=== PATIENT | male | born 1955 | race Caucasian/White ===

== ENCOUNTER 2022-11-02 16:09 | Emergency (ER) | payer MEDICARE, OTHER, SELFPAY ==
[2022-11-02 16:12] VITALS: BP 157/88; PULSE 61; RESP 16; TEMP 36.7; O2SAT 98
--- NOTE | 2022-11-02 17:08 | DI.RAD.S_ITS ---
PROCEDURE: XR LUMBAR SPINE 2-3V INDICATIONS: Lumbar radiculopathy, spasms, history compression fracture TECHNIQUE: 3 views of the lumbar spine were acquired. COMPARISON: None. FINDINGS: Bones: 5 [id number] vertebrae are present. Small vertebral body osteophytes. Disc space height loss most pronounced at L2-L3 and L5-S1. There is normal bony alignment. No vertebral body compression fractures. No suspicious bony lesions. Soft tissues: Overlying bowel gas pattern is normal. No suspicious soft tissue calcifications. IMPRESSION: [id number] lumbar spine DDD. Dictated by: Ten Chadwick M.D. on 11/02/2022 at 17:32 Approved by: Ten Chadwick M.D. on 11/02/2022 at 17:34
--- NOTE | 2022-11-02 17:09 | ED_ITS ---
HPI - Back Pain/Injury <BA Morris - Last Filed: 11/02/22 18:20> General Chief Complaint: Back Pain/Injury Stated Complaint: back pain Time Seen by Provider: 11/02/22 16:52 Source: patient History of Present Illness HPI Narrative: This is a 67-year-old gentleman presents emergency department low back pain over the last 24 hours with spasms of his low back, primarily on the left side and his upper legs. He denies any weakness, sensation changes, groin paresthesia, dizziness, fever, urinary frequency, incontinence or retention. States that 20 years ago he had a compression fracture of his lumbar spine and has had occasio nal flares of his low back none for many years. He denies any weakness, states that he had spasms and was difficult to sleep. He mowed the lawn yesterday with which exacerbated his low back pain. Related Data Previous Rx's Medication Instructions Recorded hydrocodone 5 mg-acetaminophen 325 1 tab PO TID PRN pain #14 tabs 11/02/22 mg tablet lidocaine 5 % topical patch 1 patch topical DAILY #15 ea 11/02/22 (Lidoderm) naproxen 375 mg tablet 375 mg PO BID PRN pain #20 tabs 11/02/22 omeprazole 20 mg capsule,delayed 20 mg PO BID 7 days #14 caps 11/02/22 release prednisone 50 mg tablet 50 mg PO DAILY #5 tabs 11/02/22 Allergies Allergy/AdvReac Type Severity Reaction Status Date / Time iodine AdvReac Verified 11/02/22 16:16 Penicillins AdvReac Verified 11/02/22 16:16 Review of Systems <BA Morris - Last Filed: 11/02/22 18:20> Review of Systems ROS Unobtainable: All systems reviewed & are unremarkable except as noted in HPI and below Exam <BA Morris - Last Filed: 11/02/22 18:20> Narrative Exam Narrative: Reviewed vitals signs and nursing notes. General: Pleasant, sitting upright, in no acute distress, well groomed, afebrile HEENT: symmetrical facial expressions, moist mucous membranes, neck is supple CV: regular rate and rhythm, warm extremities Respiratory: normal work of breathing, without tachypnea or hypoxia. GI: abdomen soft, nondistended, without CVA tenderness bilaterally. MSK: moves all extremities, no weakness, normal tone, ambulatory without deficit, no tenderness along his cervical/thoracic/lumbar or sacral spine, paraspinal musculature especially on the left side of his lumbar spine is tense, no sensation deficit, normal reflexes, flexion extension against resistance is equal bilaterally on his lower extremities. No rash or sensation deficit. Skin: brisk capillary refill, without rash or wound Neuro: clear speech and normal cognition, A&O x3, GCS 15, no focal motor or sensation deficits Initial Vital Signs Initial Vital Signs: Vital Signs Temperature 98.0 F 11/02/22 16:12 Pulse Rate 61 11/02/22 16:12 Respiratory Rate 16 11/02/22 16:12 Blood Pressure 157/88 H 11/02/22 16:12 Pulse Oximetry 98 11/02/22 16:12 Oxygen Delivery Method Room Air 11/02/22 16:12 <Cal Samuel DO - Last Filed: 11/03/22 12:16> Initial Vital Signs Initial Vital Signs: Vital Signs Temperature 98.0 F 11/02/22 16:12 Pulse Rate 61 11/02/22 16:12 Respiratory Rate 16 11/02/22 16:12 Blood Pressure 157/88 H 11/02/22 16:12 Pulse Oximetry 98 11/02/22 16:12 Oxygen Delivery Method Room Air 11/02/22 16:12 Course <BA Morris - Last Filed: 11/02/22 18:20> Orders Ordered: Discontinued Medications Hydrocodone Bitart/Acetaminophen (Hydrocodone/Acet 5/325 Tablet) 1 tab PO NOW ONE Stop: 11/02/22 16:54 Last Admin: 11/02/22 17:16 Dose: 1 tab Documented By: JAZ Ketorolac Tromethamine (Ketorolac 30 Mg/Ml Vial) 30 mg IM NOW ONE Stop: 11/02/22 16:54 Last Admin: 11/02/22 17:15 Dose: 30 mg Documented By: JAZ Lidocaine (Lidocaine Patch 1 Each Adh..Patch) 1 each TOP NOW ONE Stop: 11/02/22 16:54 Last Admin: 11/02/22 17:15 Dose: 1 each Documented By: JAZ Methocarbamol (Methocarbamol 500 Mg Tablet) 750 mg PO NOW ONE Stop: 11/02/22 16:54 Last Admin: 11/02/22 17:14 Dose: 750 mg Documented By: JAZ Prednisone (Prednisone 20 Mg Tablet) 60 mg PO NOW ONE Stop: 11/02/22 17:09 Last Admin: 11/02/22 17:14 Dose: 60 mg Documented By: JAZ Vital Signs Vital signs: Vital Signs - 8 hr 11/02/22 16:12 11/02/22 17:44 Temperature 98.0 F Pulse Rate 61 50 L Respiratory Rate 16 17 Blood Pressure 157/88 H 148/84 H Pulse Oximetry 98 98 Oxygen Delivery Method Room Air Room Air <Cal Samuel DO - Last Filed: 11/03/22 12:16> Orders Ordered: Discontinued Medications Hydrocodone Bitart/Acetaminophen (Hydrocodone/Acet 5/325 Tablet) 1 tab PO NOW ONE Stop: 11/02/22 16:54 Last Admin: 11/02/22 17:16 Dose: 1 tab Documented By: JAZ Ketorolac Tromethamine (Ketorolac 30 Mg/Ml Vial) 30 mg IM NOW ONE Stop: 11/02/22 16:54 Last Admin: 11/02/22 17:15 Dose: 30 mg Documented By: JAZ Lidocaine (Lidocaine Patch 1 Each Adh..Patch) 1 each TOP NOW ONE Stop: 11/02/22 16:54 Last Admin: 11/02/22 17:15 Dose: 1 each Documented By: JAZ Methocarbamol (Methocarbamol 500 Mg Tablet) 750 mg PO NOW ONE Stop: 11/02/22 16:54 Last Admin: 11/02/22 17:14 Dose: 750 mg Documented By: JAZ Prednisone (Prednisone 20 Mg Tablet) 60 mg PO NOW ONE Stop: 11/02/22 17:09 Last Admin: 11/02/22 17:14 Dose: 60 mg Documented By: JAZ Vital Signs Vital signs: Vital Signs - 8 hr 11/02/22 16:12 11/02/22 17:44 Temperature 98.0 F Pulse Rate 61 50 L Respiratory Rate 16 17 Blood Pressure 157/88 H 148/84 H Pulse Oximetry 98 98 Oxygen Delivery Method Room Air Room Air MDM - Back Pain/Injury <BA Morris - Last Filed: 11/02/22 18:20> Imaging Data Lumbar XR: Radiologist's Impression: PROCEDURE:? XR LUMBAR SPINE 2-3V ? INDICATIONS:? Lumbar radiculopathy, spasms, history compression fracture ? TECHNIQUE:? 3 views of the lumbar spine were acquired.? ? COMPARISON:? None. ? FINDINGS:? ? Bones:? 5 pfh-jst-[id number] vertebrae are present.? Small vertebral body osteophytes.? Disc space height loss most pronounced at L2-L3 and L5-S1.? There is normal bony alignment.? No vertebral body compression fractures.? No suspicious bony lesions.? ? Soft tissues:? Overlying bowel gas pattern is normal.? No suspicious soft tissue calcifications.? ? ? IMPRESSION:? [id number]-lk-[id number] lumbar spine DDD. ? ? Dictated by: Ten Chadwick M.D. on 11/02/2022 at 17:32 ? ? Approved by: Ten Chadwick M.D. on 11/02/2022 at 17:34 ? MDM Narrative Medical decision making narrative: Chief Complaint: Exacerbation of low back pain left-sided sciatica Independent historian: Patient Multiple etiologies for patient's complaint considered including, but not limited to: disc injury/herniation, nerve compression/radiculopathy, paraspinal or other muscular strain, chronic pain, acute fracture, urinary tract infection, osteoarthritis, degenerative disc disease, cauda equina, osteomyelitis, epidural abscess, spinal stenosis, ligamental injury. I have independently reviewed the patient's vital signs and nursing notes as well as prior records if available. My interpretation of imaging: Lumbar spine x-ray shows reduced disk height between L2 and 3 and L5-S1. Course of care: Patient's pain had moderately improved by the time of discharge, x-ray was negative for compression fracture other acute abnormality. breading machine tender but free of any obvious external abnormalities. Patient exam notes decreased range of motion and muscle spasm, but no CVA tenderness, or vertebral point tenderness. There are no symptoms of cauda equina such as saddle anesthesia, and decreased reflexes, decreased sensation or strength. Discussed MRI as patient was concerned about this but he does not have any groin paresthesia, red flag symptoms of back pain, urinary retention or muscle weakness, his reflexes were tested and equal bilaterally, no weakness to lower extremities on exam. Left leg lift exacerbates his symptoms. He will follow up with his primary care provider for referral to physical therapy and or advanced imaging as needed. He was given muscle relaxers, prednisone, naproxen, lidocaine patches and omeprazole and hydrocodone for his week Social considerations that may affect disposition: none Questions are addressed and there is agreement with the plan and for follow-up. I consulted with the ED attending physician Dr. Samuel as needed for higher level of care considerations and they were available for discussion and recommendations regarding plan of care and diagnostic testing. Patient is appropriate for outpatient management. Discharge Plan Departure Patient Disposition: Home Clinical Impression: Lumbar back pain with radiculopathy affecting left lower extremity Degenerative disc disease Qualifiers: Spinal region: lumbosacral Qualified Code(s): M51.37 - Other intervertebral disc degeneration, lumbosacral region Instructions: DI for Sciatica, DI for Muscle Strain, DI for Back Spasm Activity Restrictions/Additional Instructions: *You have been diagnosed with radiculopathy meaning nerve root irritation and pain coming from your lumbar spine. You have degenerative disc disease of your lumbar spine meaning the discs are worn out between L2 and 3 and L5 and S1. There are no compression fractures now, no suspicious bony areas of concern. If you do not have improvement in the next 1-2 days, please have your primary care provider order you an MRI or come back to the emergency department especially if you have weakness, numbness, tingling, if you are unable to urinate, or if you have a fever. These are concerning symptoms. Take the next dose of prednisone tomorrow, and take it daily with food and water, omeprazole to protect your s tomach from the acid in the medications. Take naproxen morning and night as needed for pain, it may provide better pain control than diclofenac. Use lidocaine patches over the painful area to come down this tissue. You can leave it on for 12 hours. Use a pain pill every 6 hours for breakthrough pain and to help you sleep. Avoid constipation and take MiraLax daily if you have it at home. Follow-up with your primary care provider for referral to physical therapy and for an MRI if *What to do: *Please continue to take your regular medications as directed. [ ] New medication prescriptions sent to your pharmacy: [ ] [ ] New medication written as a paper prescription [ ] No new medications given *Please call and schedule follow up with your primary care provider in 2-3 days, at least for an update. Let them know you were seen in the Emergency Department for the above problem. We will electronically transmit a record of today's note if your PCP or specialist is in our system. *If you do not have a primary care provider please contact [phone] to establish care with one of the [facility] primary care providers. *Return to the Emergency Department for worsening symptoms, inability to keep liquids down, fever greater than 101F, chills, or other concerning symptom. Prescriptions: New prednisone 50 mg tablet 50 mg PO DAILY Qty: 5 0RF lidocaine [Lidoderm] 5 % adhesive patch,medicated 1 patch topical DAILY Qty: 15 0RF Rx Instructions: leave on most painful area for up to 12 hrs naproxen 375 mg tablet 375 mg PO BID PRN (Reason: pain) Qty: 20 0RF hydrocodone-acetaminophen 5-325 mg tablet 1 tab PO TID PRN (Reason: pain) Qty: 14 0RF omeprazole 20 mg capsule,delayed release(DR/EC) 20 mg PO BID 7 Days Qty: 14 0RF Referrals: [facility] [Provider Group] Veronica Michele PA-C [Non-Staff] - Stand Alone Forms: Patient Portal/API <Cal Samuel, - Last Filed: 11/03/22 12:16> Cosign ED Attending Latriceature Attestation: I was immediately available in the department for consultation. Documentation has been reviewed. I agree with assessment and plan.
[2022-11-02] MEDS: methocarbamoL 500 MG TABLET 750 MG PO (17:14)
[2022-11-02] MEDS: predniSONE 20 MG TABLET 60 MG PO (17:14)
[2022-11-02] MEDS: LIDOCAINE PATCH 1 EACH ADH..PATCH TOP (17:15)
[2022-11-02] MEDS: KETOROLAC 30 MG/ML VIAL IM (17:15)
[2022-11-02] MEDS: HYDROCODONE/ACET 5/325 TABLET 1 TAB PO (17:16)
[2022-11-02 17:17] VITALS: BMI 25.0
[2022-11-02 17:44] VITALS: BP 148/84; PULSE 50; RESP 17; O2SAT 98
== END 2022-11-02 17:52 | disposition home or self-care (01) ==
PROVIDERS: Emergency Provider Nurse Practitioner Critical Care Medicine
DX: M54.16 Radiculopathy, lumbar region (principal); M51.37 Other intervertebral disc degeneration, lumbosacral region
CPT/HCPCS: 72100; 96372; 99283; 99284; J1885

== ENCOUNTER 2023-10-29 15:15 | Outpatient (RCR) | payer MEDICARE, OTHER, SELFPAY ==
--- NOTE | 2023-08-22 18:26 | PT.OPPOC ---
Addendum entered and electronically signed by Jo Johnson, PT 10/08/23 15:26: POC resent 10/07 Original Note: Physical, Occupational & Speech Therapy At [facility] Current Diagnoses Presence of left artificial shoulder joint (08/22/23) Visit Care Team Role Provider Type Jaylan Jimenez PA-C Attending Provider Non-Staff Referring Provider Specialty: Medical Address: [address] [place] [address], [facility] Fax: Email: Plan Of Care PT-OP-T Assessment and Plan Start: 08/16/23 18:27 Freq: Status: Active Protocol: Document 08/22/23 16:48 [facility] (Rec: 08/22/23 18:07 [facility] [id number]) Physical Therapy Assessment Rehab Potential Rehabilitation Potential Good Evaluation Complexity Number of Personal Factors/Comorbidities 3 or More Number of Body Systems Impaired 4 or More Clinical Presentation at Evaluation Evolving Impairments Impairments Activity Tolerance, Coordination,Functional Activities,Functional Mobility ,Pain,Posture,ROM,Soft Tissue Mobility,Strength Goals ROM Short Term Goal (STG) Pt will have full AROM in all planes except ER (d/t protocol ) w/o pain STG Duration 10/08 Correction Goal (LTG) Pt will have full ER at side and 90/90 ER to allow full return to activity w/o pain LTG Duration 6/ strength Impairment n/t d/t protocol Short Term Goal (STG) pt will be indep w/HEP w/o cues needed STG Duration 10/08/23 Box Icer Goal (LTG) pt will score at least 4+/5 on all MMT in all planes L shoulder to allow return to LTG Duration 6/5 activity Box Icer Goal (LTG) Pt will be able to return to gym workout, hiking w/a backpack, bike and kaying w/o inc pain LTG Duration 11/14/23 Quick dash Impairment 54.5 Short Term Goal (STG) Pt will improve quick dash score to no higher than 34 to show improved functional ability. STG Duration 10/08 Box Icer Goal (LTG) Pt will improve quick dash score to no higher than 7 to show improved functional ability. LTG Duration 11/14/23 Assessment Summary Assessment Pt presents 7 weeks s/p Ream and run TSA with good pain control and good report from surgeon at follow up this week . He is still not allowed to stretch into ER and cannot do IR w/resistance until cleared by physician. He is typically very active at the gym (push ups, pull ups, planks) and notes core exercises help him manage his chronic back pain so that is inc w/inabilityt o do those exercises. He likes to kayak, wt lift, bike and hike but is unable to do those activities right now d/t restrictions. He will have slow progression d/t surgeon protocol and will benefit from skilled PT to address his limitations and return him back to high level function. Physical Therapy Plan Frequency and Duration Frequency of Treatment 1-2x/wk Duration of treatment (weeks) 12 Plan of Care Start Date 08/22/23 Plan of Care End Date 11/14/23 Therapeutic Interventions Therapeutic Interventions Gait Training,Home Exercise Program,Joint Mobilizations, Manual Therapy,Neuromuscular Re-education,Patient/Caregiver Education,Self-Care/Home Management,Soft Tissue Mobilization,Taping, Therapeutic Activities, Therapeutic Exercises Modalities Cold Pack/Ice Massage,Electric Stimulation,Hot Packs, Infrared Therapy,Ultrasound Next Visit Focus/Plan Next Note Type Treatment Note Next Visit Plan no ER past neutral; no resisted IR core exercises w/UE use but no WB on shoulder, go over exercises from pt website [email or web address]- [email or web address] Gentle STM & work on gentle jt mobs for mobility Plan of Care Dates Plan of Care Start Date 08/22/23 Plan of Care End Date 11/14/23 Electronically Signed by: Jo Johnson, PT 08/27/23 4350 If you are in agreement with this Plan of Care, please return a signed and dated copy. I have reviewed this Plan of Care and certify that the skilled therapy services above are required to meet the patient?s needs. Physician Signature Date Printed Name and Credentials Clinical Instructor Signature Printed Name and Credentials
--- NOTE | 2023-08-22 18:26 | PT.OIE ---
Current Diagnoses Presence of left artificial shoulder joint (08/22/23) Visit Care Team Role Provider Type Jaylan Jimenez PA-C Attending Provider Non-Staff Referring Provider Specialty: Medical Address: [address] [place] [address], [place], [place], [facility] Fax: Email: Physical Therapy Initial Evaluation PT-OP-A Visit Information Start: 08/16/23 18:27 Freq: Status: Active Protocol: Document 08/22/23 16:48 [facility] (Rec: 08/22/23 18:07 [facility] [id number]) Out-Patient Physical Therapy Visit Information Visit Information Visit Type Initial Evaluation Visit Note 06/20 Visit Start Time 16:50 Visit Stop Time 17:45 Visit Number 1 Number of FAMILY SERVICES COORDINATOR Visits 0 Precautions Precautions no ER past neutral; no resisted IR PT-OP-B Current Condition Start: 08/16/23 18:27 Freq: Status: Active Protocol: Document 08/22/23 16:48 [facility] (Rec: 08/22/23 18:07 [facility] [id number]) Current Condition History of Current Condition Onset Date 7 weeks Current Complaints ream and run TSA L History of Current Condition Pt reports ream and run TSA 7 weeks ago. Pt saw the doctor 2 days ago and is happy w/ recovery. Next follow up in 6 weeks. Pt reports no stretching into ER and no IR against resistance. He has herniated disc in his back that he has to be mindful of and has to have a really strong core. Pt reports shoulder just wore out. Pt is left handed Pt protocol: [email or web address]. html Treatment Goals Patient/Caregiver Goals Be able to do push ups, pull ups, planks, wt lifting, kayaking, bike, hike ( backpacking) PT-OP-C Subjective Start: 08/16/23 18:27 Freq: Status: Active Protocol: Document 08/22/23 16:48 [facility] (Rec: 08/27/23 15:07 [facility] [id number]) Patient Questionnaires Quick Dash- Upper Extremity Quick Dash UE Score 54.5 PT-OP-J Posture/Palpation/Skin Start: 08/16/23 18:27 Freq: Status: Active Protocol: Document 08/22/23 16:48 [facility] (Rec: 08/22/23 18:07 [facility] [id number]) Posture Evaluation Comments Posture Comments downward rotated, abd, elevated L scap, ant in glenoid (humerus) L>R; 1st rib elevated L PT-OP-K Range of Motion Start: 08/16/23 18:27 Freq: Status: Active Protocol: Document 08/22/23 16:48 [facility] (Rec: 08/22/23 18:07 [facility] [id number]) Shoulder Goniometric Range of Motion Shoulder Left Passive Flexion 130 Abduction 110 Internal Rotation 62 Comments IR at 45 deg Right Active Flexion 154 Extension 72 Abduction 180 External Rotation at 90 degrees 86 Abduction Internal Rotation 34 Internal Rotation Behind Back (text) T5 Left Active Flexion 112 Extension 58 Abduction 123 Internal Rotation Behind Back (text) L5 Comments scap elevation w/overhead PT-OP-Q Treatments Start: 08/16/23 18:27 Freq: Status: Active Protocol: Document 08/22/23 16:48 [facility] (Rec: 08/22/23 18:07 [facility] [id number]) Self-Care/Home Management Treatment Education Other Education 24 min: discussion of procedure and mm that they retract and how subscapularis works. Discussed w/pt apprpriate shoulder mechanics w/model (discussed ribs, scap, AC, SC, and GH mobility needs ); edu re: importance of core rehab for shoulder rehab PT-OP-T Assessment and Plan Start: 08/16/23 18:27 Freq: Status: Active Protocol: Document 08/22/23 16:48 [facility] (Rec: 08/22/23 18:07 [facility] [id number]) Physical Therapy Assessment Rehab Potential Rehabilitation Potential Good Evaluation Complexity Number of Personal Factors/Comorbidities 3 or More Number of Body Systems Impaired 4 or More Clinical Presentation at Evaluation Evolving Impairments Impairments Activity Tolerance, Coordination,Functional Activities,Functional Mobility ,Pain,Posture,ROM,Soft Tissue Mobility,Strength Goals ROM Short Term Goal (STG) Pt will have full AROM in all planes except ER (d/t protocol ) w/o pain STG Duration 4/30 Detention Goal (LTG) Pt will have full ER at side and 90/90 ER to allow full return to activity w/o pain LTG Duration 6/5 strength Impairment n/t d/t protocol Short Term Goal (STG) pt will be indep w/HEP w/o cues needed STG Duration 10/08/23 Dry Transfer Worker Goal (LTG) pt will score at least 4+/5 on all MMT in all planes L shoulder to allow return to LTG Duration 11/13 activity Detention Goal (LTG) Pt will be able to return to gym workout, hiking w/a backpack, bike and kaying w/o inc pain LTG Duration 11/14/23 Quick dash Impairment 54.5 Short Term Goal (STG) Pt will improve quick dash score to no higher than 34 to show improved functional ability. STG Duration 10/08 Detention Goal (LTG) Pt will improve quick dash score to no higher than 7 to show improved functional ability. LTG Duration 11/14/23 Assessment Summary Assessment Pt presents 7 weeks s/p Ream and run TSA with good pain control and good report from surgeon at follow up this week . He is still not allowed to stretch into ER and cannot do IR w/resistance until cleared by physician. He is typically very active at the gym (push ups, pull ups, planks) and notes core exercises help him manage his chronic back pain so that is inc w/inabilityt o do those exercises. He likes to kayak, wt lift, bike and hike but is unable to do those activities right now d/t restrictions. He will have slow progression d/t surgeon protocol and will benefit from skilled PT to address his limitations and return him back to high level function. Physical Therapy Plan Frequency and Duration Frequency of Treatment 1-2x/wk Duration of treatment (weeks) 12 Plan of Care Start Date 08/22/23 Plan of Care End Date 11/14/23 Therapeutic Interventions Therapeutic Interventions Gait Training,Home Exercise Program,Joint Mobilizations, Manual Therapy,Neuromuscular Re-education,Patient/Caregiver Education,Self-Care/Home Management,Soft Tissue Mobilization,Taping, Therapeutic Activities, Therapeutic Exercises Modalities Cold Pack/Ice Massage,Electric Stimulation,Hot Packs, Infrared Therapy,Ultrasound Next Visit Focus/Plan Next Note Type Treatment Note Next Visit Plan no ER past neutral; no resisted IR core exercises w/UE use but no WB on shoulder, go over exercises from pt website [email or web address]. Medication [email or web address]- exercises.html Gentle STM & work on gentle jt mobs for mobility
--- NOTE | 2023-08-23 09:00 | PT-OP ANOTE ---
[facility] office called re: sending protocol and chart notes and surgical report. Person on phone notes she will send a message over.
--- NOTE | 2023-08-29 18:01 | PT.OTN ---
Current Diagnoses Presence of left artificial shoulder joint (08/29/23) Physical Therapy Treatment Note PT-OP-A Visit Information Start: 08/16/23 18:27 Freq: Status: Active Protocol: Document 08/29/23 17:34 [facility] (Rec: 08/30/23 14:04 [facility] [id number]) Out-Patient Physical Therapy Visit Information Visit Information Visit Type Treatment Note Visit Start Time 16:47 Visit Stop Time 17:40 Visit Number 2 Number of VALIDATION SCIENTIST Visits 0 PT-OP-B Current Condition Start: 08/16/23 18:27 Freq: Status: Active Protocol: Document 08/22/23 16:48 [facility] (Rec: 08/22/23 18:07 [facility] [id number]) Current Condition History of Current Condition Onset Date 7 weeks Current Complaints ream and run TSA L History of Current Condition Pt reports ream and run TSA 7 weeks ago. Pt saw the doctor 2 days ago and is happy w/ recovery. Next follow up in 6 weeks. Pt reports no stretching into ER and no IR against resistance. He has herniated disc in his back that he has to be mindful of and has to have a really strong core. Pt reports shoulder just wore out. Pt is left handed Pt protocol: [email or web address]. html Treatment Goals Patient/Caregiver Goals Be able to do push ups, pull ups, planks, wt lifting, kayaking, bike, hike ( backpacking) PT-OP-C Subjective Start: 08/16/23 18:27 Freq: Status: Active Protocol: Document 08/29/23 17:34 [facility] (Rec: 08/30/23 14:04 [facility] [id number]) OP-PT Subjective Patient Comments Patient Comments Pt reports compliance w/ exercises PT-OP-J Posture/Palpation/Skin Start: 08/16/23 18:27 Freq: Status: Active Protocol: Document 08/22/23 16:48 [facility] (Rec: 08/22/23 18:07 [facility] [id number]) Posture Evaluation Comments Posture Comments downward rotated, abd, elevated L scap, ant in glenoid (humerus) L>R; 1st rib elevated L PT-OP-K Range of Motion Start: 08/16/23 18:27 Freq: Status: Active Protocol: Document 08/22/23 16:48 [facility] (Rec: 08/22/23 18:07 [facility] [id number]) Shoulder Goniometric Range of Motion Shoulder Left Passive Flexion 130 Abduction 110 Internal Rotation 62 Comments IR at 45 deg Right Active Flexion 154 Extension 72 Abduction 180 External Rotation at 90 degrees 86 Abduction Internal Rotation 34 Internal Rotation Behind Back (text) T5 Left Active Flexion 112 Extension 58 Abduction 123 Internal Rotation Behind Back (text) L5 Comments scap elevation w/overhead PT-OP-Q Treatments Start: 08/16/23 18:27 Freq: Status: Active Protocol: Document 08/29/23 17:34 [facility] (Rec: 08/30/23 14:04 [facility] [id number]) Therapeutic Exercises Supine Exercises foam roll Supine Exercise Name B flex Side bilateral Reps/Minutes 10 bug Side bilateral Reps/Minutes 20 Comments max cues for spine neutral throughout Standing Exercises paloff press Side bilateral Equipment Used peach band 2 bands Reps/Minutes 20 ea Manual Therapy Treatment Soft Tissue Mobilization superior Body Location L UT, scalenes, LS Mobilization Type Rolling Intensity/Depth Moderate Comments sup & s/l w/shrug and cervical rot pec Body Location L major/minor Mobilization Type Rolling,Sustained Pressure Intensity/Depth Moderate Body Position Supine Comments w/flex Joint Mobilizations AC Joint L clavicle ant FM w/shrug Body Position Sidelying rib Joint L 1 and 2 caudal FM w/shrug Body Position Sidelying SC Joint L caudal FM w/shrug Body Position Sidelying Self-Care/Home Management Treatment Education Other Education 15 min: edu re: anatomy of subscap w/use of skeleton and edu of shoulder mechanics. Edu how manual will help w/his ROM and how important it is to get this early. 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 [employer] Repair Goal (LTG) Pt will have full ER at side and 90/90 ER to allow full return to activity w/o pain LTG Duration 6/5 strength Impairment n/t d/t protocol Short Term Goal (STG) pt will be indep w/HEP w/o cues needed STG Duration 10/08/23 [employer] Rep[employer] Goal (LTG) pt will score at least 4+/5 on all MMT in all planes L shoulder to allow return to LTG Duration 11/13 activity Usp Goal (LTG) Pt will be able to return to gym workout, hiking w/a backpack, bike and kaying w/o inc pain LTG Duration 11/14/23 Quick dash Impairment 54.5 Short Term Goal (STG) Pt will improve quick dash score to no higher than 34 to show improved functional ability. STG Duration 10/08 Usp Goal (LTG) Pt will improve quick dash score to no higher than 7 to show improved functional ability. LTG Duration 11/14/23 Assessment Summary Assessment Pt did well with new exercises w/o c/o pain and had imrpoved flex after foam roll. He did well w/core exercises w/cues and was reminded progression of strength must be very slow and gradual. He had improved flex w/manual mobs but did not have much improve w/L rib depression as signficiant soft tissue restriction. Physical Therapy Plan Frequency and Duration Frequency of Treatment 1-2x/wk Duration of treatment (weeks) 12 Plan of Care Start Date 08/22/23 Plan of Care End Date 11/14/23 Next Visit Focus/Plan Next Note Type Treatment Note Next Visit Plan no ER past neutral; no resisted IR core exercises w/UE use but no WB on shoulder, go over exercises from pt website [email or web address] for form Gentle STM & work on gentle jt mobs for mobility (AC, GH, SC , thoracic, ribs, scap
--- NOTE | 2023-08-31 16:51 | PT.OTN ---
Current Diagnoses Presence of left artificial shoulder joint (08/31/23) Physical Therapy Treatment Note PT-OP-A Visit Information Start: 08/16/23 18:27 Freq: Status: Active Protocol: Document 08/31/23 15:25 [facility] (Rec: 08/31/23 16:51 [facility] [id number]) Out-Patient Physical Therapy Visit Information Visit Information Visit Type Treatment Note Visit Start Time 16:47 Visit Stop Time 17:40 Visit Number 3 Number of COLD PRESS OPERATOR Visits 0 PT-OP-B Current Condition Start: 08/16/23 18:27 Freq: Status: Active Protocol: Document 08/22/23 16:48 [facility] (Rec: 08/22/23 18:07 [facility] [id number]) Current Condition History of Current Condition Onset Date 7 weeks Current Complaints ream and run TSA L History of Current Condition Pt reports ream and run TSA 7 weeks ago. Pt saw the doctor 2 days ago and is happy w/ recovery. Next follow up in 6 weeks. Pt reports no stretching into ER and no IR against resistance. He has herniated disc in his back that he has to be mindful of and has to have a really strong core. Pt reports shoulder just wore out. Pt is left handed Pt protocol: [email or web address]. html Treatment Goals Patient/Caregiver Goals Be able to do push ups, pull ups, planks, wt lifting, kayaking, bike, hike ( backpacking) PT-OP-C Subjective Start: 08/16/23 18:27 Freq: Status: Active Protocol: Document 08/31/23 15:25 [facility] (Rec: 08/31/23 16:51 [facility] [id number]) OP-PT Subjective Patient Comments Patient Comments Pt reports HEP compliance and increased back pain since surgery, including inability to sleep in bed and now sleeping in recliner. His foam roller is half the length so he's lying on it with another one at his low back. PT-OP-J Posture/Palpation/Skin Start: 08/16/23 18:27 Freq: Status: Active Protocol: Document 08/22/23 16:48 [facility] (Rec: 08/22/23 18:07 [facility] [id number]) Posture Evaluation Comments Posture Comments downward rotated, abd, elevated L scap, ant in glenoid (humerus) L>R; 1st rib elevated L PT-OP-K Range of Motion Start: 08/16/23 18:27 Freq: Status: Active Protocol: Document 08/22/23 16:48 [facility] (Rec: 08/22/23 18:07 [facility] [id number]) Shoulder Goniometric Range of Motion Shoulder Left Passive Flexion 130 Abduction 110 Internal Rotation 62 Comments IR at 45 deg Right Active Flexion 154 Extension 72 Abduction 180 External Rotation at 90 degrees 86 Abduction Internal Rotation 34 Internal Rotation Behind Back (text) T5 Left Active Flexion 112 Extension 58 Abduction 123 Internal Rotation Behind Back (text) L5 Comments scap elevation w/overhead PT-OP-Q Treatments Start: 08/16/23 18:27 Freq: Status: Active Protocol: Document 08/31/23 15:25 [facility] (Rec: 08/31/23 16:51 [facility] [id number]) Therapeutic Exercises Supine Exercises foam roll Supine Exercise Name B flex Side bilateral Equipment Used full black foam roller Reps/Minutes 10 Comments cues for gentle, pain-free range only and PPT bug Supine Exercise Name 1. TrA w/ PPT & breathwork 2. w/ deadbug 3. BKFO Side bilateral Equipment Used self-monitoring for TrA Reps/Minutes 20 Comments max cues for spine neutral throughout Standing Exercises paloff press Side bilateral Equipment Used peach band 2 bands Reps/Minutes 20 ea Manual Therapy Treatment Soft Tissue Mobilization superior Body Location L UT, scalenes, LS Mobilization Type Cross-Friction,Instrument Assisted,Rolling,Sustained Pressure,Trigger Point Release Intensity/Depth Moderate Body Position Hooklying Comments w/ cervical rot and breathwork -I/s pt in self-STM to L UT w/ theracane pec Body Location L major/minor Mobilization Type Rolling,Sustained Pressure Intensity/Depth Moderate Body Position Supine Comments w/flex and breathwork. Manual Techniques PROM Type flex/abd Body Location LUE Body Position Hooklying Reps/Duration 4' Comments I can tell you've increased my range of motion already. Self-Care/Home Management Treatment Education Other Education -I/s pt in self-STM w/ theracane -Pt i/s in self-monitoring TrA for appropriate activation. -Edu to pt re: deep breathing for pain dampening and decreasing muscle guarding, as well as relationship with diaphragm and core to understand importance of not breathholding w/ ex's. PT-OP-T Assessment and Plan Start: 08/16/23 18:27 Freq: Status: Active Protocol: Document 08/31/23 15:25 [facility] (Rec: 08/31/23 16:51 [facility] [id number]) Physical Therapy Assessment Goals ROM Short Term Goal (STG) Pt will have full AROM in all planes except ER (d/t protocol ) w/o pain STG Duration 10/08 Snf Goal (LTG) Pt will have full ER at side and 90/90 ER to allow full return to activity w/o pain LTG Duration 11/13 strength Impairment n/t d/t protocol Short Term Goal (STG) pt will be indep w/HEP w/o cues needed STG Duration 10/08/23 Snf Goal (LTG) pt will score at least 4+/5 on all MMT in all planes L shoulder to allow return to LTG Duration 6 activity Snf Goal (LTG) Pt will be able to return to gym workout, hiking w/a backpack, bike and kaying w/o inc pain LTG Duration 11/14/23 Quick dash Impairment 54.5 Short Term Goal (STG) Pt will improve quick dash score to no higher than 34 to show improved functional ability. STG Duration 10/08 Snf Goal (LTG) Pt will improve quick dash score to no higher than 7 to show improved functional ability. LTG Duration 11/14/23 Assessment Summary Assessment Treatment focus on core education, strengthening, and LUE manual therapy. Pt i/s in self-monitoring TrA for appropriate activation. He requires tactile cues to maintain PPT w/ TrA activation and breathwork w/ bug and w/ BKFO but demo's improved performance w/ repetition and cueing. Edu to pt re: deep breathing for pain dampening and decreasing muscle guarding, as well as relationship with diaphragm and core to understand importance of not breathholding w/ ex's. I/s pt in self-STM w/ theracanePt's pain-free L shoulder range of motion improves after manual therapy. Physical Therapy Plan Frequency and Duration Frequency of Treatment 1-2x/wk Duration of treatment (weeks) 12 Plan of Care Start Date 08/22/23 Plan of Care End Date 11/14/23 Therapeutic Interventions Therapeutic Interventions Gait Training,Home Exercise Program,Joint Mobilizations, Manual Therapy,Neuromuscular Re-education,Patient/Caregiver Education,Self-Care/Home Management,Soft Tissue Mobilization,Taping, Therapeutic Activities, Therapeutic Exercises Modalities Cold Pack/Ice Massage,Electric Stimulation,Hot Packs, Infrared Therapy,Ultrasound Next Visit Focus/Plan Next Note Type Treatment Note Next Visit Plan no ER past neutral; no resisted IR core exercises w/UE use but no WB on shoulder, go over exercises from pt website [email or web address] for form Gentle STM & work on gentle jt mobs for mobility (AC, GH, SC , thoracic, ribs, scap
--- NOTE | 2023-09-04 17:00 | PT.OTN ---
Current Diagnoses Presence of left artificial shoulder joint (09/04/23) Physical Therapy Treatment Note PT-OP-A Visit Information Start: 08/16/23 18:27 Freq: Status: Active Protocol: Document 09/04/23 14:16 [facility] (Rec: 09/04/23 16:48 [facility] [id number]) Out-Patient Physical Therapy Visit Information Visit Information Visit Type Treatment Note Visit Start Time 15:18 Visit Stop Time 16:15 Visit Number 4 Number of SED HIGH SCHOOL TEACHER Visits 1 PT-OP-B Current Condition Start: 08/16/23 18:27 Freq: Status: Active Protocol: Document 08/22/23 16:48 [facility] (Rec: 08/22/23 18:07 [facility] [id number]) Current Condition History of Current Condition Onset Date 7 weeks Current Complaints ream and run TSA L History of Current Condition Pt reports ream and run TSA 7 weeks ago. Pt saw the doctor 2 days ago and is happy w/ recovery. Next follow up in 6 weeks. Pt reports no stretching into ER and no IR against resistance. He has herniated disc in his back that he has to be mindful of and has to have a really strong core. Pt reports shoulder just wore out. Pt is left handed Pt protocol: [email or web address]. html Treatment Goals Patient/Caregiver Goals Be able to do push ups, pull ups, planks, wt lifting, kayaking, bike, hike ( backpacking) PT-OP-C Subjective Start: 08/16/23 18:27 Freq: Status: Active Protocol: Document 09/04/23 14:16 [facility] (Rec: 09/04/23 16:48 [facility] [id number]) OP-PT Subjective Patient Comments Patient Comments Froilan brings personal theracane and reports effective for working on trigger points, and is awaiting full foam roller. Significant knot around back of shoulder (he gestures to posterior capsule). He has some back soreness and wants to review core ex's. PT-OP-J Posture/Palpation/Skin Start: 08/16/23 18:27 Freq: Status: Active Protocol: Document 08/22/23 16:48 [facility] (Rec: 08/22/23 18:07 [facility] [id number]) Posture Evaluation Comments Posture Comments downward rotated, abd, elevated L scap, ant in glenoid (humerus) L>R; 1st rib elevated L PT-OP-K Range of Motion Start: 08/16/23 18:27 Freq: Status: Active Protocol: Document 08/22/23 16:48 [facility] (Rec: 08/22/23 18:07 [facility] [id number]) Shoulder Goniometric Range of Motion Shoulder Left Passive Flexion 130 Abduction 110 Internal Rotation 62 Comments IR at 45 deg Right Active Flexion 154 Extension 72 Abduction 180 External Rotation at 90 degrees 86 Abduction Internal Rotation 34 Internal Rotation Behind Back (text) T5 Left Active Flexion 112 Extension 58 Abduction 123 Internal Rotation Behind Back (text) L5 Comments scap elevation w/overhead PT-OP-Q Treatments Start: 08/16/23 18:27 Freq: Status: Active Protocol: Document 09/04/23 14:16 [facility] (Rec: 09/04/23 16:48 [facility] [id number]) Therapeutic Exercises Supine Exercises foam roll Supine Exercise Name B flex Side bilateral Equipment Used full black foam roller Reps/Minutes 10 Comments cues for gentle, pain-free range only and PPT bug Supine Exercise Name 1. TrA w/ PPT & breathwork 2. w/ deadbug 3. BKFO Side bilateral Equipment Used self-monitoring for TrA Reps/Minutes 20 Comments max cues for spine neutral throughout Manual Therapy Treatment Soft Tissue Mobilization superior Body Location L UT, LS, posterior deltoid Mobilization Type Instrument Assisted,Rolling, Sustained Pressure,Trigger Point Release Intensity/Depth Moderate Body Position Hooklying Comments w/flex and breathwork -I/s pt in self-STM to L UT w/ tennis ball. pec Body Location L major/minor Mobilization Type Cross-Friction,Rolling, Sustained Pressure Intensity/Depth Moderate Body Position Hooklying Comments w/flex and breathwork. Manual Techniques PROM Type flex/abd Body Location LUE Body Position Hooklying Comments improved pain-free range w/ tennis ball under L lateral border of scapula. Self-Care/Home Management Treatment Education Other Education -I/s pt in self-STM w/ tennis ball. -Reviewed appropriate TrA activation w/ PPT and breatwork using self- monitoring. -Significant time spent discussing w/ pt importance of increasing hold time w/ stretch to one minute and emphasizing breathwork to increase pain-free ROM. Review of importance of scapular setting w/ HEP and not breathholding to push through ex's/stretches. PT-OP-T Assessment and Plan Start: 08/16/23 18:27 Freq: Status: Active Protocol: Document 09/04/23 14:16 [facility] (Rec: 09/04/23 16:48 [facility] [id number]) Physical Therapy Assessment Goals ROM Short Term Goal (STG) Pt will have full AROM in all planes except ER (d/t protocol ) w/o pain STG Duration 10/08 Apartment Property Manager Goal (LTG) Pt will have full ER at side and 90/90 ER to allow full return to activity w/o pain LTG Duration 11/13 strength Impairment n/t d/t protocol Short Term Goal (STG) pt will be indep w/HEP w/o cues needed STG Duration 10/08/23 Skilled Nursing Goal (LTG) pt will score at least 4+/5 on all MMT in all planes L shoulder to allow return to LTG Duration 6 activity Skilled Nursing Goal (LTG) Pt will be able to return to gym workout, hiking w/a backpack, bike and kaying w/o inc pain LTG Duration 11/14/23 Quick dash Impairment 54.5 Short Term Goal (STG) Pt will improve quick dash score to no higher than 34 to show improved functional ability. STG Duration 10/08 Skilled Nursing Goal (LTG) Pt will improve quick dash score to no higher than 7 to show improved functional ability. LTG Duration 11/14/23 Assessment Summary Assessment Treatment focus on HEP review, PROM for functional mobility, core ex's and emphasis on pain-free ROM. I/s pt in self- STM w/ tennis ball. Reviewed appropriate TrA activation w/ PPT and breatwork using self- monitoring; pt encouraged to reset after each rep up to ten reps at a time for supine marching and BKFO rather than to go to fatigue as he reports he did over the weekend, likely contributing to reported back soreness as pt is challenged to maintain PPT w/ breathwork. Significant time spent discussing w/ pt importance of increasing hold time w/ stretch to one minute and emphasizing breathwork to increase pain-free ROM. Review of importance of scapular setting w/ HEP and not breathholding to push through ex's/stretches. Physical Therapy Plan Frequency and Duration Frequency of Treatment 1-2x/wk Duration of treatment (weeks) 12 Plan of Care Start Date 08/22/23 Plan of Care End Date 11/14/23 Therapeutic Interventions Therapeutic Interventions Gait Training,Home Exercise Program,Joint Mobilizations, Manual Therapy,Neuromuscular Re-education,Patient/Caregiver Education,Self-Care/Home Management,Soft Tissue Mobilization,Taping, Therapeutic Activities, Therapeutic Exercises Modalities Cold Pack/Ice Massage,Electric Stimulation,Hot Packs, Infrared Therapy,Ultrasound Next Visit Focus/Plan Next Note Type Treatment Note Next Visit Plan no ER past neutral; no resisted IR core exercises w/UE use but no WB on shoulder, go over exercises from pt website [email or web address] for form Gentle STM & work on gentle jt mobs for mobility (AC, GH, SC , thoracic, ribs, scap
--- NOTE | 2023-09-04 17:03 | PT.OTN ---
Current Diagnoses Presence of left artificial shoulder joint (09/04/23) Physical Therapy Treatment Note PT-OP-A Visit Information Start: 08/16/23 18:27 Freq: Status: Active Protocol: Document 09/04/23 14:16 NBM (Rec: 09/04/23 16:48 [facility] [id number]) Out-Patient Physical Therapy Visit Information Visit Information Visit Type Treatment Note Visit Start Time 15:18 Visit Stop Time 16:15 Visit Number 4 Number of ECOMMER[employer] MERCHANDISING MANAGER Visits 1 PT-OP-B Current Condition Start: 08/16/23 18:27 Freq: Status: Active Protocol: Document 08/22/23 16:48 [facility] (Rec: 08/22/23 18:07 [facility] [id number]) Current Condition History of Current Condition Onset Date 7 weeks Current Complaints ream and run TSA L History of Current Condition Pt reports ream and run TSA 7 weeks ago. Pt saw the doctor 2 days ago and is happy w/ recovery. Next follow up in 6 weeks. Pt reports no stretching into ER and no IR against resistance. He has herniated disc in his back that he has to be mindful of and has to have a really strong core. Pt reports shoulder just wore out. Pt is left handed Pt protocol: [email or web address]. html Treatment Goals Patient/Caregiver Goals Be able to do push ups, pull ups, planks, wt lifting, kayaking, bike, hike ( backpacking) PT-OP-C Subjective Start: 08/16/23 18:27 Freq: Status: Active Protocol: Document 09/04/23 14:16 NBM (Rec: 09/04/23 16:48 [facility] [id number]) OP-PT Subjective Patient Comments Patient Comments Froilan brings personal theracane and reports effective for working on trigger points, and is awaiting full foam roller. Significant knot around back of shoulder (he gestures to posterior capsule). He has some back soreness and wants to review core ex's. PT-OP-J Posture/Palpation/Skin Start: 08/16/23 18:27 Freq: Status: Active Protocol: Document 08/22/23 16:48 [facility] (Rec: 08/22/23 18:07 [facility] [id number]) Posture Evaluation Comments Posture Comments downward rotated, abd, elevated L scap, ant in glenoid (humerus) L>R; 1st rib elevated L PT-OP-K Range of Motion Start: 08/16/23 18:27 Freq: Status: Active Protocol: Document 08/22/23 16:48 [facility] (Rec: 08/22/23 18:07 [facility] [id number]) Shoulder Goniometric Range of Motion Shoulder Left Passive Flexion 130 Abduction 110 Internal Rotation 62 Comments IR at 45 deg Right Active Flexion 154 Extension 72 Abduction 180 External Rotation at 90 degrees 86 Abduction Internal Rotation 34 Internal Rotation Behind Back (text) T5 Left Active Flexion 112 Extension 58 Abduction 123 Internal Rotation Behind Back (text) L5 Comments scap elevation w/overhead PT-OP-Q Treatments Start: 08/16/23 18:27 Freq: Status: Active Protocol: Document 09/04/23 14:16 [facility] (Rec: 09/04/23 16:48 [facility] [id number]) Therapeutic Exercises Supine Exercises foam roll Supine Exercise Name B flex Side bilateral Equipment Used full black foam roller Reps/Minutes 10 Comments cues for gentle, pain-free range only and PPT bug Supine Exercise Name 1. TrA w/ PPT & breathwork 2. w/ deadbug 3. BKFO Side bilateral Equipment Used self-monitoring for TrA Reps/Minutes 20 Comments max cues for spine neutral throughout Manual Therapy Treatment Soft Tissue Mobilization superior Body Location L UT, LS, posterior deltoid Mobilization Type Instrument Assisted,Rolling, Sustained Pressure,Trigger Point Release Intensity/Depth Moderate Body Position Hooklying Comments w/flex and breathwork -I/s pt in self-STM to L UT w/ tennis ball. pec Body Location L major/minor Mobilization Type Cross-Friction,Rolling, Sustained Pressure Intensity/Depth Moderate Body Position Hooklying Comments w/flex and breathwork. Manual Techniques PROM Type flex/abd Body Location LUE Body Position Hooklying Comments improved pain-free range w/ tennis ball under L lateral border of scapula. Self-Care/Home Management Treatment Education Other Education -I/s pt in self-STM w/ tennis ball. -Reviewed appropriate TrA activation w/ PPT and breatwork using self- monitoring. -Significant time spent discussing w/ pt importance of increasing hold time w/ stretch to one minute and emphasizing breathwork to increase pain-free ROM. Review of importance of scapular setting w/ HEP and not breathholding to push through ex's/stretches. -Verbal discussion of body mechanics w/ ADLs to protect low back- Do's & Don'ts HO given. PT-OP-T Assessment and Plan Start: 08/16/23 18:27 Freq: Status: Active Protocol: Document 09/04/23 14:16 NB (Rec: 09/04/23 16:48 [facility] [id number]) Physical Therapy Assessment Goals ROM Short Term Goal (STG) Pt will have full AROM in all planes except ER (d/t protocol ) w/o pain STG Duration 10/08 Senior Living Goal (LTG) Pt will have full ER at side and 90/90 ER to allow full return to activity w/o pain LTG Duration 11/13 strength Impairment n/t d/t protocol Short Term Goal (STG) pt will be indep w/HEP w/o cues needed STG Duration 10/08/23 Senior Living Goal (LTG) pt will score at least 4+/5 on all MMT in all planes L shoulder to allow return to LTG Duration 11/13 activity Electrical Maintenance Man Goal (LTG) Pt will be able to return to gym workout, hiking w/a backpack, bike and kaying w/o inc pain LTG Duration 11/14/23 Quick dash Impairment 54.5 Short Term Goal (STG) Pt will improve quick dash score to no higher than 34 to show improved functional ability. STG Duration 10/08 Senior Living Goal (LTG) Pt will improve quick dash score to no higher than 7 to show improved functional ability. LTG Duration 11/14/23 Assessment Summary Assessment Treatment focus on HEP review, PROM for functional mobility, core ex's and emphasis on pain-free ROM. I/s pt in self- STM w/ tennis ball. Reviewed appropriate TrA activation w/ PPT and breatwork using self- monitoring; pt encouraged to reset after each rep up to ten reps at a time for supine marching and BKFO rather than to go to fatigue as he reports he did over the weekend, likely contributing to reported back soreness as pt is challenged to maintain PPT w/ breathing. Significant time spent discussing w/ pt importance of increasing hold time w/ stretch to one minute and emphasizing breathwork to increase pain-free ROM. Review of importance of scapular setting w/ HEP and not breathholding to push through ex's/stretches. Verbal discussion of body mechanics w / ADLs to protect low back; pt dicscouraged from using weightbelt with bending/ lifting activities at this time - Do's & Don'ts HO given. Physical Therapy Plan Frequency and Duration Frequency of Treatment 1-2x/wk Duration of treatment (weeks) 12 Plan of Care Start Date 08/22/23 Plan of Care End Date 11/14/23 Therapeutic Interventions Therapeutic Interventions Gait Training,Home Exercise Program,Joint Mobilizations, Manual Therapy,Neuromuscular Re-education,Patient/Caregiver Education,Self-Care/Home Management,Soft Tissue Mobilization,Taping, Therapeutic Activities, Therapeutic Exercises Modalities Cold Pack/Ice Massage,Electric Stimulation,Hot Packs, Infrared Therapy,Ultrasound Next Visit Focus/Plan Next Note Type Treatment Note Next Visit Plan no ER past neutral; no resisted IR core exercises w/UE use but no WB on shoulder, go over exercises from pt website [email or web address] for form Gentle STM & work on gentle jt mobs for mobility (AC, GH, SC , thoracic, ribs, scap
--- NOTE | 2023-09-04 17:05 | PT.OTN ---
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 Pt saw the doctor 2 days ago and is happy w/ recovery. Next follow up in 6 weeks. Pt reports no stretching into ER and no IR against resistance. He has herniated disc in his back that he has to be mindful of and has to have a really strong core. Pt reports shoulder just wore out. Pt is left handed Pt protocol: Https// [email or web address]-[email or web address]. html Treatment Goals Patient/Caregiver Goals Be able to do push ups, pull ups, planks, wt lifting, kayaking, bike, hike ( backpacking) PT-OP-C Subjective Start: 08/16/23 18:27 Freq: Status: Active Protocol: Document 09/04/23 14:16 NBM (Rec: 09/04/23 16:48 [facility] [id number]) OP-PT Subjective Patient Comments Patient Comments Froilan brings personal theracane and reports effective for working on trigger points, and is awaiting full foam roller. Significant knot around back of shoulder (he gestures to posterior capsule). He has some back soreness and wants to review core ex's. PT-OP-J Posture/Palpation/Skin Start: 08/16/23 18:27 Freq: Status: Active Protocol: Document 08/22/23 16:48 [facility] (Rec: 08/22/23 18:07 [facility] [id number]) Posture Evaluation Comments Posture Comments downward rotated, abd, elevated L scap, ant in glenoid (humerus) L>R; 1st rib elevated L PT-OP-K Range of Motion Start: 08/16/23 18:27 Freq: Status: Active Protocol: Document 08/22/23 16:48 [facility] (Rec: 08/22/23 18:07 [facility] [id number]) Shoulder Goniometric Range of Motion Shoulder Left Passive Flexion 130 Abduction 110 Internal Rotation 62 Comments IR at 45 deg Right Active Flexion 154 Extension 72 Abduction 180 External Rotation at 90 degrees 86 Abduction Internal Rotation 34 Internal Rotation Behind Back (text) T5 Left Active Flexion 112 Extension 58 Abduction 123 Internal Rotation Behind Back (text) L5 Comments scap elevation w/overhead PT-OP-Q Treatments Start: 08/16/23 18:27 Freq: Status: Active Protocol: Document 09/04/23 14:16 [facility] (Rec: 09/04/23 16:48 [facility] [id number]) Therapeutic Exercises Supine Exercises foam roll Supine Exercise Name B flex Side bilateral Equipment Used full black foam roller Reps/Minutes 10 Comments cues for gentle, pain-free range only and PPT bug Supine Exercise Name 1. TrA w/ PPT & breathwork 2. w/ deadbug 3. BKFO Side bilateral Equipment Used self-monitoring for TrA Reps/Minutes 20 Comments max cues for spine neutral throughout Sitting Exercises Pulleys Sitting Exercise Name flex Side left Resistance AAROM Equipment Used seated, mirror Comments HEP review; visual cues for L UT overactivation Manual Therapy Treatment Soft Tissue Mobilization superior Body Location L UT, LS, posterior deltoid Mobilization Type Instrument Assisted,Rolling, Sustained Pressure,Trigger Point Release Intensity/Depth Moderate Body Position Hooklying Comments w/flex and breathwork -I/s pt in self-STM to L UT w/ tennis ball. pec Body Location L major/minor Mobilization Type Cross-Friction,Rolling, Sustained Pressure Intensity/Depth Moderate Body Position Hooklying Comments w/flex and breathwork. Manual Techniques PROM Type flex/abd Body Location LUE Body Position Hooklying Comments improved pain-free range w/ tennis ball under L lateral border of scapula. Self-Care/Home Management Treatment Education Other Education -I/s pt in self-STM w/ tennis ball. -Reviewed appropriate TrA activation w/ PPT and breatwork using self- monitoring. -Significant time spent discussing w/ pt importance of increasing hold time w/ stretch to one minute and emphasizing breathwork to increase pain-free ROM. Review of importance of scapular setting w/ HEP and not breathholding to push through ex's/stretches. -Verbal discussion of body mechanics w/ ADLs to protect low back- Do's & Don'ts HO given. PT-OP-T Assessment and Plan Start: 08/16/23 18:27 Freq: Status: Active Protocol: Document 09/04/23 14:16 [facility] (Rec: 09/04/23 16:48 [facility] [id number]) Physical Therapy Assessment Goals ROM Short Term Goal (STG) Pt will have full AROM in all planes except ER (d/t protocol ) w/o pain STG Duration 10/08 Conditioner Tender Goal (LTG) Pt will have full ER at side and 90/90 ER to allow full return to activity w/o pain LTG Duration 6 strength Impairment n/t d/t protocol Short Term Goal (STG) pt will be indep w/HEP w/o cues needed STG Duration 10/08/23 [facility] Goal (LTG) pt will score at least 4+/5 on all MMT in all planes L shoulder to allow return to LTG Duration 6/ activity [facility] Goal (LTG) Pt will be able to return to gym workout, hiking w/a backpack, bike and kaying w/o inc pain LTG Duration 11/14/23 Quick dash Impairment 54.5 Short Term Goal (STG) Pt will improve quick dash score to no higher than 34 to show improved functional ability. STG Duration 10/08 Conditioner Tender Goal (LTG) Pt will improve quick dash score to no higher than 7 to show improved functional ability. LTG Duration 11/14/23 Assessment Summary Assessment Treatment focus on HEP review, PROM for functional mobility, core ex's and emphasis on pain-free ROM. I/s pt in self- STM w/ tennis ball. Reviewed appropriate TrA activation w/ PPT and breatwork using self- monitoring; pt encouraged to reset after each rep up to ten reps at a time for supine marching and BKFO rather than to go to fatigue as he reports he did over the weekend, likely contributing to reported back soreness as pt is challenged to maintain PPT w/ breathing. Significant time spent discussing w/ pt importance of increasing hold time w/ stretch to one minute and emphasizing breathwork to increase pain-free ROM. Review of importance of scapular setting w/ HEP and not breathholding to push through ex's/stretches. Verbal discussion of body mechanics w / ADLs to protect low back; pt dicscouraged from using weightbelt with bending/ lifting activities at this time - Do's & Don'ts HO given. Physical Therapy Plan Frequency and Duration Frequency of Treatment 1-2x/wk Duration of treatment (weeks) 12 Plan of Care Start Date 08/22/23 Plan of Care End Date 11/14/23 Therapeutic Interventions Therapeutic Interventions Gait Training,Home Exercise Program,Joint Mobilizations, Manual Therapy,Neuromuscular Re-education,Patient/Caregiver Education,Self-Care/Home Management,Soft Tissue Mobilization,Taping, Therapeutic Activities, Therapeutic Exercises Modalities Cold Pack/Ice Massage,Electric Stimulation,Hot Packs, Infrared Therapy,Ultrasound Next Visit Focus/Plan Next Note Type Treatment Note Next Visit Plan no ER past neutral; no resisted IR core exercises w/UE use but no WB on shoulder, go over exercises from pt website [email or web address]- [email or web address] for form Gentle STM & work on gentle jt mobs for mobility (AC, GH, SC , thoracic, ribs, scap
--- NOTE | 2023-09-12 18:08 | PT.OTN ---
Current Diagnoses Presence of left artificial shoulder joint (09/12/23) Physical Therapy Treatment Note PT-OP-A Visit Information Start: 08/16/23 18:27 Freq: Status: Active Protocol: Document 09/12/23 15:18 [facility] (Rec: 09/12/23 18:08 [facility] [id number]) Out-Patient Physical Therapy Visit Information Visit Information Visit Type Treatment Note Visit Start Time 15:19 Visit Stop Time 16:04 Visit Number 5 Number of MANAGER LEARNING Visits 0 PT-OP-B Current Condition Start: 08/16/23 18:27 Freq: Status: Active Protocol: Document 08/22/23 16:48 [facility] (Rec: 08/22/23 18:07 [facility] [id number]) Current Condition History of Current Condition Onset Date 7 weeks Current Complaints ream and run TSA L History of Current Condition Pt reports ream and run TSA 7 weeks ago. Pt saw the doctor 2 days ago and is happy w/ recovery. Next follow up in 6 weeks. Pt reports no stretching into ER and no IR against resistance. He has herniated disc in his back that he has to be mindful of and has to have a really strong core. Pt reports shoulder just wore out. Pt is left handed Pt protocol: Https// [email or web address] /2011/12shoulder-[email or web address]. html Treatment Goals Patient/Caregiver Goals Be able to do push ups, pull ups, planks, wt lifting, kayaking, bike, hike ( backpacking) PT-OP-C Subjective Start: 08/16/23 18:27 Freq: Status: Active Protocol: Document 09/12/23 15:18 [facility] (Rec: 09/12/23 18:08 [facility] [id number]) OP-PT Subjective Patient Comments Patient Comments Pt reports he feels like he isn't where he should be. PT-OP-J Posture/Palpation/Skin Start: 08/16/23 18:27 Freq: Status: Active Protocol: Document 08/22/23 16:48 [facility] (Rec: 08/22/23 18:07 [facility] [id number]) Posture Evaluation Comments Posture Comments downward rotated, abd, elevated L scap, ant in glenoid (humerus) L>R; 1st rib elevated L PT-OP-K Range of Motion Start: 08/16/23 18:27 Freq: Status: Active Protocol: Document 08/22/23 16:48 [facility] (Rec: 08/22/23 18:07 [facility] [id number]) Shoulder Goniometric Range of Motion Shoulder Left Passive Flexion 130 Abduction 110 Internal Rotation 62 Comments IR at 45 deg Right Active Flexion 154 Extension 72 Abduction 180 External Rotation at 90 degrees 86 Abduction Internal Rotation 34 Internal Rotation Behind Back (text) T5 Left Active Flexion 112 Extension 58 Abduction 123 Internal Rotation Behind Back (text) L5 Comments scap elevation w/overhead PT-OP-Q Treatments Start: 08/16/23 18:27 Freq: Status: Active Protocol: Document 09/12/23 15:18 [facility] (Rec: 09/12/23 18:08 [facility] [id number]) Therapeutic Exercises Supine Exercises flex Supine Exercise Name UE assist Reps/Minutes 2 min Comments cues for back down serratus punch Side bilateral Equipment Used 15# Reps/Minutes 5 x w/wt; 15x no wt Comments taken to no wt for form chest press Side bilateral Equipment Used 15# Reps/Minutes 10 Comments cues for slow and controlled bug Supine Exercise Name alt august w/cues for core Side bilateral Reps/Minutes 5 Comments shows good control today Sidelying Exercises sleeper stretch Side right Reps/Minutes 30sec Sitting Exercises stretch Sitting Exercise Name abd Side left Reps/Minutes 2 min Comments cues for scap down Standing Exercises row Side bilateral Equipment Used L4 band Reps/Minutes 10 Comments min cues for scap IR Standing Exercise Name towel behind back Side right Reps/Minutes 1 min cross body add Standing Exercise Name cues for scap down and arm // to ground Side left Reps/Minutes 30 sec Manual Therapy Treatment Soft Tissue Mobilization inf Body Location L lat, teres Mobilization Type Sustained Pressure Intensity/Depth Moderate Body Position Supine Comments w/flex scar Mobilization Type Myofascial Release,Sustained Pressure Intensity/Depth sup to mod Body Position Supine Comments w/flex pt taught how to do self work pec Body Location L major/minor Mobilization Type Rolling,Sustained Pressure Intensity/Depth Moderate Body Position Hooklying Comments w/flex Joint Mobilizations AC Joint L clavicle ant FM w/shrug Body Position Sidelying rib Joint L 1 caudal FM w/shrug Body Position Sidelying PT-OP-T Assessment and Plan Start: 08/16/23 18:27 Freq: Status: Active Protocol: Document 09/12/23 15:18 [facility] (Rec: 09/12/23 18:08 [facility] [id number]) Physical Therapy Assessment Goals ROM Short Term Goal (STG) Pt will have full AROM in all planes except ER (d/t protocol ) w/o pain STG Duration 10/08 Manager Renewable [employer] Goal (LTG) Pt will have full ER at side and 90/90 ER to allow full return to activity w/o pain LTG Duration 11/13 strength Impairment n/t d/t protocol Short Term Goal (STG) pt will be indep w/HEP w/o cues needed STG Duration 10/08/23 [facility] Goal (LTG) pt will score at least 4+/5 on all MMT in all planes L shoulder to allow return to LTG Duration 11/13 activity Manager [employer] Goal (LTG) Pt will be able to return to gym workout, hiking w/a backpack, bike and kaying w/o inc pain LTG Duration 11/14/23 Quick dash Impairment 54.5 Short Term Goal (STG) Pt will improve quick dash score to no higher than 34 to show improved functional ability. STG Duration 10/08 Manager [employer] Goal (LTG) Pt will improve quick dash score to no higher than 7 to show improved functional ability. LTG Duration 11/14/23 Assessment Summary Assessment pt did well overall w/ exercises from physician but did need cues w/serratus punch and standing chest press for scap position along arm position during stretches. Pt had imrpoved flex w/manual and understood edu for self scar mobs. Physical Therapy Plan Frequency and Duration Frequency of Treatment 1-2x/wk Duration of treatment (weeks) 12 Plan of Care Start Date 08/22/23 Plan of Care End Date 11/14/23 Next Visit Focus/Plan Next Note Type Treatment Note Next Visit Plan no ER past neutral; no resisted IR review serratus punch, chest press strength exercises focus manually for improved scar mobility and GHJ mobility
--- NOTE | 2023-09-17 18:15 | PT.OTN ---
Current Diagnoses Presence of left artificial shoulder joint (09/17/23) Physical Therapy Treatment Note PT-OP-A Visit Information Start: 08/16/23 18:27 Freq: Status: Active Protocol: Document 09/17/23 17:46 [facility] (Rec: 09/17/23 18:15 [facility] [id number]) Out-Patient Physical Therapy Visit Information Visit Information Visit Type Treatment Note Visit Start Time 16:52 Visit Stop Time 16:37 Visit Number 6 Number of DRILLING SUPERVISOR Visits 0 PT-OP-B Current Condition Start: 08/16/23 18:27 Freq: Status: Active Protocol: Document 08/22/23 16:48 [facility] (Rec: 08/22/23 18:07 [facility] [id number]) Current Condition History of Current Condition Onset Date 7 weeks Current Complaints ream and run TSA L History of Current Condition Pt reports ream and run TSA 7 weeks ago. Pt saw the doctor 2 days ago and is happy w/ recovery. Next follow up in 6 weeks. Pt reports no stretching into ER and no IR against resistance. He has herniated disc in his back that he has to be mindful of and has to have a really strong core. Pt reports shoulder just wore out. Pt is left handed Pt protocol: [email or web address]. html Treatment Goals Patient/Caregiver Goals Be able to do push ups, pull ups, planks, wt lifting, kayaking, bike, hike ( backpacking) PT-OP-C Subjective Start: 08/16/23 18:27 Freq: Status: Active Protocol: Document 09/17/23 17:46 [facility] (Rec: 09/17/23 18:15 [facility] [id number]) OP-PT Subjective Patient Comments Patient Comments Pt reports he feels like the work on him is helping a lot. PT-OP-J Posture/Palpation/Skin Start: 08/16/23 18:27 Freq: Status: Active Protocol: Document 08/22/23 16:48 [facility] (Rec: 08/22/23 18:07 [facility] [id number]) Posture Evaluation Comments Posture Comments downward rotated, abd, elevated L scap, ant in glenoid (humerus) L>R; 1st rib elevated L PT-OP-K Range of Motion Start: 08/16/23 18:27 Freq: Status: Active Protocol: Document 08/22/23 16:48 [facility] (Rec: 08/22/23 18:07 [facility] [id number]) Shoulder Goniometric Range of Motion Shoulder Left Passive Flexion 130 Abduction 110 Internal Rotation 62 Comments IR at 45 deg Right Active Flexion 154 Extension 72 Abduction 180 External Rotation at 90 degrees 86 Abduction Internal Rotation 34 Internal Rotation Behind Back (text) T5 Left Active Flexion 112 Extension 58 Abduction 123 Internal Rotation Behind Back (text) L5 Comments scap elevation w/overhead PT-OP-Q Treatments Start: 08/16/23 18:27 Freq: Status: Active Protocol: Document 09/17/23 17:46 [facility] (Rec: 09/17/23 18:15 [facility] [id number]) Therapeutic Exercises Supine Exercises serratus punch Side bilateral Equipment Used 10# Reps/Minutes 10 Comments improved form today Standing Exercises chest press Side bilateral Equipment Used 5# Reps/Minutes 8 Comments less cues for form Manual Therapy Treatment Soft Tissue Mobilization scar Mobilization Type Myofascial Release,Sustained Pressure Intensity/Depth sup to mod Body Position Supine Comments w/flex pt taught how to do self work Joint Mobilizations GH Joint L Comments post translation & glide, inf translation and glide, lat gapping FM AC Joint L clavicle ant FM w/shrug Body Position Sidelying PT-OP-T Assessment and Plan Start: 08/16/23 18:27 Freq: Status: Active Protocol: Document 09/17/23 17:46 [facility] (Rec: 09/17/23 18:15 [facility] [id number]) Physical Therapy Assessment Goals ROM Short Term Goal (STG) Pt will have full AROM in all planes except ER (d/t protocol ) w/o pain STG Duration 10/08 [facility] Goal (LTG) Pt will have full ER at side and 90/90 ER to allow full return to activity w/o pain LTG Duration 6/5 strength Impairment n/t d/t protocol Short Term Goal (STG) pt will be indep w/HEP w/o cues needed STG Duration 10/08/23 Usp Goal (LTG) pt will score at least 4+/5 on all MMT in all planes L shoulder to allow return to LTG Duration 6/5 activity Usp Goal (LTG) Pt will be able to return to gym workout, hiking w/a backpack, bike and kaying w/o inc pain LTG Duration 11/14/23 Quick dash Impairment 54.5 Short Term Goal (STG) Pt will improve quick dash score to no higher than 34 to show improved functional ability. STG Duration 10/08 Pharmaceutical Botanist Goal (LTG) Pt will improve quick dash score to no higher than 7 to show improved functional ability. LTG Duration 11/14/23 Assessment Summary Assessment Pt had improved mechanics w/ flex after manual and improved Hadd after manual. He also did show positive for med n tension which likely cotnributes to his pain c/o downt o elbow and wrist mostly noted during Hadd. Signficiant GH restrictions and ACJ restrictions remain Physical Therapy Plan Frequency and Duration Frequency of Treatment 1-2x/wk Duration of treatment (weeks) 12 Plan of Care Start Date 08/22/23 Plan of Care End Date 11/14/23 Next Visit Focus/Plan Next Note Type Treatment Note Next Visit Plan no ER past neutral; no resisted IR focus manually for improved scar mobility and GHJ mobility and neuro re-edu through ROM
--- NOTE | 2023-09-19 17:44 | PT.OTN ---
Current Diagnoses Presence of left artificial shoulder joint (09/19/23) Physical Therapy Treatment Note PT-OP-A Visit Information Start: 08/16/23 18:27 Freq: Status: Active Protocol: Document 09/19/23 16:05 [facility] (Rec: 09/19/23 17:44 [facility] [id number]) Out-Patient Physical Therapy Visit Information Visit Information Visit Type Treatment Note Visit Start Time 16:06 Visit Stop Time 16:46 Visit Number 7 Number of CONTRACT COORDINATOR Visits 0 PT-OP-B Current Condition Start: 08/16/23 18:27 Freq: Status: Active Protocol: Document 08/22/23 16:48 [facility] (Rec: 08/22/23 18:07 [facility] [id number]) Current Condition History of Current Condition Onset Date 7 weeks Current Complaints ream and run TSA L History of Current Condition Pt reports ream and run TSA 7 weeks ago. Pt saw the doctor 2 days ago and is happy w/ recovery. Next follow up in 6 weeks. Pt reports no stretching into ER and no IR against resistance. He has herniated disc in his back that he has to be mindful of and has to have a really strong core. Pt reports shoulder just wore out. Pt is left handed Pt protocol: [email or web address]. html Treatment Goals Patient/Caregiver Goals Be able to do push ups, pull ups, planks, wt lifting, kayaking, bike, hike ( backpacking) PT-OP-C Subjective Start: 08/16/23 18:27 Freq: Status: Active Protocol: Document 09/19/23 16:05 [facility] (Rec: 09/19/23 17:44 [facility] [id number]) OP-PT Subjective Patient Comments Patient Comments Pt reports he dec shrugs to 5Lbs and that stopped pain in neck. he did try doing slowly lowering after pully w/5lb and his range was dec overhead ater. PT-OP-J Posture/Palpation/Skin Start: 08/16/23 18:27 Freq: Status: Active Protocol: Document 08/22/23 16:48 [facility] (Rec: 08/22/23 18:07 [facility] [id number]) Posture Evaluation Comments Posture Comments downward rotated, abd, elevated L scap, ant in glenoid (humerus) L>R; 1st rib elevated L PT-OP-K Range of Motion Start: 08/16/23 18:27 Freq: Status: Active Protocol: Document 08/22/23 16:48 [facility] (Rec: 08/22/23 18:07 [facility] [id number]) Shoulder Goniometric Range of Motion Shoulder Left Passive Flexion 130 Abduction 110 Internal Rotation 62 Comments IR at 45 deg Right Active Flexion 154 Extension 72 Abduction 180 External Rotation at 90 degrees 86 Abduction Internal Rotation 34 Internal Rotation Behind Back (text) T5 Left Active Flexion 112 Extension 58 Abduction 123 Internal Rotation Behind Back (text) L5 Comments scap elevation w/overhead PT-OP-Q Treatments Start: 08/16/23 18:27 Freq: Status: Active Protocol: Document 09/19/23 16:05 [facility] (Rec: 09/19/23 17:44 [facility] [id number]) Therapeutic Exercises Sitting Exercises Pulleys Sitting Exercise Name flex w/sustained hold at end range Side left Reps/Minutes 2 min Manual Therapy Treatment Soft Tissue Mobilization inf Body Location L lat, teres Mobilization Type Sustained Pressure Intensity/Depth Moderate Body Position Supine Comments w/flex scar Mobilization Type Myofascial Release,Sustained Pressure Intensity/Depth sup to mod Body Position Supine Comments w/flex pt taught how to do self work superior Body Location L UT, LS, posterior deltoid Mobilization Type Rolling,Sustained Pressure, Trigger Point Release Intensity/Depth Moderate Body Position Hooklying Comments w/flex and breathwork pec Body Location L major/minor Mobilization Type Rolling,Sustained Pressure Intensity/Depth Moderate Body Position Hooklying Comments w/flex Joint Mobilizations thoracic Comments transverse T1-3 R FM GH Comments L post w/IR FM and inf w/flex FM AC Joint L clavicle ant FM w/flex Body Position Sidelying rib Comments L 1st caudal supine and seated w/SB 1st AP, 3-5 AP FM w/habd 2nd PA FM SC Joint L caudal FM w/flex Body Position Supine PT-OP-T Assessment and Plan Start: 08/16/23 18:27 Freq: Status: Active Protocol: Document 09/19/23 16:05 [facility] (Rec: 09/19/23 17:44 [facility] [id number]) Physical Therapy Assessment Goals ROM Short Term Goal (STG) Pt will have full AROM in all planes except ER (d/t protocol ) w/o pain STG Duration 10/08 Regional Account Director Goal (LTG) Pt will have full ER at side and 90/90 ER to allow full return to activity w/o pain LTG Duration 11/13 strength Impairment n/t d/t protocol Short Term Goal (STG) pt will be indep w/HEP w/o cues needed STG Duration 10/08/23 Regional Account Director Goal (LTG) pt will score at least 4+/5 on all MMT in all planes L shoulder to allow return to LTG Duration 11/13 activity Residential Goal (LTG) Pt will be able to return to gym workout, hiking w/a backpack, bike and kaying w/o inc pain LTG Duration 11/14/23 Quick dash Impairment 54.5 Short Term Goal (STG) Pt will improve quick dash score to no higher than 34 to show improved functional ability. STG Duration 10/08 Residential Goal (LTG) Pt will improve quick dash score to no higher than 7 to show improved functional ability. LTG Duration 11/14/23 Assessment Summary Assessment Pt had limited flex today compared to sunday and was restored w/rib and cervicothoracic work and further improvement w/further manual work. Physical Therapy Plan Frequency and Duration Frequency of Treatment 1-2x/wk Duration of treatment (weeks) 12 Plan of Care Start Date 08/22/23 Plan of Care End Date 11/14/23 Next Visit Focus/Plan Next Note Type Treatment Note Next Visit Plan no ER past neutral; no resisted IR focus manually for improved scar mobility and GHJ mobility and neuro re-edu through ROM
--- NOTE | 2023-09-25 11:09 | PT.OTN ---
Current Diagnoses Presence of left artificial shoulder joint (09/25/23) Physical Therapy Treatment Note PT-OP-A Visit Information Start: 08/16/23 18:27 Freq: Status: Active Protocol: Document 09/25/23 11:05 [facility] (Rec: 09/25/23 11:09 [facility] [id number]) Out-Patient Physical Therapy Visit Information Visit Information Visit Type Treatment Note Visit Start Time 08:19 Visit Stop Time 09:00 Visit Number 8 Number of CUSTOMER EXPERIENCE PROFESSIONAL Visits 0 Precautions Precautions no ER past neutral; no resisted IR no lat raises PT-OP-B Current Condition Start: 08/16/23 18:27 Freq: Status: Active Protocol: Document 08/22/23 16:48 [facility] (Rec: 08/22/23 18:07 [facility] [id number]) Current Condition History of Current Condition Onset Date 7 weeks Current Complaints ream and run TSA L History of Current Condition Pt reports ream and run TSA 7 weeks ago. Pt saw the doctor 2 days ago and is happy w/ recovery. Next follow up in 6 weeks. Pt reports no stretching into ER and no IR against resistance. He has herniated disc in his back that he has to be mindful of and has to have a really strong core. Pt reports shoulder just wore out. Pt is left handed Pt protocol: Https// [email or web address] /[email or web address]/shoulder-[email or web address]. html Treatment Goals Patient/Caregiver Goals Be able to do push ups, pull ups, planks, wt lifting, kayaking, bike, hike ( backpacking) PT-OP-C Subjective Start: 08/16/23 18:27 Freq: Status: Active Protocol: Document 09/25/23 11:05 [facility] (Rec: 09/25/23 11:09 [facility] [id number]) OP-PT Subjective Patient Comments Patient Comments pt reports he has less pain since last session but still feels like lacking range PT-OP-J Posture/Palpation/Skin Start: 08/16/23 18:27 Freq: Status: Active Protocol: Document 08/22/23 16:48 [facility] (Rec: 08/22/23 18:07 [facility] [id number]) Posture Evaluation Comments Posture Comments downward rotated, abd, elevated L scap, ant in glenoid (humerus) L>R; 1st rib elevated L PT-OP-K Range of Motion Start: 08/16/23 18:27 Freq: Status: Active Protocol: Document 08/22/23 16:48 [facility] (Rec: 08/22/23 18:07 [facility] [id number]) Shoulder Goniometric Range of Motion Shoulder Left Passive Flexion 130 Abduction 110 Internal Rotation 62 Comments IR at 45 deg Right Active Flexion 154 Extension 72 Abduction 180 External Rotation at 90 degrees 86 Abduction Internal Rotation 34 Internal Rotation Behind Back (text) T5 Left Active Flexion 112 Extension 58 Abduction 123 Internal Rotation Behind Back (text) L5 Comments scap elevation w/overhead PT-OP-Q Treatments Start: 08/16/23 18:27 Freq: Status: Active Protocol: Document 09/25/23 11:05 [facility] (Rec: 09/25/23 11:09 [facility] [id number]) Therapeutic Exercises Sidelying Exercises sleeper stretch Sidelying Exercise Name cues for pillow support so doesn't move trunk Side right Reps/Minutes 30sec Standing Exercises flex Standing Exercise Name stretch at wall w/lift off Side bilateral Manual Therapy Treatment Soft Tissue Mobilization circumfrential Body Location L shoulder and brachium w/flex and IR Mobilization Type Myofascial Release Intensity/Depth Superficial Body Position Supine scar Mobilization Type Myofascial Release,Sustained Pressure Intensity/Depth sup to mod Body Position Supine Comments w/flex superior Body Location L UT, LS, posterior deltoid Mobilization Type Rolling,Sustained Pressure, Trigger Point Release Intensity/Depth Moderate Body Position Hooklying Comments w/flex and breathwork pec Body Location L major/minor Mobilization Type Rolling,Sustained Pressure Intensity/Depth Moderate Body Position Hooklying Comments w/flex Joint Mobilizations thoracic Comments transverse and PA seated T 6 and7 FM GH Comments L post translation L inf w/flex FM AC Joint L clavicle ant FM w/flex Body Position Sidelying rib Comments L 1st caudal seated FM, L Ext torsion rib 6 and 7 ; L SB rib 7 FM SC Joint L caudal FM w/flex Body Position Supine PT-OP-T Assessment and Plan Start: 08/16/23 18:27 Freq: Status: Active Protocol: Document 09/25/23 11:05 [facility] (Rec: 09/25/23 11:09 [facility] [id number]) Physical Therapy Assessment Goals ROM Short Term Goal (STG) Pt will have full AROM in all planes except ER (d/t protocol ) w/o pain STG Duration 10/08 Group Home Goal (LTG) Pt will have full ER at side and 90/90 ER to allow full return to activity w/o pain LTG Duration 11/13 strength Impairment n/t d/t protocol Short Term Goal (STG) pt will be indep w/HEP w/o cues needed STG Duration 10/08/23 Group Home Goal (LTG) pt will score at least 4+/5 on all MMT in all planes L shoulder to allow return to LTG Duration 11/13 activity Group Home Goal (LTG) Pt will be able to return to gym workout, hiking w/a backpack, bike and kaying w/o inc pain LTG Duration 11/14/23 Quick dash Impairment 54.5 Short Term Goal (STG) Pt will improve quick dash score to no higher than 34 to show improved functional ability. STG Duration 10/08 Stock Checkerer Goal (LTG) Pt will improve quick dash score to no higher than 7 to show improved functional ability. LTG Duration 11/14/23 Assessment Summary Assessment pt cont to improve w/mobility but does cont to c/o pain at post and lat shoulder w/end range motion (flex and Hadd). He is still lacking end range flex motion at this time. Physical Therapy Plan Frequency and Duration Frequency of Treatment 1-2x/wk Duration of treatment (weeks) 12 Plan of Care Start Date 08/22/23 Plan of Care End Date 11/14/23 Next Visit Focus/Plan Next Note Type Treatment Note Next Visit Plan no ER past neutral; no resisted IR focus manually for improved scar mobility and GHJ mobility and neuro re-edu through ROM
--- NOTE | 2023-09-27 16:21 | PT.OTN ---
Current Diagnoses Presence of left artificial shoulder joint (09/27/23) Physical Therapy Treatment Note PT-OP-A Visit Information Start: 08/16/23 18:27 Freq: Status: Active Protocol: Document 09/27/23 14:17 [facility] (Rec: 09/27/23 16:20 [facility] [id number]) Out-Patient Physical Therapy Visit Information Visit Information Visit Type Treatment Note Visit Note Access Code: [email or web address] Visit Start Time 14:33 Visit Stop Time 15:16 Visit Number 9 Number of PATIENT SERVICE REPRESENTATIVE Visits 1 Precautions Precautions no ER past neutral; no resisted IR no lat raises PT-OP-B Current Condition Start: 08/16/23 18:27 Freq: Status: Active Protocol: Document 08/22/23 16:48 [facility] (Rec: 08/22/23 18:07 [facility] [id number]) Current Condition History of Current Condition Onset Date 7 weeks Current Complaints ream and run TSA L History of Current Condition Pt reports ream and run TSA 7 weeks ago. Pt saw the doctor 2 days ago and is happy w/ recovery. Next follow up in 6 weeks. Pt reports no stretching into ER and no IR against resistance. He has herniated disc in his back that he has to be mindful of and has to have a really strong core. Pt reports shoulder just wore out. Pt is left handed Pt protocol: Https// [email or web address] /2011/shoulder-exercises. html Treatment Goals Patient/Caregiver Goals Be able to do push ups, pull ups, planks, wt lifting, kayaking, bike, hike ( backpacking) PT-OP-C Subjective Start: 08/16/23 18:27 Freq: Status: Active Protocol: Document 09/27/23 14:17 [facility] (Rec: 09/27/23 16:20 [facility] [id number]) OP-PT Subjective Patient Comments Patient Comments Patient reports he has more motion. Patient reports performing exercises all the time, every time he thinks of them. 140 deg AROM left shoulder flexion start of session PT-OP-J Posture/Palpation/Skin Start: 08/16/23 18:27 Freq: Status: Active Protocol: Document 08/22/23 16:48 [facility] (Rec: 08/22/23 18:07 [facility] [id number]) Posture Evaluation Comments Posture Comments downward rotated, abd, elevated L scap, ant in glenoid (humerus) L>R; 1st rib elevated L PT-OP-K Range of Motion Start: 08/16/23 18:27 Freq: Status: Active Protocol: Document 08/22/23 16:48 [facility] (Rec: 08/22/23 18:07 [facility] [id number]) Shoulder Goniometric Range of Motion Shoulder Left Passive Flexion 130 Abduction 110 Internal Rotation 62 Comments IR at 45 deg Right Active Flexion 154 Extension 72 Abduction 180 External Rotation at 90 degrees 86 Abduction Internal Rotation 34 Internal Rotation Behind Back (text) T5 Left Active Flexion 112 Extension 58 Abduction 123 Internal Rotation Behind Back (text) L5 Comments scap elevation w/overhead PT-OP-Q Treatments Start: 08/16/23 18:27 Freq: Status: Active Protocol: Document 09/27/23 14:17 [facility] (Rec: 09/27/23 16:20 [facility] [id number]) Therapeutic Exercises Supine Exercises reclined shoulder flexion Side bilateral Reps/Minutes X10 Comments Pt ed rationale of reclined shoulder flexion flex Supine Exercise Name UE assist and without assist Reps/Minutes 10 second holds X 8 Sitting Exercises seated abduction Side left Reps/Minutes X2 Comments Pt initiated with fwd trunk lean, patient advised to avoid leaning fwd flexion table slide Side left Reps/Minutes X10 Manual Therapy Treatment Soft Tissue Mobilization inf Body Location L lat, teres Mobilization Type Cross-Friction,Rolling Intensity/Depth Moderate Body Position Sidelying scar Mobilization Type Cross-Friction,Sustained Pressure Intensity/Depth sup to mod Body Position Hooklying superior Body Location L UT, LS, posterior deltoid Mobilization Type Rolling,Sustained Pressure Intensity/Depth Moderate Body Position Hooklying pec Body Location L major/minor Mobilization Type Cross-Friction,Rolling Intensity/Depth Moderate Body Position Hooklying Joint Mobilizations scapular mobilization Joint left scapula Direction adduction and depression Grade IV Body Position Sidelying Reps/Duration IV thoracic Joint T1 through T 12 Direction PA Grade III Body Position Prone Reps/Duration 6 each GH Joint L Direction AP and inf Grade IV Body Position Hooklying Reps/Duration X16 each then X5 AP with flexion AC Joint inferior Grade III Body Position Hooklying rib Direction IV Body Position Sitting Comments 1st and 2nd inferiorly SC Joint inferior Grade III Body Position Hooklying PT-OP-T Assessment and Plan Start: 08/16/23 18:27 Freq: Status: Active Protocol: Document 09/27/23 14:17 [facility] (Rec: 09/27/23 16:20 [facility] [id number]) Physical Therapy Assessment Goals ROM Short Term Goal (STG) Pt will have full AROM in all planes except ER (d/t protocol ) w/o pain STG Duration 10/08 Wood Tank Erector Goal (LTG) Pt will have full ER at side and 90/90 ER to allow full return to activity w/o pain LTG Duration 11/13 strength Impairment n/t d/t protocol Short Term Goal (STG) pt will be indep w/HEP w/o cues needed STG Duration 10/08/23 Wood Tank Erector Goal (LTG) pt will score at least 4+/5 on all MMT in all planes L shoulder to allow return to LTG Duration 6 activity Wood Tank Erector Goal (LTG) Pt will be able to return to gym workout, hiking w/a backpack, bike and kaying w/o inc pain LTG Duration 11/14/23 Quick dash Impairment 54.5 Short Term Goal (STG) Pt will improve quick dash score to no higher than 34 to show improved functional ability. STG Duration 10/08 [facility] Goal (LTG) Pt will improve quick dash score to no higher than 7 to show improved functional ability. LTG Duration 11/14/23 Assessment Summary Assessment 147 deg AROM shoulder flexion, with patient reporting no increase in pain. Physical Therapy Plan Frequency and Duration Frequency of Treatment 1-2x/wk Duration of treatment (weeks) 12 Plan of Care Start Date 08/22/23 Plan of Care End Date 11/14/23 Next Visit Focus/Plan Next Note Type Treatment Note Next Visit Plan no ER past neutral; no resisted IR focus manually for improved scar mobility and GHJ mobility and neuro re-edu through ROM
--- NOTE | 2023-10-08 17:47 | PT.OTN ---
Current Diagnoses Presence of left artificial shoulder joint (10/08/23) Physical Therapy Treatment Note PT-OP-A Visit Information Start: 08/16/23 18:27 Freq: Status: Active Protocol: Document 10/08/23 15:46 [facility] (Rec: 10/08/23 17:45 [facility] [id number]) Out-Patient Physical Therapy Visit Information Visit Information Visit Type Progress Note Visit Note 06/20 Visit Start Time 15:20 Visit Stop Time 16:05 Visit Number 10 Number of ORE MIXER Visits 0 PT-OP-B Current Condition Start: 08/16/23 18:27 Freq: Status: Active Protocol: Document 08/22/23 16:48 [facility] (Rec: 08/22/23 18:07 [facility] [id number]) Current Condition History of Current Condition Onset Date 7 weeks Current Complaints ream and run TSA L History of Current Condition Pt reports ream and run TSA 7 weeks ago. Pt saw the doctor 2 days ago and is happy w/ recovery. Next follow up in 6 weeks. Pt reports no stretching into ER and no IR against resistance. He has herniated disc in his back that he has to be mindful of and has to have a really strong core. Pt reports shoulder just wore out. Pt is left handed Pt protocol: [email or web address]. html Treatment Goals Patient/Caregiver Goals Be able to do push ups, pull ups, planks, wt lifting, kayaking, bike, hike ( backpacking) PT-OP-C Subjective Start: 08/16/23 18:27 Freq: Status: Active Protocol: Document 10/08/23 15:46 [facility] (Rec: 10/08/23 17:45 [facility] [id number]) OP-PT Subjective Patient Comments Patient Comments pt was told he had bursitits from [facility]. He was given meloxicam and to rest for 1 week. He is feeling better so far. He is cleared by surgeon for all activites w/gradual progression PT-OP-J Posture/Palpation/Skin Start: 08/16/23 18:27 Freq: Status: Active Protocol: Document 08/22/23 16:48 [facility] (Rec: 08/22/23 18:07 [facility] [id number]) Posture Evaluation Comments Posture Comments downward rotated, abd, elevated L scap, ant in glenoid (humerus) L>R; 1st rib elevated L PT-OP-K Range of Motion Start: 08/16/23 18:27 Freq: Status: Active Protocol: Document 10/08/23 15:46 [facility] (Rec: 10/08/23 17:45 [facility] [id number]) Shoulder Goniometric Range of Motion Shoulder Left Active Flexion 135 Extension 69 Abduction 142 External Rotation at 90 degrees 63 Abduction External Rotation at 0 degrees Abduction 45 Internal Rotation Behind Back (text) T10 Comments scap elevation w/overhead PT-OP-M Strength Start: 08/16/23 18:27 Freq: Status: Active Protocol: Document 10/08/23 15:46 [facility] (Rec: 10/08/23 17:45 [facility] [id number]) Shoulder Strength Shoulder Manual Muscle Testing Right Flexion 5 Normal Extension 5 Normal Abduction (C5) 5 Normal Adduction 5 Normal External Rotation 5 Normal Internal Rotation 5 Normal Horizontal Abduction 5 Normal Horizontal Adduction 5 Normal Left Flexion 4+ Good+ Extension 5 Normal Abduction (C5) 3+ Fair+ External Rotation 3+ Fair+ Internal Rotation 3+ Fair+ Horizontal Abduction 4- Good- Horizontal Adduction 4+ Good+ PT-OP-Q Treatments Start: 08/16/23 18:27 Freq: Status: Active Protocol: Document 10/08/23 15:46 [facility] (Rec: 10/08/23 17:45 [facility] [id number]) Therapeutic Exercises Supine Exercises cervical stability Supine Exercise Name chin tuck lift w/slight shoudler lift Reps/Minutes 5 min working on form Comments cues for neutral core and neck Sidelying Exercises sideplank Sidelying Exercise Name knees and forearm w/lift of only trunk but keeping hip down Side left Reps/Minutes 10 sec x6 Comments cues for scap ER Side left Equipment Used towel at side Reps/Minutes 12 Standing Exercises ER Standing Exercise Name towel at side Side left Equipment Used orange band Reps/Minutes 4 stopped d/t pain IR Standing Exercise Name towel at side Side left Equipment Used orange band Reps/Minutes 12 Other Exercises Isometrics Other Exercise Name MMT Side bilateral AROM Other Exercise Name shoulder all planes Side left quadruped Other Exercise Name 1. alt UE lift 2. alt LE lift Side bilateral Reps/Minutes 12 ea Comments mod cues for neutral spine PT-OP-T Assessment and Plan Start: 08/16/23 18:27 Freq: Status: Active Protocol: Document 10/08/23 15:46 [facility] (Rec: 10/08/23 17:45 [facility] [id number]) Physical Therapy Assessment Goals ROM Short Term Goal (STG) Pt will have full AROM in all planes except ER (d/t protocol ) w/o pain 10/07-pain end range abd and flex and IR STG Duration 10/08 Well Service Pump Equipment Operator Goal (LTG) Pt will have full ER at side and 90/90 ER to allow full return to activity w/o pain 10/07-pain w/range LTG Duration 11/13 strength Impairment n/t d/t protocol Short Term Goal (STG) pt will be indep w/HEP w/o cues needed STG Duration achieved advancing as able Alf Goal (LTG) pt will score at least 4+/5 on all MMT in all planes L shoulder to allow return to full activities 10/07-weakness to L LTG Duration 11/13 activity Alf Goal (LTG) Pt will be able to return to gym workout, hiking w/a backpack, bike and kaying w/o inc pain 10/07-slowly returning to workout as cleared by MD LTG Duration 11/14/23 Quick dash Impairment 54.5 Short Term Goal (STG) Pt will improve quick dash score to no higher than 34 to show improved functional ability. 10/07-n/t STG Duration 10/08 Well Service Pump Equipment Operator Goal (LTG) Pt will improve quick dash score to no higher than 7 to show improved functional ability. LTG Duration 11/14/23 Assessment Summary Assessment Pt is making good progress w/ PT and improving with his ROM and w/overall mobility and is now cleared by MD for all activities w/slow progression back to them. He did well with MMT, but has notable weakness especially with rotations as would be expected. Pt did well w/IR w/band but pain w/ER so switched to AROM. DId well with WB activities and starting progressing pt back to his core exercises slowly and pt understands this. Cont PT for full ROM, strength and functional mobility. Physical Therapy Plan Frequency and Duration Frequency of Treatment 1-2x/wk Duration of treatment (weeks) 12 Plan of Care Start Date 08/22/23 Plan of Care End Date 11/14/23 Therapeutic Interventions Therapeutic Interventions Gait Training,Home Exercise Program,Joint Mobilizations, Manual Therapy,Neuromuscular Re-education,Patient/Caregiver Education,Self-Care/Home Management,Soft Tissue Mobilization,Taping, Therapeutic Activities, Therapeutic Exercises Modalities Cold Pack/Ice Massage,Electric Stimulation,Hot Packs, Infrared Therapy,Ultrasound Next Visit Focus/Plan Next Note Type Treatment Note Next Visit Plan no ER past neutral; no resisted IR focus manually for improved scar mobility and GHJ mobility and neuro re-edu through ROM
--- NOTE | 2023-10-10 17:46 | PT.OTN ---
Current Diagnoses Presence of left artificial shoulder joint (10/10/23) Physical Therapy Treatment Note PT-OP-A Visit Information Start: 08/16/23 18:27 Freq: Status: Active Protocol: Document 10/10/23 16:10 [facility] (Rec: 10/10/23 17:46 [facility] [id number]) Out-Patient Physical Therapy Visit Information Visit Information Visit Type Treatment Note Visit Note 07/21 Visit Start Time 15:18 Visit Stop Time 16:00 Visit Number 11 Number of SECTION REPAIRER Visits 0 PT-OP-B Current Condition Start: 08/16/23 18:27 Freq: Status: Active Protocol: Document 08/22/23 16:48 [facility] (Rec: 08/22/23 18:07 [facility] [id number]) Current Condition History of Current Condition Onset Date 7 weeks Current Complaints ream and run TSA L History of Current Condition Pt reports ream and run TSA 7 weeks ago. Pt saw the doctor 2 days ago and is happy w/ recovery. Next follow up in 6 weeks. Pt reports no stretching into ER and no IR against resistance. He has herniated disc in his back that he has to be mindful of and has to have a really strong core. Pt reports shoulder just wore out. Pt is left handed Pt protocol: Https// [email or web address]. html Treatment Goals Patient/Caregiver Goals Be able to do push ups, pull ups, planks, wt lifting, kayaking, bike, hike ( backpacking) PT-OP-C Subjective Start: 08/16/23 18:27 Freq: Status: Active Protocol: Document 10/10/23 16:10 [facility] (Rec: 10/10/23 17:46 [facility] [id number]) OP-PT Subjective Patient Comments Patient Comments Pt reports his back and shoulder are both feeling the best they have since his surgery. Stopped meloxicam today. PT-OP-J Posture/Palpation/Skin Start: 08/16/23 18:27 Freq: Status: Active Protocol: Document 08/22/23 16:48 [facility] (Rec: 08/22/23 18:07 [facility] [id number]) Posture Evaluation Comments Posture Comments downward rotated, abd, elevated L scap, ant in glenoid (humerus) L>R; 1st rib elevated L PT-OP-K Range of Motion Start: 08/16/23 18:27 Freq: Status: Active Protocol: Document 10/08/23 15:46 [facility] (Rec: 10/08/23 17:45 [facility] [id number]) Shoulder Goniometric Range of Motion Shoulder Left Active Flexion 135 Extension 69 Abduction 142 External Rotation at 90 degrees 63 Abduction External Rotation at 0 degrees Abduction 45 Internal Rotation Behind Back (text) T10 Comments scap elevation w/overhead PT-OP-M Strength Start: 08/16/23 18:27 Freq: Status: Active Protocol: Document 10/08/23 15:46 [facility] (Rec: 10/08/23 17:45 [facility] [id number]) Shoulder Strength Shoulder Manual Muscle Testing Right Flexion 5 Normal Extension 5 Normal Abduction (C5) 5 Normal Adduction 5 Normal External Rotation 5 Normal Internal Rotation 5 Normal Horizontal Abduction 5 Normal Horizontal Adduction 5 Normal Left Flexion 4+ Good+ Extension 5 Normal Abduction (C5) 3+ Fair+ External Rotation 3+ Fair+ Internal Rotation 3+ Fair+ Horizontal Abduction 4- Good- Horizontal Adduction 4+ Good+ PT-OP-Q Treatments Start: 08/16/23 18:27 Freq: Status: Active Protocol: Document 10/10/23 16:10 [facility] (Rec: 10/10/23 17:46 [facility] [id number]) Therapeutic Exercises Supine Exercises cervical stability Supine Exercise Name chin tuck lift w/slight shoudler lift Reps/Minutes 2 min total Comments cues for neutral core and neck Sidelying Exercises sideplank Sidelying Exercise Name knees and forearm w/lift of only trunk but keeping hip down Side left Reps/Minutes 10 sec x2 Comments cues for scap Standing Exercises ER Standing Exercise Name towel at side Side left Equipment Used lvl 2 Reps/Minutes 4 IR Standing Exercise Name towel at side Side left Equipment Used Lvl 2 Reps/Minutes 12 Other Exercises quadruped Other Exercise Name 1. alt UE lift 2. alt LE lift 3. bird dog Side bilateral Reps/Minutes 1.3 2.5 3.8 Comments mod cues for neutral spine w/ bird dog Manual Therapy Treatment Soft Tissue Mobilization circumfrential Body Location L shoulder and brachium w/flex and IR Mobilization Type Myofascial Release Intensity/Depth Superficial Body Position Supine scar Mobilization Type Cross-Friction,Sustained Pressure Intensity/Depth sup to mod Body Position Hooklying Comments w/IR pec Body Location L major/minor Mobilization Type Cross-Friction,Rolling Intensity/Depth Moderate Body Position Hooklying Joint Mobilizations GH Comments lat gapping, inf glide, distraction, post glide w/IR rib Comments L 1st rib inf FM PT-OP-T Assessment and Plan Start: 08/16/23 18:27 Freq: Status: Active Protocol: Document 10/10/23 16:10 [facility] (Rec: 10/10/23 17:46 [facility] [id number]) Physical Therapy Assessment Goals ROM Short Term Goal (STG) Pt will have full AROM in all planes except ER (d/t protocol ) w/o pain 10/07-pain end range abd and flex and IR STG Duration 10/08 Fdc Goal (LTG) Pt will have full ER at side and 90/90 ER to allow full return to activity w/o pain 10/07-pain w/range LTG Duration 11/13 strength Impairment n/t d/t protocol Short Term Goal (STG) pt will be indep w/HEP w/o cues needed STG Duration achieved advancing as able Medical Social Worker Goal (LTG) pt will score at least 4+/5 on all MMT in all planes L shoulder to allow return to full activities 10/07-weakness to L LTG Duration 11/13 activity Fdc Goal (LTG) Pt will be able to return to gym workout, hiking w/a backpack, bike and kaying w/o inc pain 10/07-slowly returning to workout as cleared by MD LTG Duration 11/14/23 Quick dash Impairment 54.5 Short Term Goal (STG) Pt will improve quick dash score to no higher than 34 to show improved functional ability. 10/07-n/t STG Duration 10/08 Medical Social Worker Goal (LTG) Pt will improve quick dash score to no higher than 7 to show improved functional ability. LTG Duration 11/14/23 Assessment Summary Assessment Pt is demonstrating improved overall range today w/IR behind back improving by a couple inches. DId well with IR/ER resistance w/min cues today. Physical Therapy Plan Frequency and Duration Frequency of Treatment 1-2x/wk Duration of treatment (weeks) 12 Plan of Care Start Date 08/22/23 Plan of Care End Date 11/14/23 Next Visit Focus/Plan Next Note Type Treatment Note Next Visit Plan full ROM and strengthening focus manually for improved scar mobility and GHJ mobility and neuro re-edu through ROM
--- NOTE | 2023-10-22 16:08 | PT.OTN ---
Current Diagnoses Presence of left artificial shoulder joint (10/22/23) Physical Therapy Treatment Note PT-OP-A Visit Information Start: 08/16/23 18:27 Freq: Status: Active Protocol: Document 10/22/23 15:18 [facility] (Rec: 10/22/23 16:08 [facility] [id number]) Out-Patient Physical Therapy Visit Information Visit Information Visit Type Treatment Note Visit Note 08/18 Visit Start Time 15:19 Visit Stop Time 16:00 Visit Number 12 Number of [place] Visits 0 PT-OP-B Current Condition Start: 08/16/23 18:27 Freq: Status: Active Protocol: Document 08/22/23 16:48 [facility] (Rec: 08/22/23 18:07 [facility] [id number]) Current Condition History of Current Condition Onset Date 7 weeks Current Complaints ream and run TSA L History of Current Condition Pt reports ream and run TSA 7 weeks ago. Pt saw the doctor 2 days ago and is happy w/ recovery. Next follow up in 6 weeks. Pt reports no stretching into ER and no IR against resistance. He has herniated disc in his back that he has to be mindful of and has to have a really strong core. Pt reports shoulder just wore out. Pt is left handed Pt protocol: [email or web address]. html Treatment Goals Patient/Caregiver Goals Be able to do push ups, pull ups, planks, wt lifting, kayaking, bike, hike ( backpacking) PT-OP-C Subjective Start: 08/16/23 18:27 Freq: Status: Active Protocol: Document 10/22/23 15:18 [facility] (Rec: 10/22/23 16:08 [facility] [id number]) OP-PT Subjective Patient Comments Patient Comments Pt reports shoulder is better and feels like ROM is better PT-OP-J Posture/Palpation/Skin Start: 08/16/23 18:27 Freq: Status: Active Protocol: Document 08/22/23 16:48 [facility] (Rec: 08/22/23 18:07 [facility] [id number]) Posture Evaluation Comments Posture Comments downward rotated, abd, elevated L scap, ant in glenoid (humerus) L>R; 1st rib elevated L PT-OP-K Range of Motion Start: 03/07/24 18:27 Freq: Status: Active Protocol: Document 10/08/23 15:46 [facility] (Rec: 10/08/23 17:45 [facility] [id number]) Shoulder Goniometric Range of Motion Shoulder Left Active Flexion 135 Extension 69 Abduction 142 External Rotation at 90 degrees 63 Abduction External Rotation at 0 degrees Abduction 45 Internal Rotation Behind Back (text) T10 Comments scap elevation w/overhead PT-OP-M Strength Start: 08/16/23 18:27 Freq: Status: Active Protocol: Document 10/08/23 15:46 [facility] (Rec: 10/08/23 17:45 [facility] [id number]) Shoulder Strength Shoulder Manual Muscle Testing Right Flexion 5 Normal Extension 5 Normal Abduction (C5) 5 Normal Adduction 5 Normal External Rotation 5 Normal Internal Rotation 5 Normal Horizontal Abduction 5 Normal Horizontal Adduction 5 Normal Left Flexion 4+ Good+ Extension 5 Normal Abduction (C5) 3+ Fair+ External Rotation 3+ Fair+ Internal Rotation 3+ Fair+ Horizontal Abduction 4- Good- Horizontal Adduction 4+ Good+ PT-OP-Q Treatments Start: 08/16/23 18:27 Freq: Status: Active Protocol: Document 10/22/23 15:18 [facility] (Rec: 10/22/23 16:08 [facility] [id number]) Therapeutic Exercises Prone Exercises push up Prone Exercise Name knees Side bilateral Reps/Minutes partial range to full progress to 10 plank Prone Exercise Name on bosu w/around the world Side bilateral Reps/Minutes 6 ea direction Sidelying Exercises sideplank Sidelying Exercise Name knees and forearm w/partial lift Side left Reps/Minutes 12 Comments cues for scap Sitting Exercises IR Sitting Exercise Name 90/90 Side left Equipment Used lvl 1 Reps/Minutes 15 ER Sitting Exercise Name 90/90 Side left Reps/Minutes 1. 12 no wt 2. 15 2# Manual Therapy Treatment Soft Tissue Mobilization lat Body Location L delt Comments w/IR circumfrential Body Location L shoulder and brachium w/flex and IR Mobilization Type Myofascial Release Intensity/Depth Superficial Body Position Supine scar Mobilization Type Cross-Friction,Sustained Pressure Intensity/Depth sup to mod Body Position Hooklying Comments w/IR pec Body Location L major/minor Mobilization Type Cross-Friction,Rolling Intensity/Depth Moderate Body Position Hooklying Joint Mobilizations GH Comments L post and Inf glide w/IR progressing towards 90 deg abd PT-OP-T Assessment and Plan Start: 08/16/23 18:27 Freq: Status: Active Protocol: Document 10/22/23 15:18 [facility] (Rec: 10/22/23 16:08 [facility] [id number]) Physical Therapy Assessment Goals ROM Short Term Goal (STG) Pt will have full AROM in all planes except ER (d/t protocol ) w/o pain 10/07-pain end range abd and flex and IR STG Duration 10/08 [facility]ci Goal (LTG) Pt will have full ER at side and 90/90 ER to allow full return to activity w/o pain 10/07-pain w/range LTG Duration 11/13 strength Impairment n/t d/t protocol Short Term Goal (STG) pt will be indep w/HEP w/o cues needed STG Duration achieved advancing as able Fci Goal (LTG) pt will score at least 4+/5 on all MMT in all planes L shoulder to allow return to full activities 10/07-weakness to L LTG Duration 11/13 activity Slate Worker Goal (LTG) Pt will be able to return to gym workout, hiking w/a backpack, bike and kaying w/o inc pain 10/07-slowly returning to workout as cleared by MD LTG Duration 11/14/23 Quick dash Impairment 54.5 Short Term Goal (STG) Pt will improve quick dash score to no higher than 34 to show improved functional ability. 10/07-n/t STG Duration 10/08 Slate Worker Goal (LTG) Pt will improve quick dash score to no higher than 7 to show improved functional ability. LTG Duration 11/14/23 Assessment Summary Assessment Improved tolerance w/exercises andimproved ability to IR after manual. Encouraged to hold a little longer w/ motorcycle Physical Therapy Plan Frequency and Duration Frequency of Treatment 1-2x/wk Duration of treatment (weeks) 12 Plan of Care Start Date 08/22/23 Plan of Care End Date 11/14/23 Next Visit Focus/Plan Next Note Type Treatment Note Next Visit Plan full ROM and strengthening focus manually for improved scar mobility and GHJ mobility and neuro re-edu through ROM
--- NOTE | 2023-10-29 17:35 | PT.OTN ---
Current Diagnoses Presence of left artificial shoulder joint (10/29/23) Physical Therapy Treatment Note PT-OP-A Visit Information Start: 08/16/23 18:27 Freq: Status: Active Protocol: Document 10/29/23 17:23 [facility] (Rec: 10/29/23 17:29 [facility] [id number]) Out-Patient Physical Therapy Visit Information Visit Information Visit Type Treatment Note Visit Note 09/18 Visit Start Time 15:20 Visit Stop Time 16:00 Visit Number 13 Number of SOIL FERTILITY EXTENSION SPECIALIST Visits 0 PT-OP-B Current Condition Start: 08/16/23 18:27 Freq: Status: Active Protocol: Document 08/22/23 16:48 [facility] (Rec: 08/22/23 18:07 [facility] [id number]) Current Condition History of Current Condition Onset Date 7 weeks Current Complaints ream and run TSA L History of Current Condition Pt reports ream and run TSA 7 weeks ago. Pt saw the doctor 2 days ago and is happy w/ recovery. Next follow up in 6 weeks. Pt reports no stretching into ER and no IR against resistance. He has herniated disc in his back that he has to be mindful of and has to have a really strong core. Pt reports shoulder just wore out. Pt is left handed Pt protocol: Https// [email or web address]. html Treatment Goals Patient/Caregiver Goals Be able to do push ups, pull ups, planks, wt lifting, kayaking, bike, hike ( backpacking) PT-OP-C Subjective Start: 08/16/23 18:27 Freq: Status: Active Protocol: Document 10/29/23 17:23 [facility] (Rec: 10/29/23 17:29 [facility] [id number]) OP-PT Subjective Patient Comments Patient Comments Pt reports IR is better but still limited PT-OP-J Posture/Palpation/Skin Start: 08/16/23 18:27 Freq: Status: Active Protocol: Document 08/22/23 16:48 [facility] (Rec: 08/22/23 18:07 [facility] [id number]) Posture Evaluation Comments Posture Comments downward rotated, abd, elevated L scap, ant in glenoid (humerus) L>R; 1st rib elevated L PT-OP-K Range of Motion Start: 08/16/23 18:27 Freq: Status: Active Protocol: Document 10/08/23 15:46 [facility] (Rec: 10/08/23 17:45 [facility] [id number]) Shoulder Goniometric Range of Motion Shoulder Left Active Flexion 135 Extension 69 Abduction 142 External Rotation at 90 degrees 63 Abduction External Rotation at 0 degrees Abduction 45 Internal Rotation Behind Back (text) T10 Comments scap elevation w/overhead PT-OP-M Strength Start: 08/16/23 18:27 Freq: Status: Active Protocol: Document 10/08/23 15:46 [facility] (Rec: 10/08/23 17:45 [facility] [id number]) Shoulder Strength Shoulder Manual Muscle Testing Right Flexion 5 Normal Extension 5 Normal Abduction (C5) 5 Normal Adduction 5 Normal External Rotation 5 Normal Internal Rotation 5 Normal Horizontal Abduction 5 Normal Horizontal Adduction 5 Normal Left Flexion 4+ Good+ Extension 5 Normal Abduction (C5) 3+ Fair+ External Rotation 3+ Fair+ Internal Rotation 3+ Fair+ Horizontal Abduction 4- Good- Horizontal Adduction 4+ Good+ PT-OP-Q Treatments Start: 08/16/23 18:27 Freq: Status: Active Protocol: Document 10/29/23 17:23 [facility] (Rec: 10/29/23 17:29 [facility] [id number]) Therapeutic Exercises Standing Exercises IR Standing Exercise Name lift behind back Side left Reps/Minutes 8 attempts Manual Therapy Treatment Soft Tissue Mobilization circumfrential Body Location L shoulder and brachium w/ IR Mobilization Type Myofascial Release Intensity/Depth Superficial Body Position Supine scar Mobilization Type Cross-Friction,Sustained Pressure Intensity/Depth sup to mod Body Position Hooklying Comments w/IR Joint Mobilizations thoracic Comments transverse glide R T2-3 FM w/ IR behind back GH Comments lat gap w/post glide w/IR behind back supine FM; inf glide FM w/abd AC Comments clavicle ant FM w/IR PT-OP-T Assessment and Plan Start: 08/16/23 18:27 Freq: Status: Active Protocol: Document 10/29/23 17:23 [facility] (Rec: 10/29/23 17:29 [facility] [id number]) Physical Therapy Assessment Goals ROM Short Term Goal (STG) Pt will have full AROM in all planes except ER (d/t protocol ) w/o pain 10/07-pain end range abd and flex and IR STG Duration 10/08 Assisted Goal (LTG) Pt will have full ER at side and 90/90 ER to allow full return to activity w/o pain 10/07-pain w/range LTG Duration 11/13 strength Impairment n/t d/t protocol Short Term Goal (STG) pt will be indep w/HEP w/o cues needed STG Duration achieved advancing as able Domestic Laundry Worker Goal (LTG) pt will score at least 4+/5 on all MMT in all planes L shoulder to allow return to full activities 10/07-weakness to L LTG Duration 11/13 activity Assisted Goal (LTG) Pt will be able to return to gym workout, hiking w/a backpack, bike and kaying w/o inc pain 10/07-slowly returning to workout as cleared by MD LTG Duration 11/14/23 Quick dash Impairment 54.5 Short Term Goal (STG) Pt will improve quick dash score to no higher than 34 to show improved functional ability. 10/07-n/t STG Duration 10/08 Assisted Goal (LTG) Pt will improve quick dash score to no higher than 7 to show improved functional ability. LTG Duration 11/14/23 Assessment Summary Assessment Pt did well with manual therapy with improved IR behind back w/ability to lay supine and get hand under small of back. Improved IR in standing from T7 to T6. Unable to do lift off on L but given exercise attempts for HEP. Physical Therapy Plan Frequency and Duration Frequency of Treatment 1-2x/wk Duration of treatment (weeks) 12 Plan of Care Start Date 08/22/23 Plan of Care End Date 11/14/23 Next Visit Focus/Plan Next Note Type Treatment Note Next Visit Plan full ROM and strengthening focus manually for improved scar mobility and GHJ mobility and neuro re-edu through ROM
--- NOTE | 2023-10-31 10:25 | PT.OPDS ---
Current Diagnoses Presence of left artificial shoulder joint (10/29/23) Visit Care Team Role Provider Type Jaylan Jimenez PA-C Attending Provider Non-Staff Referring Provider Specialty: Medical Address: [address] [place] [address], [place], [place], [facility] Fax: Email: Visit Number Visit Number 13 Discharge Summary PT-OP-B Current Condition Start: 08/16/23 18:27 Freq: Status: Active Protocol: Document 08/22/23 16:48 [facility] (Rec: 08/22/23 18:07 [facility] [id number]) Current Condition History of Current Condition Onset Date 7 weeks Current Complaints ream and run TSA L History of Current Condition Pt reports ream and run TSA 7 weeks ago. Pt saw the doctor 2 days ago and is happy w/ recovery. Next follow up in 6 weeks. Pt reports no stretching into ER and no IR against resistance. He has herniated disc in his back that he has to be mindful of and has to have a really strong core. Pt reports shoulder just wore out. Pt is left handed Pt protocol: Https// [email or web address].[email or web address] /2011/shoulder-exercises. html Treatment Goals Patient/Caregiver Goals Be able to do push ups, pull ups, planks, wt lifting, kayaking, bike, hike ( backpacking) PT-OP-C Subjective Start: 08/16/23 18:27 Freq: Status: Active Protocol: Document 10/29/23 17:23 [facility] (Rec: 10/29/23 17:29 [facility] [id number]) OP-PT Subjective Patient Comments Patient Comments Pt reports IR is better but still limited PT-OP-J Posture/Palpation/Skin Start: 08/16/23 18:27 Freq: Status: Active Protocol: Document 08/22/23 16:48 [facility] (Rec: 08/22/23 18:07 [facility] [id number]) Posture Evaluation Comments Posture Comments downward rotated, abd, elevated L scap, ant in glenoid (humerus) L>R; 1st rib elevated L PT-OP-K Range of Motion Start: 08/16/23 18:27 Freq: Status: Active Protocol: Document 10/08/23 15:46 [facility] (Rec: 10/08/23 17:45 [facility] [id number]) Shoulder Goniometric Range of Motion Shoulder Left Active Flexion 135 Extension 69 Abduction 142 External Rotation at 90 degrees 63 Abduction External Rotation at 0 degrees Abduction 45 Internal Rotation Behind Back (text) T10 Comments scap elevation w/overhead PT-OP-M Strength Start: 08/16/23 18:27 Freq: Status: Active Protocol: Document 10/08/23 15:46 [facility] (Rec: 10/08/23 17:45 [facility] [id number]) Shoulder Strength Shoulder Manual Muscle Testing Right Flexion 5 Normal Extension 5 Normal Abduction (C5) 5 Normal Adduction 5 Normal External Rotation 5 Normal Internal Rotation 5 Normal Horizontal Abduction 5 Normal Horizontal Adduction 5 Normal Left Flexion 4+ Good+ Extension 5 Normal Abduction (C5) 3+ Fair+ External Rotation 3+ Fair+ Internal Rotation 3+ Fair+ Horizontal Abduction 4- Good- Horizontal Adduction 4+ Good+ PT-OP-T Assessment and Plan Start: 08/16/23 18:27 Freq: Status: Active Protocol: Document 10/31/23 10:13 [facility] (Rec: 11/01/23 10:25 [facility] [id number]) Physical Therapy Assessment Goals ROM Short Term Goal (STG) Pt will have full AROM in all planes except ER (d/t protocol ) w/o pain 10/07-pain end range abd and flex and IR STG Duration tightness at end range General Labor Goal (LTG) Pt will have full ER at side and 90/90 ER to allow full return to activity w/o pain 10/07-pain w/range LTG Duration mild tightness strength Impairment dec core stability Short Term Goal (STG) pt will be indep w/HEP w/o cues needed STG Duration achieved advancing as able Group Home Goal (LTG) pt will score at least 4+/5 on all MMT in all planes L shoulder to allow return to full activities 10/07-weakness to L LTG Duration improved L activity General Labor Goal (LTG) Pt will be able to return to gym workout, hiking w/a backpack, bike and kaying w/o inc pain 10/07-slowly returning to workout as cleared by MD LTG Duration has not returned but returnign to core exercises Quick dash Impairment 54.5 Short Term Goal (STG) Pt will improve quick dash score to no higher than 34 to show improved functional ability. 10/07-n/t STG Duration nt but pt restricted partially from LB General Labor Goal (LTG) Pt will improve quick dash score to no higher than 7 to show improved functional ability. LTG Duration 11/14/23 Assessment Summary Assessment Pt is indep w/HEP and is progressing w/ROM and strength w/HEP and had much improved IR after last session. Pt starting PT for Lumbar pain as this is greater issue for him at this time. Close this case to focus on lumbar pain. He has made good progress in ROM and strength w/PT for L shoulder and has returned to more of his back workout exercises taht load shoulder w /o issue and just some modification. DC case for pt to work on LBP w/different referral Physical Therapy Plan Discharge Physical Therapy Discharge Comments close case to start LB case
== END 2023-11-07 13:37 ==
LOC: PHYS 15:15
PROVIDERS: Referring Provider Physician Assistant; Visit Provider Physician Assistant
DX: Z96.612 Presence of left artificial shoulder joint (principal)
CPT/HCPCS: 97110; 97112; 97140; 97162; 97535

== ENCOUNTER 2024-01-02 16:00 | Outpatient (RCR) | payer MEDICARE, OTHER, SELFPAY ==
--- NOTE | 2023-10-31 17:57 | PT.OIE ---
Current Diagnoses Other chronic pain (10/31/23) Low back pain, unspecified (10/31/23) Abnormal posture (10/31/23) Weakness (10/31/23) Visit Care Team Role Provider Type Brigitte Hopper PA-C Attending Provider Non-Staff Family Provider Primary Care Provider Referring Provider Specialty: Medical Address: [address] [place], [place] [address], [address] Email: Physical Therapy Initial Evaluation PT-OP-A Visit Information Start: 10/30/23 17:39 Freq: Status: Active Protocol: Document 10/31/23 15:21 [facility] (Rec: 10/31/23 18:14 [facility] [id number]) Out-Patient Physical Therapy Visit Information Visit Information Visit Type Initial Evaluation Visit Note 06/20 Visit Start Time 15:21 Visit Stop Time 16:11 Visit Number 1 Number of AGRICULTURAL ECONOMICS TEACHER Visits 0 PT-OP-B Current Condition Start: 10/30/23 17:39 Freq: Status: Active Protocol: Document 10/31/23 15:21 [facility] (Rec: 10/31/23 18:14 [facility] [id number]) Current Condition History of Current Condition Current Complaints LBP History of Current Condition Pt reports back pain started around 49 years old. He was working out and it went out on him when working out. He was wt lifting doing bench press w /ball under his back. That was the first time his back gave out on him. He couldn't get into the car. He had to lean back in the car and went to hospital. He was given morphine and tried to sit him up and he had extreme pain, so admitted him and was on meds for 2 days. Did PT at that point and it did help. Knows xrays were done and vertebrae were touching. He has a routine that helps his back ( plank and sideplanks). He always has some back pain but that helps manage it. Last year prior to shoulder replacement, did PT idd pain science work which did help. They did build up tolerance w/ activity w/flex etc and it did help. After shoulder replacement, he was limited in exercises. He is focusing on shoulder exercises now and now he cannot lay on bed on back w/o inc pain in back d/t back hurting after a few hours. Has been sleeping in recliner. Denies pain down legs typically. His toes tingle sometimes. He did a couple days ago have pain in post L thigh while doing squat jumps. Prior to surgery, he would hold wts and 18 in step ups and that helped. One of the things that really aggrevates his pain is lunges w/wt. Avoids lunges d/t this. doesn' t run anymore d/t back pain. Limit of back is 2.5 miles. hills don't seem to inc back pain more along the way. walks up the hill backwards until feels quads fatigues then goes fwd; ritiual that pops back ( LTR)-improves pain. pelvic clocks on ball ,mini sit ups over tennis ball Prior Treatments and Tests IMPRESSION: Wxev-ld-dwczblem lumbar spine DDD. Treatment Goals Patient/Caregiver Goals be able to do yard work, be able to jump, be able to sleep in bed PT-OP-C Subjective Start: 10/30/23 17:39 Freq: Status: Active Protocol: Document 10/31/23 15:21 [facility] (Rec: 10/31/23 18:14 [facility] [id number]) Patient Questionnaires Oswestry Low Back Index Oswestry Score 20/50 OP-PT Pain Assessment Location back pain Pain Location Details L>R SI Scale Used worst: 5 Frequency Constant Pain Duration hours Pain Aggravating Factors Standing,Sitting Other Pain Aggravating Factors >2.5 miles, laying supine Pain Alleviating Factors Heat Other Pain Alleviating Factors back roll in his chair, ritual that pops back PT-OP-F Manual Assessment Start: 10/30/23 17:39 Freq: Status: Active Protocol: Document 10/31/23 15:21 [facility] (Rec: 10/31/23 18:14 [facility] [id number]) Manual Assessments Soft Tissue Assessment Soft Tissue Mobility Assessment L greater trochanter sore, L QL tightness PT-OP-G Mobility & Gait Start: 10/30/23 17:39 Freq: Status: Active Protocol: Document 10/31/23 15:21 [facility] (Rec: 10/31/23 18:14 [facility] [id number]) OP Gait Assessment Comments Gait Comments dec ant dep of L pelvis w/gait PT-OP-J Posture/Palpation/Skin Start: 10/30/23 17:39 Freq: Status: Active Protocol: Document 10/31/23 15:21 [facility] (Rec: 10/31/23 18:14 [facility] [id number]) Posture Evaluation Kian Postural Classification System Kian Postural Classifications Posterior/Posterior Vertebral Compression Test 2 Lumbar Protective Mechanism Left AP 0 Lumbar Protective Mechanism Right AP 2 Lumbar Protective Mechanism Left PA 2 Lumbar Protective Mechanism Right PA 2 Comments Posture Comments R rot, L shoulder higher, L foot turned out more: L liac crest higher; equal greater troch PT-OP-K Range of Motion Start: 10/30/23 17:39 Freq: Status: Active Protocol: Document 10/31/23 15:21 [facility] (Rec: 10/31/23 18:14 [facility] [id number]) Lumbar Spine Range of Motion Lumbar Spine Active Percentage Flexion 50 Extension 70 Rotation Left 70 Rotation Right 70 Lateral Flexion Left 50 Lateral Flexion Right 75 Comments pain L w/L SB & w/flex PT-OP-L Special Tests Start: 10/30/23 17:39 Freq: Status: Active Protocol: Document 10/31/23 15:21 [facility] (Rec: 10/31/23 18:14 [facility] [id number]) Special Tests Lumbar Spine Special Tests Nilson Comments mild B iliacus tightness SLR Test Results positive L Slump Test Results positive B (L inc tension) PT-OP-M Strength Start: 10/30/23 17:39 Freq: Status: Active Protocol: Document 10/31/23 15:21 [facility] (Rec: 10/31/23 18:14 [facility] [id number]) Hip Strength Hip Manual Muscle Testing Right Flexion (L2) 4+ Good+ Extension (S1) 4+ Good+ Abduction 5 Normal Adduction 4+ Good+ External Rotation 5 Normal Internal Rotation 5 Normal Left Flexion (L2) 4- Good- Extension (S1) 4- Good- Abduction 4+ Good+ Adduction 4+ Good+ External Rotation 5 Normal Internal Rotation 5 Normal Comments dec core engagment w/LLE MMT Knee Strength Knee Manual Muscle Testing Right Flexion (S2) 5 Normal Extension (L3) 5 Normal Left Flexion (S2) 5 Normal Extension (L3) 5 Normal PT-OP-T Assessment and Plan Start: 10/30/23 17:39 Freq: Status: Active Protocol: Document 10/31/23 15:21 [facility] (Rec: 10/31/23 18:14 [facility] [id number]) Physical Therapy Assessment Rehab Potential Rehabilitation Potential Good Evaluation Complexity Number of Personal Factors/Comorbidities 3 or More Number of Body Systems Impaired 4 or More Clinical Presentation at Evaluation Evolving Impairments Impairments Activity Tolerance,Functional Activities,Functional Mobility ,Gait,Pain,Posture,ROM,Soft Tissue Mobility,Strength Goals activity Short Term Goal (STG) Pt will be able to sleep through the night in bed w/o inc pain STG Duration 12/08 Air Cargo Specialist Supervisor Goal (LTG) pt will be able to do all yard work and inc walking distance >2.5 miles w/o inc pain in back greater than 2/10 LTG Duration 01/08 DESHAWN Impairment 20/50 Short Term Goal (STG) Pt will improve DESHAWN score to no higher than 13/50 to show improved functional ability. STG Duration 12/08 Air Cargo Specialist Supervisor Goal (LTG) Pt will improve DESHAWN score to no higher than 4/50 to show improved functional ability. LTG Duration 01/08 strength Impairment dec core stability Short Term Goal (STG) Pt will be indep w/HEP for core and hip stability STG Duration 12/08 Air Cargo Specialist Supervisor Goal (LTG) Pt will have at least 4/5 LPM in all planes and 5/5 on hip MMT in order to improve stability to allow pt greater ease w/daily life LTG Duration 01/08 Assessment Summary Assessment Pt presents w/worsening of chronic back pain (L SI region ) after L shoulder partial replacement and couldn't do his normal core exercises ( planks, exercises w/hands under back, etc). he has resumed most of his core routine, but L>R SI region is still painful and pt has avoided trying yard work as this has inc pain when tried some. he is unable to sleep in bed and when has tried he reports back going out. he has core weakness most notably w/connection w/LLE. He has elevated and rot SIJ L and would benefit from skilled PT to address these deficits. Physical Therapy Plan Frequency and Duration Frequency of Treatment 1-2x/wk Duration of treatment (weeks) 10 Plan of Care Start Date 10/31/23 Plan of Care End Date 01/09/24 Therapeutic Interventions Therapeutic Interventions Balance Training,Gait Training ,Home Exercise Program,Joint Mobilizations,Manual Therapy, Patient/Caregiver Education, Self-Care/Home Management,Soft Tissue Mobilization,Taping, Therapeutic Activities, Therapeutic Exercises Modalities Cold Pack/Ice Massage,Electric Stimulation,Hot Packs, Traction- Mechanical Next Visit Focus/Plan Next Note Type Treatment Note Next Visit Plan DL isometric, review core exercises PNF manual faciliation manual to hip and innominate mobility
--- NOTE | 2023-10-31 17:57 | PT.OPPOC ---
Physical, Occupational & Speech Therapy At [facility] Current Diagnoses Other chronic pain (10/31/23) Low back pain, unspecified (10/31/23) Abnormal posture (10/31/23) Weakness (10/31/23) Visit Care Team Role Provider Type Brigitte Hopper PA-C Attending Provider Non-Staff Family Provider Primary Care Provider Referring Provider Specialty: Medical Address: [address] [place] [address], [facility] Email: Plan Of Care PT-OP-T Assessment and Plan Start: 10/30/23 17:39 Freq: Status: Active Protocol: Document 10/31/23 15:21 [facility] (Rec: 10/31/23 18:14 [facility] [id number]) Physical Therapy Assessment Rehab Potential Rehabilitation Potential Good Evaluation Complexity Number of Personal Factors/Comorbidities 3 or More Number of Body Systems Impaired 4 or More Clinical Presentation at Evaluation Evolving Impairments Impairments Activity Tolerance,Functional Activities,Functional Mobility ,Gait,Pain,Posture,ROM,Soft Tissue Mobility,Strength Goals activity Short Term Goal (STG) Pt will be able to sleep through the night in bed w/o inc pain STG Duration 12/08 Dry Curer Goal (LTG) pt will be able to do all yard work and inc walking distance >2.5 miles w/o inc pain in back greater than 2/10 LTG Duration 01/08 DESHAWN Impairment 20/50 Short Term Goal (STG) Pt will improve DESHAWN score to no higher than 13/50 to show improved functional ability. STG Duration 12/08 Dry Curer Goal (LTG) Pt will improve DESHAWN score to no higher than 4/50 to show improved functional ability. LTG Duration 01/08 strength Impairment dec core stability Short Term Goal (STG) Pt will be indep w/HEP for core and hip stability STG Duration 12/08 Mcc Goal (LTG) Pt will have at least 4/5 LPM in all planes and 5/5 on hip MMT in order to improve stability to allow pt greater ease w/daily life LTG Duration 01/08 Assessment Summary Assessment Pt presents w/worsening of chronic back pain (L SI region ) after L shoulder partial replacement and couldn't do his normal core exercises ( planks, exercises w/hands under back, etc). he has resumed most of his core routine, but L>R SI region is still painful and pt has avoided trying yard work as this has inc pain when tried some. he is unable to sleep in bed and when has tried he reports back going out. he has core weakness most notably w/connection w/LLE. He has elevated and rot SIJ L and would benefit from skilled PT to address these deficits. Physical Therapy Plan Frequency and Duration Frequency of Treatment 1-2x/wk Duration of treatment (weeks) 10 Plan of Care Start Date 10/31/23 Plan of Care End Date 01/09/24 Therapeutic Interventions Therapeutic Interventions Balance Training,Gait Training ,Home Exercise Program,Joint Mobilizations,Manual Therapy, Patient/Caregiver Education, Self-Care/Home Management,Soft Tissue Mobilization,Taping, Therapeutic Activities, Therapeutic Exercises Modalities Cold Pack/Ice Massage,Electric Stimulation,Hot Packs, Traction- Mechanical Next Visit Focus/Plan Next Note Type Treatment Note Next Visit Plan DL isometric, review core exercises PNF manual faciliation manual to hip and innominate mobility Plan of Care Dates Plan of Care Start Date 10/31/23 Plan of Care End Date 01/09/24 Electronically Signed by: Jo Johnson, PT 11/01/23 0857 If you are in agreement with this Plan of Care, please return a signed and dated copy. I have reviewed this Plan of Care and certify that the skilled therapy services above are required to meet the patient?s needs. Physician Signature Date Printed Name and Credentials Clinical Instructor Signature Printed Name and Credentials
--- NOTE | 2023-11-06 18:30 | PT.OTN ---
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 He was working out and it went out on him when working out. He was wt lifting doing bench press w /ball under his back. That was the first time his back gave out on him. He couldn't get into the car. He had to lean back in the car and went to hospital. He was given morphine and tried to sit him up and he had extreme pain, so admitted him and was on meds for 2 days. Did PT at that point and it did help. Knows xrays were done and vertebrae were touching. He has a routine that helps his back ( plank and sideplanks). He always has some back pain but that helps manage it. Last year prior to shoulder replacement, did PT idd pain science work which did help. They did build up tolerance w/ activity w/flex etc and it did help. After shoulder replacement, he was limited in exercises. He is focusing on shoulder exercises now and now he cannot lay on bed on back w/o inc pain in back d/t back hurting after a few hours. Has been sleeping in recliner. Denies pain down legs typically. His toes tingle sometimes. He did a couple days ago have pain in post L thigh while doing squat jumps. Prior to surgery, he would hold wts and 18 in step ups and that helped. One of the things that really aggrevates his pain is lunges w/wt. Avoids lunges d/t this. doesn' t run anymore d/t back pain. Limit of back is 2.5 miles. hills don't seem to inc back pain more along the way. walks up the hill backwards until feels quads fatigues then goes fwd; ritiual that pops back ( LTR)-improves pain. pelvic clocks on ball ,mini sit ups over tennis ball Prior Treatments and Tests IMPRESSION: [id number] lumbar spine DDD. Treatment Goals Patient/Caregiver Goals be able to do yard work, be able to jump, be able to sleep in bed PT-OP-C Subjective Start: 10/30/23 17:39 Freq: Status: Active Protocol: Document 11/06/23 16:08 [facility] (Rec: 11/06/23 16:52 [facility] [id number]) OP-PT Subjective Patient Comments Patient Comments Pt reports after IE, he was sore through the next day. PT-OP-F Manual Assessment Start: 10/30/23 17:39 Freq: Status: Active Protocol: Document 10/31/23 15:21 [facility] (Rec: 10/31/23 18:14 [facility] [id number]) Manual Assessments Soft Tissue Assessment Soft Tissue Mobility Assessment L greater trochanter sore, L QL tightness PT-OP-G Mobility & Gait Start: 10/30/23 17:39 Freq: Status: Active Protocol: Document 10/31/23 15:21 [facility] (Rec: 10/31/23 18:14 [facility] [id number]) OP Gait Assessment Comments Gait Comments dec ant dep of L pelvis w/gait PT-OP-J Posture/Palpation/Skin Start: 10/30/23 17:39 Freq: Status: Active Protocol: Document 10/31/23 15:21 [facility] (Rec: 10/31/23 18:14 [facility] [id number]) Posture Evaluation Kian Postural Classification System Ikan Postural Classifications Posterior/Posterior Vertebral Compression Test 2 Lumbar Protective Mechanism Left AP 0 Lumbar Protective Mechanism Right AP 2 Lumbar Protective Mechanism Left PA 2 Lumbar Protective Mechanism Right PA 2 Comments Posture Comments R rot, L shoulder higher, L foot turned out more: L liac crest higher; equal greater troch PT-OP-K Range of Motion Start: 10/30/23 17:39 Freq: Status: Active Protocol: Document 10/31/23 15:21 [facility] (Rec: 10/31/23 18:14 [facility] [id number]) Lumbar Spine Range of Motion Lumbar Spine Active Percentage Flexion 50 Extension 70 Rotation Left 70 Rotation Right 70 Lateral Flexion Left 50 Lateral Flexion Right 75 Comments pain L w/L SB & w/flex PT-OP-L Special Tests Start: 10/30/23 17:39 Freq: Status: Active Protocol: Document 10/31/23 15:21 [facility] (Rec: 10/31/23 18:14 [facility] [id number]) Special Tests Lumbar Spine Special Tests Nilson Comments mild B iliacus tightness SLR Test Results positive L Slump Test Results positive B (L inc tension) PT-OP-M Strength Start: 10/30/23 17:39 Freq: Status: Active Protocol: Document 10/31/23 15:21 [facility] (Rec: 10/31/23 18:14 [facility] [id number]) Hip Strength Hip Manual Muscle Testing Right Flexion (L2) 4+ Good+ Extension (S1) 4+ Good+ Abduction 5 Normal Adduction 4+ Good+ External Rotation 5 Normal Internal Rotation 5 Normal Left Flexion (L2) 4- Good- Extension (S1) 4- Good- Abduction 4+ Good+ Adduction 4+ Good+ External Rotation 5 Normal Internal Rotation 5 Normal Comments dec core engagment w/LLE MMT Knee Strength Knee Manual Muscle Testing Right Flexion (S2) 5 Normal Extension (L3) 5 Normal Left Flexion (S2) 5 Normal Extension (L3) 5 Normal PT-OP-Q Treatments Start: 10/30/23 17:39 Freq: Status: Active Protocol: Document 11/06/23 16:08 [facility] (Rec: 11/07/23 07:30 [facility] [id number]) Manual Therapy Treatment Soft Tissue Mobilization lumbar Body Location R>L paraspinals Mobilization Type Strumming Intensity/Depth Moderate Body Position Prone glute Body Location L med glute & piriformis Mobilization Type Sustained Pressure Intensity/Depth Moderate Body Position Prone Comments w/hip IR/ER Joint Mobilizations sacrum Comments caudal L and UPA L FM innominate Comments caudal L, ER L, IR R FM hip Comments hip on axis ER FM B w/manual facil at end range Neuro Re-Education Treatment Other Activities PNF Reps/Duration 11 min Comments rhythmic initiation and irradiation thru LE L for ant eleavtion progressed to COI w/ dissociation of LE and pelvis each from ea other then full ROM COI 2. abdominal series (flex x30s , diagonal x30 s, ext x30 sec, flex 30 sec) PT-OP-T Assessment and Plan Start: 10/30/23 17:39 Freq: Status: Active Protocol: Document 11/06/23 16:08 [facility] (Rec: 11/06/23 16:52 [facility] [id number]) Physical Therapy Assessment Goals activity Short Term Goal (STG) Pt will be able to sleep through the night in bed w/o inc pain STG Duration 12/08 Penitentiary Goal (LTG) pt will be able to do all yard work and inc walking distance >2.5 miles w/o inc pain in back greater than 2/10 LTG Duration 01/08 DESHAWN Impairment 20/50 Short Term Goal (STG) Pt will improve DESHAWN score to no higher than 13/50 to show improved functional ability. STG Duration 12/08 Strip Catcher Goal (LTG) Pt will improve DESHAWN score to no higher than 4/50 to show improved functional ability. LTG Duration 01/08 strength Impairment dec core stability Short Term Goal (STG) Pt will be indep w/HEP for core and hip stability STG Duration 12/08 Strip Catcher Goal (LTG) Pt will have at least 4/5 LPM in all planes and 5/5 on hip MMT in order to improve stability to allow pt greater ease w/daily life LTG Duration 01/08 Assessment Summary Assessment Pt did well with PNF with improved facilitation and core activiation but he did struggle to do full COI through entire range. He reported relief and feeling the best he has in a while upon standing up after session . Improved B hip rot after manual Physical Therapy Plan Frequency and Duration Frequency of Treatment 1-2x/wk Duration of treatment (weeks) 10 Plan of Care Start Date 10/31/23 Plan of Care End Date 01/09/24 Next Visit Focus/Plan Next Note Type Treatment Note Next Visit Plan DL isometric, review core exercises PNF manual faciliation manual to hip and innominate mobility
--- NOTE | 2023-11-16 16:55 | PT.OTN ---
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 He was working out and it went out on him when working out. He was wt lifting doing bench press w /ball under his back. That was the first time his back gave out on him. He couldn't get into the car. He had to lean back in the car and went to hospital. He was given morphine and tried to sit him up and he had extreme pain, so admitted him and was on meds for 2 days. Did PT at that point and it did help. Knows xrays were done and vertebrae were touching. He has a routine that helps his back ( plank and sideplanks). He always has some back pain but that helps manage it. Last year prior to shoulder replacement, did PT idd pain science work which did help. They did build up tolerance w/ activity w/flex etc and it did help. After shoulder replacement, he was limited in exercises. He is focusing on shoulder exercises now and now he cannot lay on bed on back w/o inc pain in back d/t back hurting after a few hours. Has been sleeping in recliner. Denies pain down legs typically. His toes tingle sometimes. He did a couple days ago have pain in post L thigh while doing squat jumps. Prior to surgery, he would hold wts and 18 in step ups and that helped. One of the things that really aggrevates his pain is lunges w/wt. Avoids lunges d/t this. doesn' t run anymore d/t back pain. Limit of back is 2.5 miles. hills don't seem to inc back pain more along the way. walks up the hill backwards until feels quads fatigues then goes fwd; ritiual that pops back ( LTR)-improves pain. pelvic clocks on ball ,mini sit ups over tennis ball Prior Treatments and Tests IMPRESSION: [id number] lumbar spine DDD. Treatment Goals Patient/Caregiver Goals be able to do yard work, be able to jump, be able to sleep in bed PT-OP-C Subjective Start: 10/30/23 17:39 Freq: Status: Active Protocol: Document 11/16/23 13:31 [facility] (Rec: 11/16/23 13:54 [facility] [id number]) OP-PT Subjective Patient Comments Patient Comments Pt reports gets pop with LTR ex and is doing the three home ex's given. Shoulder is doing great now. His L leg is not connected to his core. PT-OP-F Manual Assessment Start: 10/30/23 17:39 Freq: Status: Active Protocol: Document 10/31/23 15:21 [facility] (Rec: 10/31/23 18:14 [facility] [id number]) Manual Assessments Soft Tissue Assessment Soft Tissue Mobility Assessment L greater trochanter sore, L QL tightness PT-OP-G Mobility & Gait Start: 10/30/23 17:39 Freq: Status: Active Protocol: Document 10/31/23 15:21 [facility] (Rec: 10/31/23 18:14 [facility] [id number]) OP Gait Assessment Comments Gait Comments dec ant dep of L pelvis w/gait PT-OP-J Posture/Palpation/Skin Start: 10/30/23 17:39 Freq: Status: Active Protocol: Document 10/31/23 15:21 [facility] (Rec: 10/31/23 18:14 [facility] [id number]) Posture Evaluation Kian Postural Classification System Kian Postural Classifications Posterior/Posterior Vertebral Compression Test 2 Lumbar Protective Mechanism Left AP 0 Lumbar Protective Mechanism Right AP 2 Lumbar Protective Mechanism Left PA 2 Lumbar Protective Mechanism Right PA 2 Comments Posture Comments R rot, L shoulder higher, L foot turned out more: L liac crest higher; equal greater troch PT-OP-K Range of Motion Start: 10/30/23 17:39 Freq: Status: Active Protocol: Document 10/31/23 15:21 [facility] (Rec: 10/31/23 18:14 [facility] [id number]) Lumbar Spine Range of Motion Lumbar Spine Active Percentage Flexion 50 Extension 70 Rotation Left 70 Rotation Right 70 Lateral Flexion Left 50 Lateral Flexion Right 75 Comments pain L w/L SB & w/flex PT-OP-L Special Tests Start: 10/30/23 17:39 Freq: Status: Active Protocol: Document 10/31/23 15:21 [facility] (Rec: 10/31/23 18:14 [facility] [id number]) Special Tests Lumbar Spine Special Tests Nilson Comments mild B iliacus tightness SLR Test Results positive L Slump Test Results positive B (L inc tension) PT-OP-M Strength Start: 10/30/23 17:39 Freq: Status: Active Protocol: Document 10/31/23 15:21 [facility] (Rec: 10/31/23 18:14 [facility] [id number]) Hip Strength Hip Manual Muscle Testing Right Flexion (L2) 4+ Good+ Extension (S1) 4+ Good+ Abduction 5 Normal Adduction 4+ Good+ External Rotation 5 Normal Internal Rotation 5 Normal Left Flexion (L2) 4- Good- Extension (S1) 4- Good- Abduction 4+ Good+ Adduction 4+ Good+ External Rotation 5 Normal Internal Rotation 5 Normal Comments dec core engagment w/LLE MMT Knee Strength Knee Manual Muscle Testing Right Flexion (S2) 5 Normal Extension (L3) 5 Normal Left Flexion (S2) 5 Normal Extension (L3) 5 Normal PT-OP-Q Treatments Start: 10/30/23 17:39 Freq: Status: Active Protocol: Document 11/16/23 13:31 [facility] (Rec: 11/16/23 13:54 [facility] [id number]) Therapeutic Exercises Supine Exercises DL Isometric Press Supine Exercise Name 1. Flexion press 2. Diagonal 3 . Extension press Equipment Used self-monitoring TrA medial to ASIS Reps/Minutes 1. 2x30s (before and after TrA training) 2. x30s LTR Supine Exercise Name w/ PPT & TrA focus Side bilateral Equipment Used self-monitoring TrA medial to ASIS Comments cues for breathwork TrA Supine Exercise Name 1. w/ PPT 2. & breath focus 3. BKFO Equipment Used w/ self-monitoring medial to ASIS Reps/Minutes 3 min ea Comments cues for breathwork, two pops w/ relief reported; TrA L>R challenged Self-Care/Home Management Treatment Education Patient Education Body Mechanics,Home Exercise Program,Posture Other Education Edu to pt w/ visual aids for TrA anatomy and interrelationship with diaphragm and pelvic floor, and importance of not breathholding w/ core ex's. I/s pt in self-monitoring appropriate TrA activation medial to ASIS. PT-OP-T Assessment and Plan Start: 10/30/23 17:39 Freq: Status: Active Protocol: Document 11/16/23 13:31 [facility] (Rec: 11/16/23 13:54 [facility] [id number]) Physical Therapy Assessment Goals activity Short Term Goal (STG) Pt will be able to sleep through the night in bed w/o inc pain STG Duration 12/08 Fdc Goal (LTG) pt will be able to do all yard work and inc walking distance >2.5 miles w/o inc pain in back greater than 2/10 LTG Duration 01/08 DESHAWN Impairment 20/50 Short Term Goal (STG) Pt will improve DESHAWN score to no higher than 13/50 to show improved functional ability. STG Duration 12/08 Fdc Goal (LTG) Pt will improve DESHAWN score to no higher than 4/50 to show improved functional ability. LTG Duration 01/08 strength Impairment dec core stability Short Term Goal (STG) Pt will be indep w/HEP for core and hip stability STG Duration 12/08 Pony Trimmer Goal (LTG) Pt will have at least 4/5 LPM in all planes and 5/5 on hip MMT in order to improve stability to allow pt greater ease w/daily life LTG Duration 01/08 Assessment Summary Assessment Treamtent focus on core education and HEP review for core strengthening. Nilson is educated w/ visual aids regarding Transverse abdominis (TrA) m. anatomy and interrelationship with diaphragm and pelvic floor, and importance of not breathholding w/ core ex's. He is instructed in self- monitoring appropriate TrA activation medial to ASIS for improved recruitment with HEP. He requires consistent cues for breathwork due to tendency to hold breath with HEP, and reports relief with BKFO exercise when cued for TrA, PPT and breathwork. He demos improved self-awareness with cueing and repetitionf or TrA recruitment and breathwork. Physical Therapy Plan Frequency and Duration Frequency of Treatment 1-2x/wk Duration of treatment (weeks) 10 Plan of Care Start Date 10/31/23 Plan of Care End Date 01/09/24 Therapeutic Interventions Therapeutic Interventions Balance Training,Gait Training ,Home Exercise Program,Joint Mobilizations,Manual Therapy, Patient/Caregiver Education, Self-Care/Home Management,Soft Tissue Mobilization,Taping, Therapeutic Activities, Therapeutic Exercises Modalities Cold Pack/Ice Massage,Electric Stimulation,Hot Packs, Traction- Mechanical Next Visit Focus/Plan Next Note Type Treatment Note Next Visit Plan DL isometric, review core exercises PNF manual faciliation manual to hip and innominate mobility
--- NOTE | 2023-11-22 16:41 | PT.OTN ---
Current Diagnoses Other chronic pain (11/22/23) Low back pain, unspecified (11/22/23) Abnormal posture (11/22/23) Weakness (11/22/23) Physical Therapy Treatment Note PT-OP-A Visit Information Start: 10/30/23 17:39 Freq: Status: Active Protocol: Document 11/22/23 15:40 SW (Rec: 11/22/23 16:41 SW [id number]) Out-Patient Physical Therapy Visit Information Visit Information Visit Type Treatment Note Visit Note 09/18 Visit Start Time 15:16 Visit Stop Time 16:00 Visit Number 4 Number of DIETARY MANAGER Visits 2 PT-OP-B Current Condition Start: 10/30/23 17:39 Freq: Status: Active Protocol: Document 10/31/23 15:21 [facility] (Rec: 10/31/23 18:14 [facility] [id number]) Current Condition History of Current Condition Current Complaints LBP History of Current Condition Pt reports back pain started around 49 years old. He was working out and it went out on him when working out. He was wt lifting doing bench press w /ball under his back. That was the first time his back gave out on him. He couldn't get into the car. He had to lean back in the car and went to hospital. He was given morphine and tried to sit him up and he had extreme pain, so admitted him and was on meds for 2 days. Did PT at that point and it did help. Knows xrays were done and vertebrae were touching. He has a routine that helps his back ( plank and sideplanks). He always has some back pain but that helps manage it. Last year prior to shoulder replacement, did PT idd pain science work which did help. They did build up tolerance w/ activity w/flex etc and it did help. After shoulder replacement, he was limited in exercises. He is focusing on shoulder exercises now and now he cannot lay on bed on back w/o inc pain in back d/t back hurting after a few hours. Has been sleeping in recliner. Denies pain down legs typically. His toes tingle sometimes. He did a couple days ago have pain in post L thigh while doing squat jumps. Prior to surgery, he would hold wts and 18 in step ups and that helped. One of the things that really aggrevates his pain is lunges w/wt. Avoids lunges d/t this. doesn' t run anymore d/t back pain. Limit of back is 2.5 miles. hills don't seem to inc back pain more along the way. walks up the hill backwards until feels quads fatigues then goes fwd; ritiual that pops back ( LTR)-improves pain. pelvic clocks on ball ,mini sit ups over tennis ball Prior Treatments and Tests IMPRESSION: Cyly-jw-mjdmtflc lumbar spine DDD. Treatment Goals Patient/Caregiver Goals be able to do yard work, be able to jump, be able to sleep in bed PT-OP-C Subjective Start: 10/30/23 17:39 Freq: Status: Active Protocol: Document 11/22/23 15:40 (Rec: 11/22/23 16:41 [id number]) OP-PT Subjective Patient Comments Patient Comments Pt reports breaking habit of using weight belt, trimming rhododendrons trialed without belt and reported pain level was not near as bad as it used to be, focused on maintaining core. Reports compliant with HEP. PT-OP-F Manual Assessment Start: 10/30/23 17:39 Freq: Status: Active Protocol: Document 10/31/23 15:21 [facility] (Rec: 10/31/23 18:14 [facility] [id number]) Manual Assessments Soft Tissue Assessment Soft Tissue Mobility Assessment L greater trochanter sore, L QL tightness PT-OP-G Mobility & Gait Start: 10/30/23 17:39 Freq: Status: Active Protocol: Document 10/31/23 15:21 [facility] (Rec: 10/31/23 18:14 [facility] [id number]) OP Gait Assessment Comments Gait Comments dec ant dep of L pelvis w/gait PT-OP-J Posture/Palpation/Skin Start: 10/30/23 17:39 Freq: Status: Active Protocol: Document 10/31/23 15:21 [facility] (Rec: 10/31/23 18:14 [facility] [id number]) Posture Evaluation Kian Postural Classification System Kian Postural Classifications Posterior/Posterior Vertebral Compression Test 2 Lumbar Protective Mechanism Left AP 0 Lumbar Protective Mechanism Right AP 2 Lumbar Protective Mechanism Left PA 2 Lumbar Protective Mechanism Right PA 2 Comments Posture Comments R rot, L shoulder higher, L foot turned out more: L liac crest higher; equal greater troch PT-OP-K Range of Motion Start: 10/30/23 17:39 Freq: Status: Active Protocol: Document 10/31/23 15:21 [facility] (Rec: 10/31/23 18:14 [facility] [id number]) Lumbar Spine Range of Motion Lumbar Spine Active Percentage Flexion 50 Extension 70 Rotation Left 70 Rotation Right 70 Lateral Flexion Left 50 Lateral Flexion Right 75 Comments pain L w/L SB & w/flex PT-OP-L Special Tests Start: 10/30/23 17:39 Freq: Status: Active Protocol: Document 10/31/23 15:21 [facility] (Rec: 10/31/23 18:14 [facility] [id number]) Special Tests Lumbar Spine Special Tests Nilson Comments mild B iliacus tightness SLR Test Results positive L Slump Test Results positive B (L inc tension) PT-OP-M Strength Start: 10/30/23 17:39 Freq: Status: Active Protocol: Document 10/31/23 15:21 [facility] (Rec: 10/31/23 18:14 [facility] [id number]) Hip Strength Hip Manual Muscle Testing Right Flexion (L2) 4+ Good+ Extension (S1) 4+ Good+ Abduction 5 Normal Adduction 4+ Good+ External Rotation 5 Normal Internal Rotation 5 Normal Left Flexion (L2) 4- Good- Extension (S1) 4- Good- Abduction 4+ Good+ Adduction 4+ Good+ External Rotation 5 Normal Internal Rotation 5 Normal Comments dec core engagment w/LLE MMT Knee Strength Knee Manual Muscle Testing Right Flexion (S2) 5 Normal Extension (L3) 5 Normal Left Flexion (S2) 5 Normal Extension (L3) 5 Normal PT-OP-Q Treatments Start: 10/30/23 17:39 Freq: Status: Active Protocol: Document 11/22/23 15:40 SW (Rec: 11/22/23 16:41 SW [id number]) Therapeutic Exercises Supine Exercises Bridge Supine Exercise Name Bridge Side bilateral Reps/Minutes x10 Comments cues for glute activation, pain free TrA marches Supine Exercise Name low march Side bilateral Resistance AROM Reps/Minutes x10 ea Comments cues for decreased range to maintain core stability DL Isometric Press Supine Exercise Name 1. Flexion press 2. Diagonal 3 . Extension press Equipment Used self-monitoring TrA medial to ASIS Reps/Minutes 1. 2x30s (before and after TrA training) 2. x30s LTR Supine Exercise Name w/ PPT & TrA focus Side bilateral Equipment Used self-monitoring TrA medial to ASIS Comments cues for breathwork TrA Supine Exercise Name 1. w/ PPT 2. & breath focus 3. BKFO Equipment Used w/ self-monitoring medial to ASIS Reps/Minutes 3 min ea Comments cues for breathwork, two pops w/ relief reported; TrA L>R challenged Sidelying Exercises clamshell Sidelying Exercise Name clamshell Side bilateral Resistance AROM Reps/Minutes x10 ea Comments verbal/tactile cues for core stability, correct execution Manual Therapy Treatment Soft Tissue Mobilization glute Body Location L med glute & piriformis Mobilization Type Sustained Pressure Intensity/Depth Moderate Body Position Sidelying Comments manual/IASTM Self-Care/Home Management Treatment Education Patient Education Body Mechanics,Home Exercise Program,Posture Other Education pt education on sleep positioning in a bed, pt education on HEP, Pt education on anatomy/functional anatomy , pt education on self applied STM PT-OP-T Assessment and Plan Start: 10/30/23 17:39 Freq: Status: Active Protocol: Document 11/22/23 15:40 (Rec: 11/22/23 16:41 [id number]) Physical Therapy Assessment Goals activity Short Term Goal (STG) Pt will be able to sleep through the night in bed w/o inc pain STG Duration 12/08 Half-Way Goal (LTG) pt will be able to do all yard work and inc walking distance >2.5 miles w/o inc pain in back greater than 2/10 LTG Duration 01/08 DESHAWN Impairment 20/50 Short Term Goal (STG) Pt will improve DESHAWN score to no higher than 13/50 to show improved functional ability. STG Duration 12/08 Half-Way Goal (LTG) Pt will improve DESHAWN score to no higher than 4/50 to show improved functional ability. LTG Duration 01/08 strength Impairment dec core stability Short Term Goal (STG) Pt will be indep w/HEP for core and hip stability STG Duration 12/08 Retail Leader Goal (LTG) Pt will have at least 4/5 LPM in all planes and 5/5 on hip MMT in order to improve stability to allow pt greater ease w/daily life LTG Duration 01/08 Assessment Summary Assessment Extended time on pt education this session. Pt reports going to try sleeping in a bed vs the recliner, pt education on sleep position for postural alignment. Initiated hip strength this session, pt tolerated well, plan to assess tolerance next session, review, and progress as able. Physical Therapy Plan Frequency and Duration Frequency of Treatment 1-2x/wk Duration of treatment (weeks) 10 Plan of Care Start Date 10/31/23 Plan of Care End Date 01/09/24 Therapeutic Interventions Therapeutic Interventions Balance Training,Gait Training ,Home Exercise Program,Joint Mobilizations,Manual Therapy, Patient/Caregiver Education, Self-Care/Home Management,Soft Tissue Mobilization,Taping, Therapeutic Activities, Therapeutic Exercises Modalities Cold Pack/Ice Massage,Electric Stimulation,Hot Packs, Traction- Mechanical Next Visit Focus/Plan Next Note Type Treatment Note Next Visit Plan DL isometric, review core exercises PNF manual faciliation manual to hip and innominate mobility
--- NOTE | 2023-11-28 18:00 | PT.OTN ---
Current Diagnoses Other chronic pain (11/28/23) Low back pain, unspecified (11/28/23) Abnormal posture (11/28/23) Weakness (11/28/23) Physical Therapy Treatment Note PT-OP-A Visit Information Start: 10/30/23 17:39 Freq: Status: Active Protocol: Document 11/28/23 16:54 [facility] (Rec: 11/28/23 18:00 [facility] [id number]) Out-Patient Physical Therapy Visit Information Visit Information Visit Type Treatment Note Visit Note 10/18 Visit Start Time 16:53 Visit Stop Time 17:40 Visit Number 5 Number of BELLY ROLLER Visits 0 PT-OP-B Current Condition Start: 10/30/23 17:39 Freq: Status: Active Protocol: Document 10/31/23 15:21 [facility] (Rec: 10/31/23 18:14 [facility] [id number]) Current Condition History of Current Condition Current Complaints LBP History of Current Condition Pt reports back pain started around 49 years old. He was working out and it went out on him when working out. He was wt lifting doing bench press w /ball under his back. That was the first time his back gave out on him. He couldn't get into the car. He had to lean back in the car and went to hospital. He was given morphine and tried to sit him up and he had extreme pain, so admitted him and was on meds for 2 days. Did PT at that point and it did help. Knows xrays were done and vertebrae were touching. He has a routine that helps his back ( plank and sideplanks). He always has some back pain but that helps manage it. Last year prior to shoulder replacement, did PT idd pain science work which did help. They did build up tolerance w/ activity w/flex etc and it did help. After shoulder replacement, he was limited in exercises. He is focusing on shoulder exercises now and now he cannot lay on bed on back w/o inc pain in back d/t back hurting after a few hours. Has been sleeping in recliner. Denies pain down legs typically. His toes tingle sometimes. He did a couple days ago have pain in post L thigh while doing squat jumps. Prior to surgery, he would hold wts and 18 in step ups and that helped. One of the things that really aggrevates his pain is lunges w/wt. Avoids lunges d/t this. doesn' t run anymore d/t back pain. Limit of back is 2.5 miles. hills don't seem to inc back pain more along the way. walks up the hill backwards until feels quads fatigues then goes fwd; ritiual that pops back ( LTR)-improves pain. pelvic clocks on ball ,mini sit ups over tennis ball Prior Treatments and Tests IMPRESSION: Odsh-xg-oluddfmj lumbar spine DDD. Treatment Goals Patient/Caregiver Goals be able to do yard work, be able to jump, be able to sleep in bed PT-OP-C Subjective Start: 10/30/23 17:39 Freq: Status: Active Protocol: Document 11/28/23 16:54 [facility] (Rec: 11/28/23 18:00 [facility] [id number]) OP-PT Subjective Patient Comments Patient Comments Pt notes pain has been around about 1/10 PT-OP-F Manual Assessment Start: 10/30/23 17:39 Freq: Status: Active Protocol: Document 10/31/23 15:21 [facility] (Rec: 10/31/23 18:14 [facility] [id number]) Manual Assessments Soft Tissue Assessment Soft Tissue Mobility Assessment L greater trochanter sore, L QL tightness PT-OP-G Mobility & Gait Start: 10/30/23 17:39 Freq: Status: Active Protocol: Document 10/31/23 15:21 [facility] (Rec: 10/31/23 18:14 [facility] [id number]) OP Gait Assessment Comments Gait Comments dec ant dep of L pelvis w/gait PT-OP-J Posture/Palpation/Skin Start: 10/30/23 17:39 Freq: Status: Active Protocol: Document 10/31/23 15:21 [facility] (Rec: 10/31/23 18:14 [facility] [id number]) Posture Evaluation Kian Postural Classification System Kian Postural Classifications Posterior/Posterior Vertebral Compression Test 2 Lumbar Protective Mechanism Left AP 0 Lumbar Protective Mechanism Right AP 2 Lumbar Protective Mechanism Left PA 2 Lumbar Protective Mechanism Right PA 2 Comments Posture Comments R rot, L shoulder higher, L foot turned out more: L liac crest higher; equal greater troch PT-OP-K Range of Motion Start: 10/30/23 17:39 Freq: Status: Active Protocol: Document 10/31/23 15:21 [facility] (Rec: 10/31/23 18:14 [facility] [id number]) Lumbar Spine Range of Motion Lumbar Spine Active Percentage Flexion 50 Extension 70 Rotation Left 70 Rotation Right 70 Lateral Flexion Left 50 Lateral Flexion Right 75 Comments pain L w/L SB & w/flex PT-OP-L Special Tests Start: 10/30/23 17:39 Freq: Status: Active Protocol: Document 10/31/23 15:21 [facility] (Rec: 10/31/23 18:14 [facility] [id number]) Special Tests Lumbar Spine Special Tests Nilson Comments mild B iliacus tightness SLR Test Results positive L Slump Test Results positive B (L inc tension) PT-OP-M Strength Start: 10/30/23 17:39 Freq: Status: Active Protocol: Document 10/31/23 15:21 [facility] (Rec: 10/31/23 18:14 [facility] [id number]) Hip Strength Hip Manual Muscle Testing Right Flexion (L2) 4+ Good+ Extension (S1) 4+ Good+ Abduction 5 Normal Adduction 4+ Good+ External Rotation 5 Normal Internal Rotation 5 Normal Left Flexion (L2) 4- Good- Extension (S1) 4- Good- Abduction 4+ Good+ Adduction 4+ Good+ External Rotation 5 Normal Internal Rotation 5 Normal Comments dec core engagment w/LLE MMT Knee Strength Knee Manual Muscle Testing Right Flexion (S2) 5 Normal Extension (L3) 5 Normal Left Flexion (S2) 5 Normal Extension (L3) 5 Normal PT-OP-Q Treatments Start: 10/30/23 17:39 Freq: Status: Active Protocol: Document 11/28/23 16:54 [facility] (Rec: 11/28/23 18:00 [facility] [id number]) Therapeutic Activity Therapeutic Activity sleep Comments 14 min: edu on prop options in supine and edu w/anatomy re: why; discussed starting by readign in bed to see if inc pain for short time Manual Therapy Treatment Soft Tissue Mobilization glute Body Location R med glute & piriformis Mobilization Type Sustained Pressure Intensity/Depth Moderate Body Position Prone Joint Mobilizations sacrum Comments cadual and L UPA FM innominate Comments L abd FM, B ER FM hip Comments B hip on axis ER FM; L inf FM; L abd FM PT-OP-T Assessment and Plan Start: 10/30/23 17:39 Freq: Status: Active Protocol: Document 11/28/23 16:54 [facility] (Rec: 11/28/23 18:00 [facility] [id number]) Physical Therapy Assessment Goals activity Short Term Goal (STG) Pt will be able to sleep through the night in bed w/o inc pain STG Duration 12/08 Bulk Gas Specialist Goal (LTG) pt will be able to do all yard work and inc walking distance >2.5 miles w/o inc pain in back greater than 2/10 LTG Duration 01/08 DESHAWN Impairment 20/50 Short Term Goal (STG) Pt will improve DESHAWN score to no higher than 13/50 to show improved functional ability. STG Duration 12/08 Intermediate Goal (LTG) Pt will improve DESHAWN score to no higher than 4/50 to show improved functional ability. LTG Duration 01/08 strength Impairment dec core stability Short Term Goal (STG) Pt will be indep w/HEP for core and hip stability STG Duration 12/08 Bulk Gas Specialist Goal (LTG) Pt will have at least 4/5 LPM in all planes and 5/5 on hip MMT in order to improve stability to allow pt greater ease w/daily life LTG Duration 01/08 Assessment Summary Assessment Pt had imrpoved SB after manual treatment to 100% L SB from 60%. pt demonstrated understanding w/sleep position education. Iproved B hip ER after manual. Physical Therapy Plan Frequency and Duration Frequency of Treatment 1-2x/wk Duration of treatment (weeks) 10 Plan of Care Start Date 10/31/23 Plan of Care End Date 01/09/24 Next Visit Focus/Plan Next Note Type Treatment Note Next Visit Plan advance core as able PNF facilitation; manual to innominate and hip and lumbar spine
--- NOTE | 2023-12-05 17:09 | PT.OTN ---
Current Diagnoses Other chronic pain (12/05/23) Low back pain, unspecified (12/05/23) Abnormal posture (12/05/23) Weakness (12/05/23) Physical Therapy Treatment Note PT-OP-A Visit Information Start: 10/30/23 17:39 Freq: Status: Active Protocol: Document 12/05/23 16:09 [facility] (Rec: 12/05/23 17:09 NB [id number]) Out-Patient Physical Therapy Visit Information Visit Information Visit Type Treatment Note Visit Note 11/18 Visit Start Time 16:10 Visit Stop Time 17:03 Visit Number 6 Number of BENDER MACHINE OPERATOR Visits 1 PT-OP-B Current Condition Start: 10/30/23 17:39 Freq: Status: Active Protocol: Document 10/31/23 15:21 [facility] (Rec: 10/31/23 18:14 [facility] [id number]) Current Condition History of Current Condition Current Complaints LBP History of Current Condition Pt reports back pain started around 49 years old. He was working out and it went out on him when working out. He was wt lifting doing bench press w /ball under his back. That was the first time his back gave out on him. He couldn't get into the car. He had to lean back in the car and went to hospital. He was given morphine and tried to sit him up and he had extreme pain, so admitted him and was on meds for 2 days. Did PT at that point and it did help. Knows xrays were done and vertebrae were touching. He has a routine that helps his back ( plank and sideplanks). He always has some back pain but that helps manage it. Last year prior to shoulder replacement, did PT idd pain science work which did help. They did build up tolerance w/ activity w/flex etc and it did help. After shoulder replacement, he was limited in exercises. He is focusing on shoulder exercises now and now he cannot lay on bed on back w/o inc pain in back d/t back hurting after a few hours. Has been sleeping in recliner. Denies pain down legs typically. His toes tingle sometimes. He did a couple days ago have pain in post L thigh while doing squat jumps. Prior to surgery, he would hold wts and 18 in step ups and that helped. One of the things that really aggrevates his pain is lunges w/wt. Avoids lunges d/t this. doesn' t run anymore d/t back pain. Limit of back is 2.5 miles. hills don't seem to inc back pain more along the way. walks up the hill backwards until feels quads fatigues then goes fwd; ritiual that pops back ( LTR)-improves pain. pelvic clocks on ball ,mini sit ups over tennis ball Prior Treatments and Tests IMPRESSION: [id number] lumbar spine DDD. Treatment Goals Patient/Caregiver Goals be able to do yard work, be able to jump, be able to sleep in bed PT-OP-C Subjective Start: 10/30/23 17:39 Freq: Status: Active Protocol: Document 12/05/23 16:09 [facility] (Rec: 12/05/23 17:09 [facility] [id number]) OP-PT Subjective Patient Comments Patient Comments Nilson reports he tried two pillows under leg and when on side between his knees. He tried reading in bed and fell asleep last or Sunday but woke up with low back pack and mid back pain at 5am. Everything felt locked up including core from the front and it took him half a day to get back to normal after he took a pain killer and antiinflammatory; he slept in recliner since. Pain right now is 0.5/10. This last week he' s been gardening and didn't use back belt instead focused on core and had some soreness but nothing compared to what he usually has. Only failure was with trying to sleep in bed. Back and hip are fine with inclines/declines but after 2 mi walk on flat L mid back and L hip pain happen. Patient Reported Progress Improving PT-OP-F Manual Assessment Start: 10/30/23 17:39 Freq: Status: Active Protocol: Document 10/31/23 15:21 [facility] (Rec: 10/31/23 18:14 [facility] [id number]) Manual Assessments Soft Tissue Assessment Soft Tissue Mobility Assessment L greater trochanter sore, L QL tightness PT-OP-G Mobility & Gait Start: 10/30/23 17:39 Freq: Status: Active Protocol: Document 10/31/23 15:21 [facility] (Rec: 10/31/23 18:14 [facility] [id number]) OP Gait Assessment Comments Gait Comments dec ant dep of L pelvis w/gait PT-OP-J Posture/Palpation/Skin Start: 10/30/23 17:39 Freq: Status: Active Protocol: Document 10/31/23 15:21 [facility] (Rec: 10/31/23 18:14 [facility] [id number]) Posture Evaluation Kian Postural Classification System Kian Postural Classifications Posterior/Posterior Vertical Compression Test 2 Lumbar Protective Mechanism Left AP 0 Lumbar Protective Mechanism Right AP 2 Lumbar Protective Mechanism Left PA 2 Lumbar Protective Mechanism Right PA 2 Comments Posture Comments R rot, L shoulder higher, L foot turned out more: L liac crest higher; equal greater troch PT-OP-K Range of Motion Start: 10/30/23 17:39 Freq: Status: Active Protocol: Document 10/31/23 15:21 [facility] (Rec: 10/31/23 18:14 [facility] [id number]) Lumbar Spine Range of Motion Lumbar Spine Active Percentage Flexion 50 Extension 70 Rotation Left 70 Rotation Right 70 Lateral Flexion Left 50 Lateral Flexion Right 75 Comments pain L w/L SB & w/flex PT-OP-L Special Tests Start: 10/30/23 17:39 Freq: Status: Active Protocol: Document 10/31/23 15:21 [facility] (Rec: 10/31/23 18:14 [facility] [id number]) Special Tests Lumbar Spine Special Tests Nilson Comments mild B iliacus tightness SLR Test Results positive L Slump Test Results positive B (L inc tension) PT-OP-M Strength Start: 10/30/23 17:39 Freq: Status: Active Protocol: Document 10/31/23 15:21 [facility] (Rec: 10/31/23 18:14 [facility] [id number]) Hip Strength Hip Manual Muscle Testing Right Flexion (L2) 4+ Good+ Extension (S1) 4+ Good+ Abduction 5 Normal Adduction 4+ Good+ External Rotation 5 Normal Internal Rotation 5 Normal Left Flexion (L2) 4- Good- Extension (S1) 4- Good- Abduction 4+ Good+ Adduction 4+ Good+ External Rotation 5 Normal Internal Rotation 5 Normal Comments dec core engagment w/LLE MMT Knee Strength Knee Manual Muscle Testing Right Flexion (S2) 5 Normal Extension (L3) 5 Normal Left Flexion (S2) 5 Normal Extension (L3) 5 Normal PT-OP-Q Treatments Start: 10/30/23 17:39 Freq: Status: Active Protocol: Document 12/05/23 16:09 [facility] (Rec: 12/05/23 17:09 [facility] [id number]) Therapeutic Exercises Supine Exercises Bridge Supine Exercise Name Bridge Side bilateral Reps/Minutes x10 Comments cues for glute activation, pain free TrA marches Supine Exercise Name low march Side bilateral Resistance AROM Reps/Minutes 2x10 ea Comments cues for belly breath and slower pacing DL Isometric Press Supine Exercise Name 1. Flexion press 2. Diagonal 3 . Extension press Equipment Used self-monitoring TrA medial to ASIS Reps/Minutes 1. 2x30s (before and after TrA training) 2. x30s LTR Supine Exercise Name w/ PPT & TrA focus Side bilateral Equipment Used self-monitoring TrA medial to ASIS Comments cues for breathwork TrA Supine Exercise Name 1. w/ PPT 2. & breath focus 3. BKFO Equipment Used w/ self-monitoring medial to ASIS Reps/Minutes 3 min ea Comments cues for breathwork, two pops w/ relief reported; TrA L>R challenged Sidelying Exercises reverse clamshell Side bilateral Reps/Minutes x10 ea Comments 1/10 pain reported L QL insertion L, resolves after R clamshell Sidelying Exercise Name clamshell Side bilateral Resistance LVl 1 Tb (given for HEP) Reps/Minutes x10 ea, x10 Lvl 1 Tb Comments verbal/tactile cues for core stability, correct execution Manual Therapy Treatment Soft Tissue Mobilization lumbar Body Location L QL Mobilization Type Rolling,Strumming,Other Intensity/Depth Moderate Body Position Sidelying Comments Manual L QL stretch 3 x30s - postiive feedback response. Self-Care/Home Management Treatment Education Patient Education Body Mechanics,Home Exercise Program,Posture Other Education -Pt provided Lvl 1 Tb to progress s/l clamshell HEP. -Added QL stretch at wall to HEP - edu to pt of QL m. anatomy w/ visual aid as pt indicates L QL m. origin and inserrtion is region of pain and reports positive feedback response to manual L QL stretch. -Pt i/s in belly breathing w/ core strengthening focus. PT-OP-T Assessment and Plan Start: 10/30/23 17:39 Freq: Status: Active Protocol: Document 12/05/23 16:09 [facility] (Rec: 12/05/23 17:09 [facility] [id number]) Physical Therapy Assessment Goals activity Short Term Goal (STG) Pt will be able to sleep through the night in bed w/o inc pain STG Duration 12/08 Civil Structural Designer Goal (LTG) pt will be able to do all yard work and inc walking distance >2.5 miles w/o inc pain in back greater than 2/10 LTG Duration 01/08 DESHAWN Impairment 20/50 Short Term Goal (STG) Pt will improve DESHAWN score to no higher than 13/50 to show improved functional ability. STG Duration 12/08 Civil Structural Designer Goal (LTG) Pt will improve DESHAWN score to no higher than 4/50 to show improved functional ability. LTG Duration 01/08 strength Impairment dec core stability Short Term Goal (STG) Pt will be indep w/HEP for core and hip stability STG Duration 12/08 Civil Structural Designer Goal (LTG) Pt will have at least 4/5 LPM in all planes and 5/5 on hip MMT in order to improve stability to allow pt greater ease w/daily life LTG Duration 01/08 Assessment Summary Assessment Treatment focus on edu to pt for movement progression when experiencing mid and low back pain seizing up: PPT, LTR, bridging. Pt provided Lvl 1 Tb to progress s/l clamshell HEP . Added QL stretch at wall to HEP - edu to pt of QL m. anatomy w/ visual aid as pt indicates L QL m. origin and inserrtion is region of pain and reports positive feedback response to manual L QL stretch. Pt i/s in belly breathing w/core strengthening focus. Physical Therapy Plan Frequency and Duration Frequency of Treatment 1-2x/wk Duration of treatment (weeks) 10 Plan of Care Start Date 10/31/23 Plan of Care End Date 01/09/24 Therapeutic Interventions Therapeutic Interventions Balance Training,Gait Training ,Home Exercise Program,Joint Mobilizations,Manual Therapy, Patient/Caregiver Education, Self-Care/Home Management,Soft Tissue Mobilization,Taping, Therapeutic Activities, Therapeutic Exercises Modalities Cold Pack/Ice Massage,Electric Stimulation,Hot Packs, Traction- Mechanical Next Visit Focus/Plan Next Note Type Treatment Note Next Visit Plan Review QL stretch, add open book. POC: advance core as able PNF facilitation; manual to innominate and hip and lumbar spine
--- NOTE | 2023-12-12 16:39 | PT.OTN ---
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 (Rec: 10/31/23 18:14 [facility] [id number]) Current Condition History of Current Condition Current Complaints LBP History of Current Condition Pt reports back pain started around 49 years old. He was working out and it went out on him when working out. He was wt lifting doing bench press w /ball under his back. That was the first time his back gave out on him. He couldn't get into the car. He had to lean back in the car and went to hospital. He was given morphine and tried to sit him up and he had extreme pain, so admitted him and was on meds for 2 days. Did PT at that point and it did help. Knows xrays were done and vertebrae were touching. He has a routine that helps his back ( plank and sideplanks). He always has some back pain but that helps manage it. Last year prior to shoulder replacement, did PT idd pain science work which did help. They did build up tolerance w/ activity w/flex etc and it did help. After shoulder replacement, he was limited in exercises. He is focusing on shoulder exercises now and now he cannot lay on bed on back w/o inc pain in back d/t back hurting after a few hours. Has been sleeping in recliner. Denies pain down legs typically. His toes tingle sometimes. He did a couple days ago have pain in post L thigh while doing squat jumps. Prior to surgery, he would hold wts and 18 in step ups and that helped. One of the things that really aggrevates his pain is lunges w/wt. Avoids lunges d/t this. doesn' t run anymore d/t back pain. Limit of back is 2.5 miles. hills don't seem to inc back pain more along the way. walks up the hill backwards until feels quads fatigues then goes fwd; ritiual that pops back ( LTR)-improves pain. pelvic clocks on ball ,mini sit ups over tennis ball Prior Treatments and Tests IMPRESSION: [id number]-be-[id number] lumbar spine DDD. Treatment Goals Patient/Caregiver Goals be able to do yard work, be able to jump, be able to sleep in bed PT-OP-C Subjective Start: 10/30/23 17:39 Freq: Status: Active Protocol: Document 12/12/23 14:43 [facility] (Rec: 12/12/23 15:23 [facility] [id number]) OP-PT Subjective Patient Comments Patient Comments Nilson reports he's still pretty sore so he doesn't know if he's overdoing it or underdoing it. PT-OP-F Manual Assessment Start: 10/30/23 17:39 Freq: Status: Active Protocol: Document 10/31/23 15:21 [facility] (Rec: 10/31/23 18:14 [facility] [id number]) Manual Assessments Soft Tissue Assessment Soft Tissue Mobility Assessment L greater trochanter sore, L QL tightness PT-OP-G Mobility & Gait Start: 10/30/23 17:39 Freq: Status: Active Protocol: Document 10/31/23 15:21 [facility] (Rec: 10/31/23 18:14 [facility] [id number]) OP Gait Assessment Comments Gait Comments dec ant dep of L pelvis w/gait PT-OP-J Posture/Palpation/Skin Start: 10/30/23 17:39 Freq: Status: Active Protocol: Document 12/19/23 17:51 [facility] (Rec: 12/20/23 17:59 [facility] [id number]) Posture Evaluation Kian Postural Classification System Kian Postural Classifications Posterior/Posterior Vertical Compression Test 3 Lumbar Protective Mechanism Left AP 2 Lumbar Protective Mechanism Right AP 3 Lumbar Protective Mechanism Left PA 4 Lumbar Protective Mechanism Right PA 4 PT-OP-K Range of Motion Start: 10/30/23 17:39 Freq: Status: Active Protocol: Document 12/19/23 17:51 [facility] (Rec: 12/20/23 17:59 [facility] [id number]) Lumbar Spine Range of Motion Lumbar Spine Active Percentage Flexion 70 Extension 80 Rotation Left 80 Rotation Right 80 Lateral Flexion Left 60 Lateral Flexion Right 75 Comments pain L w/L SB & w/flex PT-OP-L Special Tests Start: 10/30/23 17:39 Freq: Status: Active Protocol: Document 10/31/23 15:21 [facility] (Rec: 10/31/23 18:14 [facility] [id number]) Special Tests Lumbar Spine Special Tests Nilson Comments mild B iliacus tightness SLR Test Results positive L Slump Test Results positive B (L inc tension) PT-OP-M Strength Start: 10/30/23 17:39 Freq: Status: Active Protocol: Document 12/19/23 17:51 [facility] (Rec: 12/20/23 17:59 [facility] [id number]) Hip Strength Hip Manual Muscle Testing Right Flexion (L2) 5 Normal Extension (S1) 5 Normal Abduction 5 Normal Adduction 5 Normal External Rotation 5 Normal Internal Rotation 5 Normal Left Flexion (L2) 5 Normal Extension (S1) 5 Normal Abduction 5 Normal Adduction 5 Normal External Rotation 5 Normal Internal Rotation 5 Normal PT-OP-Q Treatments Start: 10/30/23 17:39 Freq: Status: Active Protocol: Document 12/12/23 14:43 [facility] (Rec: 12/12/23 15:23 [facility] [id number]) Therapeutic Exercises Prone Exercises plank Reps/Minutes 30s Comments cue for cervical spinal alignment Sidelying Exercises open book stretch Sidelying Exercise Name R s/l d/t time. Side left Equipment Used mat on floor, three pillows Reps/Minutes x10 AROM, 1x20 SH Comments cues for relaxed neck, breathwork side planks Sidelying Exercise Name modified from knees, arm reaching towards ceiling Side bilateral Standing Exercises QL stretch Standing Exercise Name HEP review Side bilateral Equipment Used wall Reps/Minutes x30s ea Comments cues for longer hold (pt initially holds <15s ea) Other Exercises quadruped Other Exercise Name bird dog progression: 1. UE 2. LE 3. Bird dog Side bilateral Reps/Minutes 8' Comments cues for TrA activation, excessive pelvic rot, full knee extension, breath PT-OP-T Assessment and Plan Start: 10/30/23 17:39 Freq: Status: Active Protocol: Document 12/12/23 14:43 [facility] (Rec: 12/12/23 15:23 [facility] [id number]) Physical Therapy Assessment Goals activity Short Term Goal (STG) Pt will be able to sleep through the night in bed w/o inc pain STG Duration 12/08 Product Safety Associate Goal (LTG) pt will be able to do all yard work and inc walking distance >2.5 miles w/o inc pain in back greater than 2/10 LTG Duration 01/08 DESHAWN Impairment 20/50 Short Term Goal (STG) Pt will improve DESHAWN score to no higher than 13/50 to show improved functional ability. STG Duration 12/08 Product Safety Associate Goal (LTG) Pt will improve DESHAWN score to no higher than 4/50 to show improved functional ability. LTG Duration 01/08 strength Impairment dec core stability Short Term Goal (STG) Pt will be indep w/HEP for core and hip stability STG Duration 12/08 Longterm Goal (LTG) Pt will have at least 4/5 LPM in all planes and 5/5 on hip MMT in order to improve stability to allow pt greater ease w/daily life LTG Duration 01/08 Assessment Summary Assessment Treatment focus on core progression w/ breathwork, QL stretching review and trial of open book stretch with scapular setting and breath focus. He requires cues w/ open book stretch for breath and relaxed neck, and cues with plank and side plank for spinal alignment. He requires cues for longer hold time with stretching and in quadruped bird dog progression requires cues for TrA activation, excessive pelvic rotation, full knee extension, and breath. Physical Therapy Plan Frequency and Duration Frequency of Treatment 1-2x/wk Duration of treatment (weeks) 10 Plan of Care Start Date 10/31/23 Plan of Care End Date 01/09/24 Therapeutic Interventions Therapeutic Interventions Balance Training,Gait Training ,Home Exercise Program,Joint Mobilizations,Manual Therapy, Patient/Caregiver Education, Self-Care/Home Management,Soft Tissue Mobilization,Taping, Therapeutic Activities, Therapeutic Exercises Modalities Cold Pack/Ice Massage,Electric Stimulation,Hot Packs, Traction- Mechanical Next Visit Focus/Plan Next Note Type Treatment Note Next Visit Plan advance core as able PNF facilitation; manual to innominate and hip and lumbar spine
--- NOTE | 2023-12-19 17:59 | PT.OTN ---
Current Diagnoses Other chronic pain (12/19/23) Low back pain, unspecified (12/19/23) Abnormal posture (12/19/23) Weakness (12/19/23) Physical Therapy Treatment Note PT-OP-A Visit Information Start: 10/30/23 17:39 Freq: Status: Active Protocol: Document 12/19/23 17:51 [facility] (Rec: 12/20/23 17:59 [facility] [id number]) Out-Patient Physical Therapy Visit Information Visit Information Visit Type Progress Note Visit Start Time 16:07 Visit Stop Time 16:48 Visit Number 8 Number of OPEN HEARTH MELTER Visits 0 PT-OP-B Current Condition Start: 10/30/23 17:39 Freq: Status: Active Protocol: Document 10/31/23 15:21 [facility] (Rec: 10/31/23 18:14 [facility] [id number]) Current Condition History of Current Condition Current Complaints LBP History of Current Condition Pt reports back pain started around 49 years old. He was working out and it went out on him when working out. He was wt lifting doing bench press w /ball under his back. That was the first time his back gave out on him. He couldn't get into the car. He had to lean back in the car and went to hospital. He was given morphine and tried to sit him up and he had extreme pain, so admitted him and was on meds for 2 days. Did PT at that point and it did help. Knows xrays were done and vertebrae were touching. He has a routine that helps his back ( plank and sideplanks). He always has some back pain but that helps manage it. Last year prior to shoulder replacement, did PT idd pain science work which did help. They did build up tolerance w/ activity w/flex etc and it did help. After shoulder replacement, he was limited in exercises. He is focusing on shoulder exercises now and now he cannot lay on bed on back w/o inc pain in back d/t back hurting after a few hours. Has been sleeping in recliner. Denies pain down legs typically. His toes tingle sometimes. He did a couple days ago have pain in post L thigh while doing squat jumps. Prior to surgery, he would hold wts and 18 in step ups and that helped. One of the things that really aggrevates his pain is lunges w/wt. Avoids lunges d/t this. doesn' t run anymore d/t back pain. Limit of back is 2.5 miles. hills don't seem to inc back pain more along the way. walks up the hill backwards until feels quads fatigues then goes fwd; ritiual that pops back ( LTR)-improves pain. pelvic clocks on ball ,mini sit ups over tennis ball Prior Treatments and Tests IMPRESSION: Qwim-er-gdnvtaiq lumbar spine DDD. Treatment Goals Patient/Caregiver Goals be able to do yard work, be able to jump, be able to sleep in bed PT-OP-C Subjective Start: 10/30/23 17:39 Freq: Status: Active Protocol: Document 12/19/23 17:51 [facility] (Rec: 12/20/23 17:59 [facility] [id number]) OP-PT Subjective Patient Comments Patient Comments Pt reports he tried sleeping in his bed and woke up d/t pain in 1 hour. Did not try pillow under legs. Cleaned pond in yard w/o inc pain PT-OP-F Manual Assessment Start: 10/30/23 17:39 Freq: Status: Active Protocol: Document 10/31/23 15:21 [facility] (Rec: 10/31/23 18:14 [facility] [id number]) Manual Assessments Soft Tissue Assessment Soft Tissue Mobility Assessment L greater trochanter sore, L QL tightness PT-OP-G Mobility & Gait Start: 10/30/23 17:39 Freq: Status: Active Protocol: Document 10/31/23 15:21 [facility] (Rec: 10/31/23 18:14 [facility] [id number]) OP Gait Assessment Comments Gait Comments dec ant dep of L pelvis w/gait PT-OP-J Posture/Palpation/Skin Start: 10/30/23 17:39 Freq: Status: Active Protocol: Document 12/19/23 17:51 [facility] (Rec: 12/20/23 17:59 [facility] [id number]) Posture Evaluation Kian Postural Classification System Kian Postural Classifications Posterior/Posterior Vertical Compression Test 3 Lumbar Protective Mechanism Left AP 2 Lumbar Protective Mechanism Right AP 3 Lumbar Protective Mechanism Left PA 4 Lumbar Protective Mechanism Right PA 4 PT-OP-K Range of Motion Start: 10/30/23 17:39 Freq: Status: Active Protocol: Document 12/19/23 17:51 [facility] (Rec: 12/20/23 17:59 [facility] [id number]) Lumbar Spine Range of Motion Lumbar Spine Active Percentage Flexion 70 Extension 80 Rotation Left 80 Rotation Right 80 Lateral Flexion Left 60 Lateral Flexion Right 75 Comments pain L w/L SB & w/flex PT-OP-L Special Tests Start: 10/30/23 17:39 Freq: Status: Active Protocol: Document 10/31/23 15:21 [facility] (Rec: 10/31/23 18:14 [facility] [id number]) Special Tests Lumbar Spine Special Tests Nilson Comments mild B iliacus tightness SLR Test Results positive L Slump Test Results positive B (L inc tension) PT-OP-M Strength Start: 10/30/23 17:39 Freq: Status: Active Protocol: Document 12/19/23 17:51 [facility] (Rec: 12/20/23 17:59 [facility] [id number]) Hip Strength Hip Manual Muscle Testing Right Flexion (L2) 5 Normal Extension (S1) 5 Normal Abduction 5 Normal Adduction 5 Normal External Rotation 5 Normal Internal Rotation 5 Normal Left Flexion (L2) 5 Normal Extension (S1) 5 Normal Abduction 5 Normal Adduction 5 Normal External Rotation 5 Normal Internal Rotation 5 Normal PT-OP-Q Treatments Start: 10/30/23 17:39 Freq: Status: Active Protocol: Document 12/19/23 17:51 [facility] (Rec: 12/20/23 17:59 [facility] [id number]) Therapeutic Exercises Standing Exercises ROM Standing Exercise Name AROm lumbar Other Exercises isometrics Other Exercise Name LPM, EFT & B hip MMT Side bilateral Manual Therapy Treatment Soft Tissue Mobilization lumbar Body Location B QL and ES Mobilization Type Rolling,Strumming,Other Intensity/Depth Moderate Body Position Sidelying Joint Mobilizations lumbar Comments R L5 downglide seated FM innominate Comments L add FM s/l; seated L PA FM hip Comments L add FM PT-OP-T Assessment and Plan Start: 10/30/23 17:39 Freq: Status: Active Protocol: Document 12/19/23 17:51 [facility] (Rec: 12/20/23 17:59 [facility] [id number]) Physical Therapy Assessment Impairments Impairments Activity Tolerance,Functional Activities,Functional Mobility ,Gait,Pain,Posture,ROM,Soft Tissue Mobility,Strength Goals activity Short Term Goal (STG) Pt will be able to sleep through the night in bed w/o inc pain 12/19-pain after 1 hour STG Duration 12/08 Correction Goal (LTG) pt will be able to do all yard work and inc walking distance >2.5 miles w/o inc pain in back greater than 212/19-has not tried long walk, has been doing well w/yard work LTG Duration 02/27 DESHAWN Impairment 20 Short Term Goal (STG) Pt will improve DESHAWN score to no higher than 13/50 to show improved functional ability. 12/19- STG Duration 01/19 Correction Goal (LTG) Pt will improve DESHAWN score to no higher than 4/50 to show improved functional ability. LTG Duration 02/27 strength Impairment dec core stability Short Term Goal (STG) Pt will be indep w/HEP for core and hip stability STG Duration achieved advancing as able Financial Aid Coordinator Goal (LTG) Pt will have at least 4/5 LPM in all planes and 5/5 on hip MMT in order to improve stability to allow pt greater ease w/daily life 12/19-met w/EFT, and hip MMT, mild limit LPM AP LTG Duration 02/27 Assessment Summary Assessment Pt is overall making good progress w/PT and is feeling better than he has in a long time when he is up and moving. He can now do yard work w/o use of wt belt and has been doign heavy tasks like cleaning out his pond. He still is having pain when laying and cannot sleep at night in bed. Pt would benefit from cont skilled PT to dec pain and improve function. Physical Therapy Plan Frequency and Duration Frequency of Treatment 1-2x/wk Duration of treatment (weeks) 10 Plan of Care Start Date 12/20/23 Plan of Care End Date 02/28/24 Therapeutic Interventions Therapeutic Interventions Balance Training,Gait Training ,Home Exercise Program,Joint Mobilizations,Manual Therapy, Patient/Caregiver Education, Self-Care/Home Management,Soft Tissue Mobilization,Taping, Therapeutic Activities, Therapeutic Exercises Modalities Cold Pack/Ice Massage,Electric Stimulation,Hot Packs, Traction- Mechanical Next Visit Focus/Plan Next Note Type Treatment Note Next Visit Plan Review QL stretch,open book. POC: advance core as able PNF facilitation; manual to innominate and hip and lumbar spine
--- NOTE | 2023-12-19 18:00 | PT.OPPOC ---
Physical, Occupational & Speech Therapy At [facility] Current Diagnoses Other chronic pain (12/19/23) Low back pain, unspecified (12/19/23) Abnormal posture (12/19/23) Weakness (12/19/23) Visit Care Team Role Provider Type Brigitte Hopper PA-C Attending Provider Non-Staff Family Provider Primary Care Provider Referring Provider Specialty: Medical Address: [address] [place] [address], [facility] Email: Plan Of Care PT-OP-T Assessment and Plan Start: 10/30/23 17:39 Freq: Status: Active Protocol: Document 12/19/23 17:51 [facility] (Rec: 12/20/23 17:59 [facility] [id number]) Physical Therapy Assessment Impairments Impairments Activity Tolerance,Functional Activities,Functional Mobility ,Gait,Pain,Posture,ROM,Soft Tissue Mobility,Strength Goals activity Short Term Goal (STG) Pt will be able to sleep through the night in bed w/o inc pain 12/19-pain after 1 hour STG Duration 12/08 Gr[employer] 6 [employer] 8 Teacher Goal (LTG) pt will be able to do all yard work and inc walking distance >2.5 miles w/o inc pain in back greater than 2/10 12/19-has not tried long walk, has been doing well w/yard work LTG Duration 02/27 DESHAWN Impairment 20/50 Short Term Goal (STG) Pt will improve DESHAWN score to no higher than 13/50 to show improved functional ability. 12/19- STG Duration 01/19 Shelter Goal (LTG) Pt will improve DESHAWN score to no higher than 4/50 to show improved functional ability. LTG Duration 02/27 strength Impairment dec core stability Short Term Goal (STG) Pt will be indep w/HEP for core and hip stability STG Duration achieved advancing as able Shelter Goal (LTG) Pt will have at least 4/5 LPM in all planes and 5/5 on hip MMT in order to improve stability to allow pt greater ease w/daily life 12/19-met w/EFT, and hip MMT, mild limit LPM AP LTG Duration 02/27 Assessment Summary Assessment Pt is overall making good progress w/PT and is feeling better than he has in a long time when he is up and moving. He can now do yard work w/o use of wt belt and has been doign heavy tasks like cleaning out his pond. He still is having pain when laying and cannot sleep at night in bed. Pt would benefit from cont skilled PT to dec pain and improve function. Physical Therapy Plan Frequency and Duration Frequency of Treatment 1-2x/wk Duration of treatment (weeks) 10 Plan of Care Start Date 12/20/23 Plan of Care End Date 02/28/24 Therapeutic Interventions Therapeutic Interventions Balance Training,Gait Training ,Home Exercise Program,Joint Mobilizations,Manual Therapy, Patient/Caregiver Education, Self-Care/Home Management,Soft Tissue Mobilization,Taping, Therapeutic Activities, Therapeutic Exercises Modalities Cold Pack/Ice Massage,Electric Stimulation,Hot Packs, Traction- Mechanical Next Visit Focus/Plan Next Note Type Treatment Note Next Visit Plan Review QL stretch,open book. POC: advance core as able PNF facilitation; manual to innominate and hip and lumbar spine Plan of Care Dates Plan of Care Start Date 12/20/23 Plan of Care End Date 02/28/24 Electronically Signed by: Jo Johnson, PT 12/20/23 1800 If you are in agreement with this Plan of Care, please return a signed and dated copy. I have reviewed this Plan of Care and certify that the skilled therapy services above are required to meet the patient?s needs. Physician Signature Date Printed Name and Credentials Clinical Instructor Signature Printed Name and Credentials
--- NOTE | 2023-12-20 18:00 | PT.OPPN ---
Current Diagnoses Other chronic pain (12/19/23) Low back pain, unspecified (12/19/23) Abnormal posture (12/19/23) Weakness (12/19/23) Physical Therapy Progress Note PT-OP-A Visit Information Start: 10/30/23 17:39 Freq: Status: Active Protocol: Document 12/19/23 17:51 [facility] (Rec: 12/20/23 17:59 [facility] [id number]) Out-Patient Physical Therapy Visit Information Visit Information Visit Type Progress Note Visit Start Time 16:07 Visit Stop Time 16:48 Visit Number 8 Number of SHOWER DOORS AND PANELS FABRICATOR Visits 0 PT-OP-B Current Condition Start: 10/30/23 17:39 Freq: Status: Active Protocol: Document 10/31/23 15:21 [facility] (Rec: 10/31/23 18:14 [facility] [id number]) Current Condition History of Current Condition Current Complaints LBP History of Current Condition Pt reports back pain started around 49 years old. He was working out and it went out on him when working out. He was wt lifting doing bench press w /ball under his back. That was the first time his back gave out on him. He couldn't get into the car. He had to lean back in the car and went to hospital. He was given morphine and tried to sit him up and he had extreme pain, so admitted him and was on meds for 2 days. Did PT at that point and it did help. Knows xrays were done and vertebrae were touching. He has a routine that helps his back ( plank and sideplanks). He always has some back pain but that helps manage it. Last year prior to shoulder replacement, did PT idd pain science work which did help. They did build up tolerance w/ activity w/flex etc and it did help. After shoulder replacement, he was limited in exercises. He is focusing on shoulder exercises now and now he cannot lay on bed on back w/o inc pain in back d/t back hurting after a few hours. Has been sleeping in recliner. Denies pain down legs typically. His toes tingle sometimes. He did a couple days ago have pain in post L thigh while doing squat jumps. Prior to surgery, he would hold wts and 18 in step ups and that helped. One of the things that really aggrevates his pain is lunges w/wt. Avoids lunges d/t this. doesn' t run anymore d/t back pain. Limit of back is 2.5 miles. hills don't seem to inc back pain more along the way. walks up the hill backwards until feels quads fatigues then goes fwd; ritiual that pops back ( LTR)-improves pain. pelvic clocks on ball ,mini sit ups over tennis ball Prior Treatments and Tests IMPRESSION: Wowi-ih-wryobday lumbar spine DDD. Treatment Goals Patient/Caregiver Goals be able to do yard work, be able to jump, be able to sleep in bed PT-OP-C Subjective Start: 10/30/23 17:39 Freq: Status: Active Protocol: Document 12/19/23 17:51 [facility] (Rec: 12/20/23 17:59 [facility] [id number]) OP-PT Subjective Patient Comments Patient Comments Pt reports he tried sleeping in his bed and woke up d/t pain in 1 hour. Did not try pillow under legs. Cleaned pond in yard w/o inc pain PT-OP-F Manual Assessment Start: 10/30/23 17:39 Freq: Status: Active Protocol: Document 10/31/23 15:21 [facility] (Rec: 10/31/23 18:14 [facility] [id number]) Manual Assessments Soft Tissue Assessment Soft Tissue Mobility Assessment L greater trochanter sore, L QL tightness PT-OP-G Mobility & Gait Start: 10/30/23 17:39 Freq: Status: Active Protocol: Document 10/31/23 15:21 [facility] (Rec: 10/31/23 18:14 [facility] [id number]) OP Gait Assessment Comments Gait Comments dec ant dep of L pelvis w/gait PT-OP-J Posture/Palpation/Skin Start: 10/30/23 17:39 Freq: Status: Active Protocol: Document 12/19/23 17:51 [facility] (Rec: 12/20/23 17:59 [facility] [id number]) Posture Evaluation Kian Postural Classification System Kian Postural Classifications Posterior/Posterior Vertical Compression Test 3 Lumbar Protective Mechanism Left AP 2 Lumbar Protective Mechanism Right AP 3 Lumbar Protective Mechanism Left PA 4 Lumbar Protective Mechanism Right PA 4 PT-OP-K Range of Motion Start: 10/30/23 17:39 Freq: Status: Active Protocol: Document 12/19/23 17:51 [facility] (Rec: 12/20/23 17:59 [facility] [id number]) Lumbar Spine Range of Motion Lumbar Spine Active Percentage Flexion 70 Extension 80 Rotation Left 80 Rotation Right 80 Lateral Flexion Left 60 Lateral Flexion Right 75 Comments pain L w/L SB & w/flex PT-OP-L Special Tests Start: 10/30/23 17:39 Freq: Status: Active Protocol: Document 10/31/23 15:21 [facility] (Rec: 10/31/23 18:14 [facility] [id number]) Special Tests Lumbar Spine Special Tests Nilson Comments mild B iliacus tightness SLR Test Results positive L Slump Test Results positive B (L inc tension) PT-OP-M Strength Start: 10/30/23 17:39 Freq: Status: Active Protocol: Document 12/19/23 17:51 [facility] (Rec: 12/20/23 17:59 [facility] [id number]) Hip Strength Hip Manual Muscle Testing Right Flexion (L2) 5 Normal Extension (S1) 5 Normal Abduction 5 Normal Adduction 5 Normal External Rotation 5 Normal Internal Rotation 5 Normal Left Flexion (L2) 5 Normal Extension (S1) 5 Normal Abduction 5 Normal Adduction 5 Normal External Rotation 5 Normal Internal Rotation 5 Normal PT-OP-T Assessment and Plan Start: 10/30/23 17:39 Freq: Status: Active Protocol: Document 12/19/23 17:51 [facility] (Rec: 12/20/23 17:59 [facility] [id number]) Physical Therapy Assessment Impairments Impairments Activity Tolerance,Functional Activities,Functional Mobility ,Gait,Pain,Posture,ROM,Soft Tissue Mobility,Strength Goals activity Short Term Goal (STG) Pt will be able to sleep through the night in bed w/o inc pain 12/19-pain after 1 hour STG Duration 12/08 Senior Grant Writer Goal (LTG) pt will be able to do all yard work and inc walking distance >2.5 miles w/o inc pain in back greater than 212/19-has not tried long walk, has been doing well w/yard work LTG Duration 02/27 DESHAWN Impairment 20/50 Short Term Goal (STG) Pt will improve DESHAWN score to no higher than 13/50 to show improved functional ability. 12/19- STG Duration 01/19 Prison Goal (LTG) Pt will improve DESHAWN score to no higher than 4/50 to show improved functional ability. LTG Duration 02/27 strength Impairment dec core stability Short Term Goal (STG) Pt will be indep w/HEP for core and hip stability STG Duration achieved advancing as able Senior Grant Writer Goal (LTG) Pt will have at least 4/5 LPM in all planes and 5/5 on hip MMT in order to improve stability to allow pt greater ease w/daily life 12/19-met w/EFT, and hip MMT, mild limit LPM AP LTG Duration 02/27 Assessment Summary Assessment Pt is overall making good progress w/PT and is feeling better than he has in a long time when he is up and moving. He can now do yard work w/o use of wt belt and has been doign heavy tasks like cleaning out his pond. He still is having pain when laying and cannot sleep at night in bed. Pt would benefit from cont skilled PT to dec pain and improve function. Physical Therapy Plan Frequency and Duration Frequency of Treatment 1-2x/wk Duration of treatment (weeks) 10 Plan of Care Start Date 12/20/23 Plan of Care End Date 02/28/24 Therapeutic Interventions Therapeutic Interventions Balance Training,Gait Training ,Home Exercise Program,Joint Mobilizations,Manual Therapy, Patient/Caregiver Education, Self-Care/Home Management,Soft Tissue Mobilization,Taping, Therapeutic Activities, Therapeutic Exercises Modalities Cold Pack/Ice Massage,Electric Stimulation,Hot Packs, Traction- Mechanical Next Visit Focus/Plan Next Note Type Treatment Note Next Visit Plan Review QL stretch,open book. POC: advance core as able PNF facilitation; manual to innominate and hip and lumbar spine
--- NOTE | 2023-12-26 18:50 | PT.OTN ---
Current Diagnoses Other chronic pain (12/26/23) Low back pain, unspecified (12/26/23) Abnormal posture (12/26/23) Weakness (12/26/23) Physical Therapy Treatment Note PT-OP-A Visit Information Start: 10/30/23 17:39 Freq: Status: Active Protocol: Document 12/26/23 15:29 NBM (Rec: 12/26/23 16:11 NB [id number]) Out-Patient Physical Therapy Visit Information Visit Information Visit Type Treatment Note Visit Start Time 15:25 Visit Stop Time 16:10 Visit Number 9 Number of OCCUPATIONAL MEDICINE PHYSICIAN Visits 1 PT-OP-B Current Condition Start: 10/30/23 17:39 Freq: Status: Active Protocol: Document 10/31/23 15:21 LR (Rec: 10/31/23 18:14 [facility] [id number]) Current Condition History of Current Condition Current Complaints LBP History of Current Condition Pt reports back pain started around 49 years old. He was working out and it went out on him when working out. He was wt lifting doing bench press w /ball under his back. That was the first time his back gave out on him. He couldn't get into the car. He had to lean back in the car and went to hospital. He was given morphine and tried to sit him up and he had extreme pain, so admitted him and was on meds for 2 days. Did PT at that point and it did help. Knows xrays were done and vertebrae were touching. He has a routine that helps his back ( plank and sideplanks). He always has some back pain but that helps manage it. Last year prior to shoulder replacement, did PT idd pain science work which did help. They did build up tolerance w/ activity w/flex etc and it did help. After shoulder replacement, he was limited in exercises. He is focusing on shoulder exercises now and now he cannot lay on bed on back w/o inc pain in back d/t back hurting after a few hours. Has been sleeping in recliner. Denies pain down legs typically. His toes tingle sometimes. He did a couple days ago have pain in post L thigh while doing squat jumps. Prior to surgery, he would hold wts and 18 in step ups and that helped. One of the things that really aggrevates his pain is lunges w/wt. Avoids lunges d/t this. doesn' t run anymore d/t back pain. Limit of back is 2.5 miles. hills don't seem to inc back pain more along the way. walks up the hill backwards until feels quads fatigues then goes fwd; ritiual that pops back ( LTR)-improves pain. pelvic clocks on ball ,mini sit ups over tennis ball Prior Treatments and Tests IMPRESSION: [id number] lumbar spine DDD. Treatment Goals Patient/Caregiver Goals be able to do yard work, be able to jump, be able to sleep in bed PT-OP-C Subjective Start: 10/30/23 17:39 Freq: Status: Active Protocol: Document 12/26/23 15:29 [facility] (Rec: 12/26/23 16:11 [facility] [id number]) OP-PT Subjective Patient Comments Patient Comments Pt reports his agenda today is to figure out how to stretch his muscles so that they don't keep getting hurt, as last visit shows his muscles are strong. He notices that when his back is sore doing the core exercises helps it to feel better. He hasn't tried sleeping in bed since last reported when he woke up in pain an hour later, and didn't use pillows under lower extremity. PT-OP-F Manual Assessment Start: 10/30/23 17:39 Freq: Status: Active Protocol: Document 10/31/23 15:21 [facility] (Rec: 10/31/23 18:14 [facility] [id number]) Manual Assessments Soft Tissue Assessment Soft Tissue Mobility Assessment L greater trochanter sore, L QL tightness PT-OP-G Mobility & Gait Start: 10/30/23 17:39 Freq: Status: Active Protocol: Document 10/31/23 15:21 [facility] (Rec: 10/31/23 18:14 [facility] [id number]) OP Gait Assessment Comments Gait Comments dec ant dep of L pelvis w/gait PT-OP-J Posture/Palpation/Skin Start: 10/30/23 17:39 Freq: Status: Active Protocol: Document 12/19/23 17:51 [facility] (Rec: 12/20/23 17:59 [facility] [id number]) Posture Evaluation Kian Postural Classification System [facility] Postural Classifications Posterior/Posterior Vertical Compression Test 3 Lumbar Protective Mechanism Left AP 2 Lumbar Protective Mechanism Right AP 3 Lumbar Protective Mechanism Left PA 4 Lumbar Protective Mechanism Right PA 4 PT-OP-K Range of Motion Start: 10/30/23 17:39 Freq: Status: Active Protocol: Document 12/19/23 17:51 [facility] (Rec: 12/20/23 17:59 [facility] [id number]) Lumbar Spine Range of Motion Lumbar Spine Active Percentage Flexion 70 Extension 80 Rotation Left 80 Rotation Right 80 Lateral Flexion Left 60 Lateral Flexion Right 75 Comments pain L w/L SB & w/flex PT-OP-L Special Tests Start: 10/30/23 17:39 Freq: Status: Active Protocol: Document 10/31/23 15:21 [facility] (Rec: 10/31/23 18:14 [facility] [id number]) Special Tests Lumbar Spine Special Tests Nilson Comments mild B iliacus tightness SLR Test Results positive L Slump Test Results positive B (L inc tension) PT-OP-M Strength Start: 10/30/23 17:39 Freq: Status: Active Protocol: Document 12/19/23 17:51 [facility] (Rec: 12/20/23 17:59 [facility] [id number]) Hip Strength Hip Manual Muscle Testing Right Flexion (L2) 5 Normal Extension (S1) 5 Normal Abduction 5 Normal Adduction 5 Normal External Rotation 5 Normal Internal Rotation 5 Normal Left Flexion (L2) 5 Normal Extension (S1) 5 Normal Abduction 5 Normal Adduction 5 Normal External Rotation 5 Normal Internal Rotation 5 Normal PT-OP-Q Treatments Start: 10/30/23 17:39 Freq: Status: Active Protocol: Document 12/26/23 15:29 NB (Rec: 12/26/23 16:11 NB [id number]) Therapeutic Exercises Supine Exercises Stretching Supine Exercise Name 1.Piriformis (Fig. 4, knee to opp chest) 2. HS 3.IT band Side bilateral Equipment Used towel>sheet Reps/Minutes 30-60s ea Comments cues for breath, hold time, pain-free range Sidelying Exercises open book stretch Side bilateral Equipment Used large mat table, 2 pillows Reps/Minutes x10 AROM, 1x20 SH, x20 w/ pillows between LEs Comments cues for relaxed neck, scap setting, PPT and TrA resolves back pain Standing Exercises QL stretch Side bilateral Equipment Used wall Reps/Minutes x30s ea Comments edu for 30s-90s hold in pain- free range Self-Care/Home Management Treatment Education Patient Education Body Mechanics,Home Exercise Program,Posture Other Education -Discussion to attempt sleeping in bed after one hour reading and with pillows under legs, and no pillows were under legs when last attempted. -Edu for how to modify stretches to find pain-free range and how to use breath for gently increasing pain- free range, and instructions to avoid ballistic stretching. Demo'd PT-OP-T Assessment and Plan Start: 10/30/23 17:39 Freq: Status: Active Protocol: Document 12/26/23 15:29 NBM (Rec: 12/26/23 16:11 NB [id number]) Physical Therapy Assessment Goals activity Short Term Goal (STG) Pt will be able to sleep through the night in bed w/o inc pain 12/19-pain after 1 hour 12/25-discussion with pt to attempt again after reading in bed one hour and with pillows under legs. STG Duration 12/08 Dog Obedience Instructor Goal (LTG) pt will be able to do all yard work and inc walking distance >2.5 miles w/o inc pain in back greater than 2/10 12/19-has not tried long walk, has been doing well w/yard work LTG Duration 02/27 DESHAWN Impairment 20/50 Short Term Goal (STG) Pt will improve DESHAWN score to no higher than 13/50 to show improved functional ability. 12/19- STG Duration 01/19 Usp Goal (LTG) Pt will improve DESHAWN score to no higher than 4/50 to show improved functional ability. LTG Duration 02/27 strength Impairment dec core stability Short Term Goal (STG) Pt will be indep w/HEP for core and hip stability STG Duration achieved advancing as able Usp Goal (LTG) Pt will have at least 4/5 LPM in all planes and 5/5 on hip MMT in order to improve stability to allow pt greater ease w/daily life 12/19-met w/EFT, and hip MMT, mild limit LPM AP LTG Duration 02/27 Assessment Summary Assessment Edu to pt how to perform specific stretches in pain- free range. Reviewed options for QL, Open book, piriformis, hamstrings, and IT band stretching w/ emphasis on pain -free range and hold time. Pillows between lower extremities resolves L hip and low back pain with R sidelying open-book stretch; cues for TrA activation w/ PPT resolves mid-back pain in L sidelying. Focus on breath and increasing hold time; edu to pt for breathwork to activate parasympathetic nervous system . Physical Therapy Plan Frequency and Duration Frequency of Treatment 1-2x/wk Duration of treatment (weeks) 10 Plan of Care Start Date 12/20/23 Plan of Care End Date 02/28/24 Therapeutic Interventions Therapeutic Interventions Balance Training,Gait Training ,Home Exercise Program,Joint Mobilizations,Manual Therapy, Patient/Caregiver Education, Self-Care/Home Management,Soft Tissue Mobilization,Taping, Therapeutic Activities, Therapeutic Exercises Modalities Cold Pack/Ice Massage,Electric Stimulation,Hot Packs, Traction- Mechanical Next Visit Focus/Plan Next Note Type Treatment Note Next Visit Plan advance core as able PNF facilitation; manual to innominate and hip and lumbar spine
--- NOTE | 2024-01-02 18:09 | PT.OTN ---
Current Diagnoses Other chronic pain (01/02/24) Low back pain, unspecified (01/02/24) Abnormal posture (01/02/24) Weakness (01/02/24) Physical Therapy Treatment Note PT-OP-A Visit Information Start: 10/30/23 17:39 Freq: Status: Active Protocol: Document 01/02/24 16:03 [facility] (Rec: 01/02/24 18:09 [facility] [id number]) Out-Patient Physical Therapy Visit Information Visit Information Visit Type Treatment Note Visit Note 08/18 Visit Start Time 16:05 Visit Stop Time 16:46 Visit Number 10 Number of BUSINESS PROCESS ARCHITECT Visits 0 PT-OP-B Current Condition Start: 10/30/23 17:39 Freq: Status: Active Protocol: Document 10/31/23 15:21 [facility] (Rec: 10/31/23 18:14 [facility] [id number]) Current Condition History of Current Condition Current Complaints LBP History of Current Condition Pt reports back pain started around 49 years old. He was working out and it went out on him when working out. He was wt lifting doing bench press w /ball under his back. That was the first time his back gave out on him. He couldn't get into the car. He had to lean back in the car and went to hospital. He was given morphine and tried to sit him up and he had extreme pain, so admitted him and was on meds for 2 days. Did PT at that point and it did help. Knows xrays were done and vertebrae were touching. He has a routine that helps his back ( plank and sideplanks). He always has some back pain but that helps manage it. Last year prior to shoulder replacement, did PT idd pain science work which did help. They did build up tolerance w/ activity w/flex etc and it did help. After shoulder replacement, he was limited in exercises. He is focusing on shoulder exercises now and now he cannot lay on bed on back w/o inc pain in back d/t back hurting after a few hours. Has been sleeping in recliner. Denies pain down legs typically. His toes tingle sometimes. He did a couple days ago have pain in post L thigh while doing squat jumps. Prior to surgery, he would hold wts and 18 in step ups and that helped. One of the things that really aggrevates his pain is lunges w/wt. Avoids lunges d/t this. doesn' t run anymore d/t back pain. Limit of back is 2.5 miles. hills don't seem to inc back pain more along the way. walks up the hill backwards until feels quads fatigues then goes fwd; ritiual that pops back ( LTR)-improves pain. pelvic clocks on ball ,mini sit ups over tennis ball Prior Treatments and Tests IMPRESSION: [id number] lumbar spine DDD. Treatment Goals Patient/Caregiver Goals be able to do yard work, be able to jump, be able to sleep in bed PT-OP-C Subjective Start: 10/30/23 17:39 Freq: Status: Active Protocol: Document 01/02/24 16:03 [facility] (Rec: 01/02/24 18:09 [facility] [id number]) OP-PT Subjective Patient Comments Patient Comments pt walked 3 miles at [facility] and stretched piror w/o pain. 2 nights ago laid in bed w/pillows under leg and woke up pain 1.5 hour late then went to recliner and was tight . He spent all yesterday recovering. He called practice specialist and is scheduled for end of Jan. PT-OP-F Manual Assessment Start: 10/30/23 17:39 Freq: Status: Active Protocol: Document 10/31/23 15:21 [facility] (Rec: 10/31/23 18:14 [facility] [id number]) Manual Assessments Soft Tissue Assessment Soft Tissue Mobility Assessment L greater trochanter sore, L QL tightness PT-OP-G Mobility & Gait Start: 10/30/23 17:39 Freq: Status: Active Protocol: Document 10/31/23 15:21 [facility] (Rec: 10/31/23 18:14 [facility] [id number]) OP Gait Assessment Comments Gait Comments dec ant dep of L pelvis w/gait PT-OP-J Posture/Palpation/Skin Start: 10/30/23 17:39 Freq: Status: Active Protocol: Document 12/19/23 17:51 [facility] (Rec: 12/20/23 17:59 [facility] [id number]) Posture Evaluation Kian Postural Classification System Kian Postural Classifications Posterior/Posterior Vertical Compression Test 3 Lumbar Protective Mechanism Left AP 2 Lumbar Protective Mechanism Right AP 3 Lumbar Protective Mechanism Left PA 4 Lumbar Protective Mechanism Right PA 4 PT-OP-K Range of Motion Start: 10/30/23 17:39 Freq: Status: Active Protocol: Document 12/19/23 17:51 [facility] (Rec: 12/20/23 17:59 [facility] [id number]) Lumbar Spine Range of Motion Lumbar Spine Active Percentage Flexion 70 Extension 80 Rotation Left 80 Rotation Right 80 Lateral Flexion Left 60 Lateral Flexion Right 75 Comments pain L w/L SB & w/flex PT-OP-L Special Tests Start: 10/30/23 17:39 Freq: Status: Active Protocol: Document 10/31/23 15:21 [facility] (Rec: 10/31/23 18:14 [facility] [id number]) Special Tests Lumbar Spine Special Tests Nilson Comments mild B iliacus tightness SLR Test Results positive L Slump Test Results positive B (L inc tension) PT-OP-M Strength Start: 10/30/23 17:39 Freq: Status: Active Protocol: Document 12/19/23 17:51 [facility] (Rec: 12/20/23 17:59 [facility] [id number]) Hip Strength Hip Manual Muscle Testing Right Flexion (L2) 5 Normal Extension (S1) 5 Normal Abduction 5 Normal Adduction 5 Normal External Rotation 5 Normal Internal Rotation 5 Normal Left Flexion (L2) 5 Normal Extension (S1) 5 Normal Abduction 5 Normal Adduction 5 Normal External Rotation 5 Normal Internal Rotation 5 Normal PT-OP-Q Treatments Start: 10/30/23 17:39 Freq: Status: Active Protocol: Document 01/02/24 16:03 [facility] (Rec: 01/02/24 18:09 [facility] [id number]) Manual Therapy Treatment Consent Patient gave verbal consent for manual Yes treatment Soft Tissue Mobilization lumbar Body Location B LS multifidi Mobilization Type Rolling,Strumming,Other Intensity/Depth Moderate Body Position Sitting Joint Mobilizations sacrum Comments PA and L UPA sup aspect supine and seated innominate Comments L ext FM s/l Self-Care/Home Management Treatment Education Other Education 10 min:looking at sleep pictures pt brought in and discussed inc ant pelvic tilt and extension in low back and use of model to show that position in facets. Edu on sacral and innominate rotation . PT-OP-T Assessment and Plan Start: 10/30/23 17:39 Freq: Status: Active Protocol: Document 01/02/24 16:03 [facility] (Rec: 01/02/24 18:09 [facility] [id number]) Physical Therapy Assessment Goals activity Short Term Goal (STG) Pt will be able to sleep through the night in bed w/o inc pain 12/19-pain after 1 hour 12/25-discussion with pt to attempt again after reading in bed one hour and with pillows under legs. STG Duration 12/08 Field Support Specialist Goal (LTG) pt will be able to do all yard work and inc walking distance >2.5 miles w/o inc pain in back greater than 2/10 12/19-has not tried long walk, has been doing well w/yard work LTG Duration 02/27 DESHAWN Impairment Short Term Goal (STG) Pt will improve DESHAWN score to no higher than 13/50 to show improved functional ability. 12/19- STG Duration 01/19 Custodial Goal (LTG) Pt will improve DESHAWN score to no higher than 4/50 to show improved functional ability. LTG Duration 02/27 strength Impairment dec core stability Short Term Goal (STG) Pt will be indep w/HEP for core and hip stability STG Duration achieved advancing as able Custodial Goal (LTG) Pt will have at least 4/5 LPM in all planes and 5/5 on hip MMT in order to improve stability to allow pt greater ease w/daily life 12/19-met w/EFT, and hip MMT, mild limit LPM AP LTG Duration 02/27 Assessment Summary Assessment Pt had inc extension in lumbar spine in pictures of sleeping which may be inc pressure in LB when sleeping. Pt had lack of ext of L SI and sacral rot which could be contributing to his pain. Pain improved at end of session Physical Therapy Plan Frequency and Duration Frequency of Treatment 1-2x/wk Duration of treatment (weeks) 10 Plan of Care Start Date 12/20/23 Plan of Care End Date 02/28/24 Next Visit Focus/Plan Next Note Type Treatment Note Next Visit Plan work on sacrum and pelvis and L5-S1 to dec pain in supine; work on post chain and look at hip flexor tightness as potential pull
--- NOTE | 2024-03-03 10:05 | PT.OPDS ---
Current Diagnoses Other chronic pain (01/02/24) Low back pain, unspecified (01/02/24) Abnormal posture (01/02/24) Weakness (01/02/24) Visit Care Team Role Provider Type Brigitte Hopper PA-C Attending Provider Non-Staff Family Provider Primary Care Provider Referring Provider Specialty: Medical Address: [address] [place], [place] [address], [address] Email: Visit Number Visit Number 10 Discharge Summary PT-OP-B Current Condition Start: 10/30/23 17:39 Freq: Status: Active Protocol: Document 10/31/23 15:21 [facility] (Rec: 10/31/23 18:14 [facility] [id number]) Current Condition History of Current Condition Current Complaints LBP History of Current Condition Pt reports back pain started around 49 years old. He was working out and it went out on him when working out. He was wt lifting doing bench press w /ball under his back. That was the first time his back gave out on him. He couldn't get into the car. He had to lean back in the car and went to hospital. He was given morphine and tried to sit him up and he had extreme pain, so admitted him and was on meds for 2 days. Did PT at that point and it did help. Knows xrays were done and vertebrae were touching. He has a routine that helps his back ( plank and sideplanks). He always has some back pain but that helps manage it. Last year prior to shoulder replacement, did PT idd pain science work which did help. They did build up tolerance w/ activity w/flex etc and it did help. After shoulder replacement, he was limited in exercises. He is focusing on shoulder exercises now and now he cannot lay on bed on back w/o inc pain in back d/t back hurting after a few hours. Has been sleeping in recliner. Denies pain down legs typically. His toes tingle sometimes. He did a couple days ago have pain in post L thigh while doing squat jumps. Prior to surgery, he would hold wts and 18 in step ups and that helped. One of the things that really aggrevates his pain is lunges w/wt. Avoids lunges d/t this. doesn' t run anymore d/t back pain. Limit of back is 2.5 miles. hills don't seem to inc back pain more along the way. walks up the hill backwards until feels quads fatigues then goes fwd; ritiual that pops back ( LTR)-improves pain. pelvic clocks on ball ,mini sit ups over tennis ball Prior Treatments and Tests IMPRESSION: [id number] lumbar spine DDD. Treatment Goals Patient/Caregiver Goals be able to do yard work, be able to jump, be able to sleep in bed PT-OP-C Subjective Start: 10/30/23 17:39 Freq: Status: Active Protocol: Document 01/02/24 16:03 [facility] (Rec: 01/02/24 18:09 [facility] [id number]) OP-PT Subjective Patient Comments Patient Comments pt walked [address] [facility] and stretched piror w/o pain. 2 nights ago laid in bed w/pillows under leg and woke up pain 1.5 hour late [facility] . He spent all yesterday recovering. He called senior project controls specialist and is scheduled for end of Jan. PT-OP-F Manual Assessment Start: 10/30/23 17:39 Freq: Status: Active Protocol: Document 10/31/23 15:21 [facility] (Rec: 10/31/23 18:14 [facility] [id number]) Manual Assessments Soft Tissue Assessment Soft Tissue Mobility Assessment L greater trochanter sore, L QL tightness PT-OP-G Mobility & Gait Start: 10/30/23 17:39 Freq: Status: Active Protocol: Document 10/31/23 15:21 [facility] (Rec: 10/31/23 18:14 [facility] [id number]) OP Gait Assessment Comments Gait Comments dec ant dep of L pelvis w/gait PT-OP-J Posture/Palpation/Skin Start: 10/30/23 17:39 Freq: Status: Active Protocol: Document 12/19/23 17:51 [facility] (Rec: 12/20/23 17:59 [facility] [id number]) Posture Evaluation Kian Postural Classification System Kian Postural Classifications Posterior/Posterior Vertical Compression Test 3 Lumbar Protective Mechanism Left AP 2 Lumbar Protective Mechanism Right AP 3 Lumbar Protective Mechanism Left PA 4 Lumbar Protective Mechanism Right PA 4 PT-OP-K Range of Motion Start: 10/30/23 17:39 Freq: Status: Active Protocol: Document 12/19/23 17:51 [facility] (Rec: 12/20/23 17:59 [facility] [id number]) Lumbar Spine Range of Motion Lumbar Spine Active Percentage Flexion 70 Extension 80 Rotation Left 80 Rotation Right 80 Lateral Flexion Left 60 Lateral Flexion Right 75 Comments pain L w/L SB & w/flex PT-OP-L Special Tests Start: 10/30/23 17:39 Freq: Status: Active Protocol: Document 10/31/23 15:21 [facility] (Rec: 10/31/23 18:14 [facility] [id number]) Special Tests Lumbar Spine Special Tests Nilson Comments mild B iliacus tightness SLR Test Results positive L Slump Test Results positive B (L inc tension) PT-OP-M Strength Start: 10/30/23 17:39 Freq: Status: Active Protocol: Document 12/19/23 17:51 [facility] (Rec: 12/20/23 17:59 [facility] [id number]) Hip Strength Hip Manual Muscle Testing Right Flexion (L2) 5 Normal Extension (S1) 5 Normal Abduction 5 Normal Adduction 5 Normal External Rotation 5 Normal Internal Rotation 5 Normal Left Flexion (L2) 5 Normal Extension (S1) 5 Normal Abduction 5 Normal Adduction 5 Normal External Rotation 5 Normal Internal Rotation 5 Normal PT-OP-T Assessment and Plan Start: 10/30/23 17:39 Freq: Status: Active Protocol: Document 03/03/24 10:04 [facility] (Rec: 03/03/24 10:05 [facility] [id number]) Physical Therapy Assessment Goals activity Short Term Goal (STG) Pt will be able to sleep through the night in bed w/o inc pain 12/19-pain after 1 hour 12/25-discussion with pt to attempt again after reading in bed one hour and with pillows under legs. STG Duration 12/08 Intermediate Goal (LTG) pt will be able to do all yard work and inc walking distance >2.5 miles w/o inc pain in back greater than 210 12/19-has not tried long walk, has been doing well w/yard work LTG Duration 02/27 DESHAWN Impairment 20/50 Short Term Goal (STG) Pt will improve DESHAWN score to no higher than 13/50 to show improved functional ability. 12/19-17/50 STG Duration 01/19 Door To Door Selling Agent Goal (LTG) Pt will improve DESHAWN score to no higher than 4/50 to show improved functional ability. LTG Duration 02/27 strength Impairment dec core stability Short Term Goal (STG) Pt will be indep w/HEP for core and hip stability STG Duration achieved advancing as able Intermediate Goal (LTG) Pt will have at least 4/5 LPM in all planes and 5/5 on hip MMT in order to improve stability to allow pt greater ease w/daily life 12/19-met w/EFT, and hip MMT, mild limit LPM AP LTG Duration 02/27 Assessment Summary Assessment Schedulers reached out to patient they're going to be doing some testing at and is 'on hold' for PT at this time. pt has not been seen in 2 months and POC is . At this time, DC d/t no longer attending PT. Pt had made progress and noted back was feeling best it had in a while , but had severe pain sleeping in bed still when last seen. DC d/t no longer attending PT. Physical Therapy Plan Discharge Physical Therapy Discharge Reasons No Longer Attending PT
== END 2024-03-13 14:59 | disposition home or self-care (01) ==
LOC: PHYS 16:00
PROVIDERS: Family Provider Physician Assistant; PCP Physician Assistant; Referring Provider Physician Assistant; Visit Provider Physician Assistant
DX: M54.50 Low back pain, unspecified (principal); G89.29 Other chronic pain; R29.3 Abnormal posture; R53.1 Weakness
CPT/HCPCS: 97110; 97112; 97140; 97162; 97530; 97535

== ENCOUNTER 2024-04-07 20:46 | Emergency (ER) | payer MEDICARE, OTHER, SELFPAY ==
[2024-04-07] VITALS (8 sets, daily range): BP systolic 143–176; BP diastolic 73–86; PULSE 52–68; RESP 18–24; TEMP 37; O2SAT 95–98; BMI 25.7
--- NOTE | 2024-04-07 20:57 | EKG_ITS ---
[address] [address] Test Date: 2024-04-07 Pat Name: Nilson Orozco Department: Room: Gender: Male [employer] Supervisor: KELIN ELLIOTT : 1955 Requested By: Order Number: [id number] Reading MD: Anand Villeda Measurements Intervals [place] Rate: 60 P: 17 [place]: 174 QRS: -28 QRSD: 110 T: 3 QT: 406 QTc: 406 Interpretive Statements Sinus rhythm with premature atrial complexes Incomplete right bundle branch block Minimal voltage criteria for LVH, may be normal variant ( R in aVL ) T wave abnormality, consider anterior ischemia Electronically Signed On 04-08-2024 14:44:23 PDT by Anand Villeda
--- NOTE | 2024-04-07 21:15 | DI.RAD.S_ITS ---
PROCEDURE: XR CHEST 1V INDICATIONS: SOB TECHNIQUE: One view of the chest was acquired. COMPARISON: None. FINDINGS: Surgical changes and devices: Left shoulder arthroplasty.. Lungs and pleura: Lungs are clear. No pleural effusions or pneumothorax. Mediastinum: Mediastinal contours appear normal. Heart size is normal. Bones and chest wall: No suspicious bony lesions. Overlying soft tissues appear unremarkable. IMPRESSION: No acute cardiopulmonary abnormality is seen. Dictated by: Bernabe Lawler M.D. on 04/07/2024 at 22:27 Approved by: Bernabe Lawler M.D. on 04/07/2024 at 22:27
--- NOTE | 2024-04-07 21:16 | ED.GENADULT ---
HPI - General Adult General Chief complaint: Hypertension Stated complaint: high bp Time Seen by Provider: 04/07/24 21:02 Source: patient and family Mode of arrival: Ambulatory History of Present Illness HPI narrative: Patient is a 69-year-old male who is here for evaluation of high blood pressure. He was a history of high blood pressure. Takes a half dose of blood pressure medication since the beginning of this year. He did take his medication today. He states that he was feeling somewhat short of breath. No cough. No sinus congestion. No sore throat. No chest pain. No palpitations. No abdominal pain or nausea vomiting. No lower extremity swelling. He states that he went to go take his blood pressure expecting it actually be somewhat low when he found that the systolic blood pressure was in the 180s. It took an extra dose of his blood pressure medication. When after several hours his blood pressure did not improve decided to come to the ER for evaluation. Related Data Previous Rx's Medication Instructions Recorded hydrocodone 5 mg-acetaminophen 325 1 tab PO TID PRN pain #14 tabs 11/02/22 mg tablet lidocaine 5 % topical patch 1 patch topical DAILY #15 ea 11/02/22 (Lidoderm) naproxen 375 mg tablet 375 mg PO BID PRN pain #20 tabs 11/02/22 prednisone 50 mg tablet 50 mg PO DAILY #5 tabs 11/02/22 Allergies Allergy/AdvReac Type Severity Reaction Status Date / Time iodine AdvReac Verified 11/02/22 16:16 Penicillins AdvReac Verified 11/02/22 16:16 Review of Systems Review of Systems ROS Unobtainable: All systems reviewed & are unremarkable except as noted in HPI and below Patient History Social History Smoking Status: Never smoker Smoking Status: Never smoker Substance Use Type: does not use Exam Initial Vital Signs Initial Vital Signs: Vital Signs Pulse Rate 61 04/07/24 20:55 Pulse Oximetry 98 04/07/24 20:55 Const General: cooperative, comfortable and No ill appearing HENMT Head: normal to inspection Resp Effort & Inspection: normal respiratory effort Auscultation: clear to auscultation bilaterally Cardio Rate: regular rate Rhythm: regular rhythm Skin General: no rashes or lesions noted Neuro General: patient alert, patient awake, patient oriented x3 and moves all extremities Extrem General: No edema Course Orders Ordered: ED Orders 04/07/24 20:57 EKG-12 Lead Stat 04/07/24 21:15 XR chest 1V Stat 04/07/24 21:33 Complete Blood Count AUTO DIFF Stat Comprehensive Metabolic Panel Stat Lipase Stat Troponin & CK Cardiac Panel Stat Vital Signs Vital signs: Vital Signs - 8 hr 04/07/24 20:55 04/07/24 20:56 04/07/24 21:00 Temperature 98.6 F Pulse Rate 61 68 64 Respiratory Rate 24 18 Blood Pressure 176/86 H Pulse Oximetry 98 98 97 Oxygen Delivery Method Room Air Room Air 04/07/24 21:00 04/07/24 21:15 04/07/24 21:15 Temperature Pulse Rate 62 Respiratory Rate 24 Blood Pressure 157/74 H 156/80 H Pulse Oximetry 97 Oxygen Delivery Method 04/07/24 21:30 04/07/24 21:50 04/07/24 21:50 Temperature Pulse Rate 54 L 54 L Respiratory Rate Blood Pressure 157/74 H Pulse Oximetry 95 96 Oxygen Delivery Method 04/07/24 22:00 04/07/24 22:00 Temperature Pulse Rate 52 L Respiratory Rate Blood Pressure 143/73 H Pulse Oximetry 96 Oxygen Delivery Method Room Air Medical Decision Making Lab Data Lab results reviewed: Yes I reviewed the patient's lab results. 04/07/24 21:33 04/07/24 21:33 Labs: Lab Results 04/07/24 Range/Units 21:33 WBC 8.7 (4.5-11.0) X10^3/uL RBC 4.80 (4.5-5.9) X10^6/uL Hgb 14.7 (13.5-17.5) g/dL Hct 43.7 (41-53) % MCV 91.1 (80-100) fL MCH 30.7 (26-34) PG MCHC 33.7 (30-36) % RDW 13.9 (11.6-14.8) % Plt Count 240 (150-400) X10^3/uL Neut % (Auto) 72.4 (50-75) % Lymph % (Auto) 20.3 L (25-40) % [place] % (Auto) 6.4 (3-14) % Eos % (Auto) 0.6 L (2-4) % Baso % (Auto) 0.3 (0-2) % Neut # (Auto) 6300 (5571-8450) /uL Lymph # (Auto) 1800 (1015-0880) /uL [place] # (Auto) 600 (0-900) /uL Eos # (Auto) 0 (0-450) /uL Baso # (Auto) 0 (0-100) /uL Sodium 134 L (137-145) mmol/L Potassium 4.0 (3.4-5.1) mmol/L Chloride 103 (98-107) mmol/L Carbon Dioxide 26 (22-32) mmol/L BUN 27 H (9-20) mg/dL Creatinine 1.11 (0.66-1.25) mg/dL Estimated GFR > 60 (>60) mL/min BUN/Creatinine Ratio 24.3 H (6-22) Glucose 116 H (80-110) mg/dL Calcium 9.7 (8.4-10.2) mg/dL Total Bilirubin 0.4 (0.2-1.3) mg/dL AST 54 (17-59) IU/L ALT 39 (<50) IU/L Alkaline Phosphatase 37 L (38-126) U/L Total Creatine Kinase 341 H (55-170) U/L Troponin I 0.024 (0.01-0.034) ng/mL Total Protein 6.9 (6.3-8.2) g/dL Albumin 4.2 (3.5-5.0) g/dL Globulin 2.7 (1.7-4.1) g/dL Albumin/Globulin Ratio 1.6 (1.0-2.8) Lipase 49 (23-300) U/L Imaging Data Chest x-ray: Radiologist's Impression: PROCEDURE: XR CHEST 1V INDICATIONS: SOB TECHNIQUE: One view of the chest was acquired. COMPARISON: None. FINDINGS: Surgical changes and devices: Left shoulder arthroplasty.. Lungs and pleura: Lungs are clear. No pleural effusions or pneumothorax. Mediastinum: Mediastinal contours appear normal. Heart size is normal. Bones and chest wall: No suspicious bony lesions. Overlying soft tissues appear unremarkable. IMPRESSION: No acute cardiopulmonary abnormality is seen. ECG Data Attestation: I personally reviewed and interpreted this ECG as follows: Interpretation: Sinus rhythm Ventricular rate is 60 Right bundle-branch block Nonspecific ST T wave changes MDM Narrative Medical decision making narrative: Was somewhat hypertensive here in the emergency department however his blood pressure improved without specific intervention. No end-organ dysfunction noted. Not in acute heart failure. Not in renal failure. No indication of intracranial hemorrhage. No ACS. No pulmonary edema. Patient was not take his blood pressure on a regular basis at home. I recommended that before he increased his blood pressure medicine that he should take his blood pressure at home. We discussed specific return precautions. Advised that he contact his primary doctor for follow-up to discuss his home blood pressure measurements to see whether or not he needs to change any medication based on this. He expressed understanding and agreement with plan. Discharge Plan Departure Patient Disposition: Home Clinical Impression: Hypertension Instructions: DI for High Blood Pressure Activity Restrictions/Additional Instructions: I do recommend that you continue to take your medications as directed. Take your blood pressure at home on a daily basis like we discussed and record the results. Talk with your primary doctor about these results to discuss any potential changes in your medications if needed. Return to the emergency department for new or worsening symptoms. Prescriptions: No Action prednisone 50 mg tablet 50 mg PO DAILY Qty: 5 0RF lidocaine [Lidoderm] 5 % adhesive patch,medicated 1 patch topical DAILY Qty: 15 0RF Rx Instructions: leave on most painful area for up to 12 hrs naproxen 375 mg tablet 375 mg PO BID PRN (Reason: pain) Qty: 20 0RF hydrocodone-acetaminophen 5-325 mg tablet 1 tab PO TID PRN (Reason: pain) Qty: 14 0RF Referrals: Brigitte Hopper PA-C [Primary Care Provider] - Stand Alone Forms: Patient Portal/API/Survey
[2024-04-07 21:45] LABS: Add Manual Diff / Slide Review NO; Basophils Absolute Auto 0 /uL (0-100); Basophils Percent Auto 0.3 % (0-2); Eosinophils Absolute Auto 0 /uL (0-450); Eosinophils Percent Auto 0.6 % (2-4); Hematocrit 43.7 % (41-53); Hemoglobin 14.7 g/dL (13.5-17.5); Lymphocytes Absolute Auto 1800 /uL (1100-4500); Lymphocytes Percent Auto 20.3 % (25-40); Mean Corpuscular HGB Conc 33.7 % (30-36); Mean Corpuscular Hemoglobin 30.7 PG (26-34); Mean Corpuscular Volume 91.1 fL (80-100); Monocytes Absolute Auto 600 /uL (0-900); Monocytes Percent Auto 6.4 % (3-14); Neutrophils Absolute Auto 6300 /uL (1500-7000); Neutrophils Percent Auto 72.4 % (50-75); Platelet Count 240 X10^3/uL (150-400); Red Cell Distribution Width 13.9 % (11.6-14.8); White Blood Cell Count 8.7 X10^3/uL (4.5-11.0)
[2024-04-07 21:52] LABS: Alanine Aminotransferase 39 IU/L (<50); Albumin 4.2 g/dL (3.5-5.0); Albumin Globulin Ratio 1.6 (1.0-2.8); Alkaline Phosphatase 37 U/L (38-126); Aspartate Aminotransferase 54 IU/L (17-59); BUN Creatinine Ratio 24.3 (6-22); Bilirubin Total 0.4 mg/dL (0.2-1.3); Blood Urea Nitrogen 27 mg/dL (9-20); Calcium 9.7 mg/dL (8.4-10.2); Carbon Dioxide 26 mmol/L (22-32); Chloride 103 mmol/L (98-107); Creatine Kinase 341 U/L (55-170); Estimated Glomerular Filt Rate > 60 mL/min (>60); Globulin 2.7 g/dL (1.7-4.1); Glucose 116 mg/dL (80-110); HEMOLYSIS 37 (0-50); Lipase 49 U/L (23-300); Sodium 134 mmol/L (137-145); Total Protein 6.9 g/dL (6.3-8.2)
[2024-04-07 22:03] LABS: Troponin I 0.024 ng/mL (0.01-0.034)
== END 2024-04-07 23:00 | disposition home or self-care (01) ==
PROVIDERS: Emergency Provider Emergency Medicine; Family Provider Physician Assistant; PCP Physician Assistant
DX: I10 Essential (primary) hypertension (principal); R06.02 Shortness of breath; I45.10 Unspecified right bundle-branch block
CPT/HCPCS: 36415; 71045; 80053; 82550; 83690; 84484; 85025; 93005; 99284